=== PATIENT | female | born 1960 | race Hispanic/Latino ===

== ENCOUNTER 2016-12-02 19:51 | Inpatient (IN) | payer OTHER ==
[2016-12-02 20:02] VITALS: BMI 32.0
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
[2016-12-02 20:47] LABS: ADD MANUAL DIFF? NO
[2016-12-02 21:02] LABS: ALB/GLOB RATIO 1.2 (1.1-1.8); ALKALINE PHOSPHATASE 97 U/L (38-133); ALT/SGPT 34 U/L (7-56); AST/SGOT 40 U/L (15-39); BILIRUBIN,TOTAL 0.5 mg/dL (0.2-1.3); BLOOD UREA NITROGEN 13 mg/dL (7-21); CALCIUM 9.5 mg/dL (8.4-10.5); CARBON DIOXIDE 26 mmol/L (21-33); CHLORIDE 97 mmol/L (95-110); GFR AFRICAN-AMERICAN > 60; GLUCOSE,RANDOM 134 mg/dL (70-110); POTASSIUM 3.5 mmol/L (3.6-5.0); SODIUM 139 mmol/L (132-148); TOTAL PROTEIN 8.4 g/dL (5.8-8.3)
[2016-12-02 21:07] LABS: BASO # 0.04 K/mm3 (0.0-2.0); BASO % 0.5 % (0.0-3.0); EOS # 0.2 (0.0-0.7); EOS % 2.9 % (1.5-5.0); GRAN # 4.03 (1.4-6.5); HEMATOCRIT 43.7 % (36.0-48.0); LYMPH # 2.8 (1.2-3.4); LYMPH % 37.8 % (22.0-35.0); MEAN CELL VOLUME 88.8 fL (80.0-105.0); MEAN CORPUSCULAR HEMOGLOBIN 31.7 pg (25.0-35.0); MEAN CORPUSCULAR HGB CONC 35.7 g/dl (31.0-37.0); MEAN PLATELET VOLUME 9.8 fl (7.0-11.0); MONO # 0.4 (0.1-0.6); MONO % 4.8 % (1.0-6.0); PLATELET COUNT 289 10^3/uL (120.0-450.0); RED CELL DISTRIBUTION WIDTH 13.1 % (11.5-14.5); WHITE BLOOD COUNT 7.5 10^3/ul (4.5-11.0)
[2016-12-03 00:11] LABS: URINE BILIRUBIN NEGATIVE (NEGATIVE); URINE BLOOD NEGATIVE (NEGATIVE); URINE GLUCOSE (UA) NEGATIVE (NEGATIVE); URINE KETONE NEGATIVE (NEGATIVE); URINE LEUKOCYTE ESTERASE TRACE Leu/uL (NEGATIVE); URINE PROTEIN NEGATIVE mg/dL (<30 mg/dL); URINE UROBILINOGEN 0.2 E.U./dL (<1 E.U./dL)
[2016-12-03 00:13] LABS: URINE APPEARANCE SLIGHT-CLOUDY (CLEAR); URINE COLOR STRAW (YELLOW)
[2016-12-03 00:18] LABS: URINE EPITHELIAL CELLS 0 - 2 /hpf (0-5); URINE RBC 0 - 2 /hpf (0-2)
--- NOTE | 2016-12-03 07:18 | ED PDOC ---
Physical Exam Vital Signs Reviewed: Yes Vital Signs Temp Pulse Resp BP Pulse Ox 12/03/16 11:00 80 19 160/80 H 99 12/03/16 05:56 84 15 153/91 H 97 12/03/16 03:53 98 H 17 120/76 96 12/03/16 00:43 102 H 17 121/68 94 L 12/02/16 22:24 95 H 16 119/86 95 12/02/16 20:01 98.1 F 107 H 24 143/83 95 Temperature: Afebrile Blood Pressure: Normal Pulse: Regular Respiratory Rate: Normal Appearance: Positive for: Well-Appearing, Non-Toxic, Comfortable Pain Distress: None Mental Status: Positive for: Alert and Oriented X 3 Medical Decision Making ED Course and Treatment: 12/03/16 07:00 Patient signed out to me from overnight by Dr. Rivera, pending sobriety, reevaluation and disposition. 12/03/16 08:30 Patient medically clear for PES evaluation. 12/03/16 11:07 Case discussed with PES worker, who evaluated to the patient. She states she spoke with Dr. Swanson, who is aware and agrees with the plan to admit the patient to [facility] under her services for depression. PES work has discussed the plan with the patient, who expresses understanding. Patient given the opportunity to ask question, all questions were answered and there is agreement with the plan to be admitted to the hospital. - Lab Interpretations Lab Results: 12/02/16 20:40 12/02/16 20:40 Lab Results 12/02/16 23:30: Urine Color Straw, Urine Appearance Slight-cloudy, Urine pH 6.0 , Ur Specific [place] <= 1.005, Urine Protein Negative, Urine Glucose (UA) Negative, Urine Ketones Negative, Urine Blood Negative, Urine Nitrate Negative, Urine Bilirubin Negative, Urine Urobilinogen 0.2, Ur Leukocyte Esterase Trace H , Urine RBC 0 - 2, Urine WBC 2 - 5, Ur Epithelial Cells 0 - 2, Urine Opiates Screen Negative, Urine Methadone Screen Negative, Ur Barbiturates Screen Negative, Ur Phencyclidine Scrn Negative, Ur Amphetamines Screen Negative, U Benzodiazepines Scrn Positive H, U Oth Cocaine Metabols Negative, U Cannabinoids Screen Negative 12/02/16 20:40: WBC 7.5, RBC 4.92, Hgb 15.6, Hct 43.7, MCV 88.8, MCH 31.7, MCHC 35.7, RDW 13.1, Plt Count 289, MPV 9.8, Gran % 54.0, Lymph % (Auto) 37.8 H, [place] % (Auto) 4.8, Eos % (Auto) 2.9, Baso % (Auto) 0.5, Gran # 4.03, Lymph # 2.8 , [place] # 0.4, Eos # 0.2, Baso # 0.04, Sodium 139, Potassium 3.5 L, Chloride 97, Carbon Dioxide 26, Anion Gap 20, BUN 13, Creatinine 0.7, Est GFR ( Amer) > 60, Est GFR (Non-Af Amer) > 60, Random Glucose 134 H, Calcium 9.5, Total Bilirubin 0.5, AST 40 H, ALT 34, Alkaline Phosphatase 97, Total Protein 8.4 H, Albumin 4.6, Globulin 3.8, Albumin/Globulin Ratio 1.2, Salicylates < 1 L, Acetaminophen < 10.0 L, Alcohol, Quantitative 306 H* I have reviewed the lab results: Yes - RAD Interpretation Radiology Orders: 12/02/16 20:10 HEAD W/O CONTRAST [CT] Stat - Medication Orders Current Medication Orders: Acetaminophen (Tylenol 325mg Tab) 650 mg PO Q4 PRN PRN Reason: Pain Al Hydrox/Mg Hydrox/Simethicone (Maalox Plus 30 Ml) 30 ml PO DAILY PRN PRN Reason: Upset Stomach Folic Acid (Folic Acid) 1 mg PO DAILY [facility] Last Admin: 12/03/16 12:54 Dose: 1 MG Levothyroxine Sodium (Synthroid) 50 mcg PO ACB KAREN Lorazepam (Ativan) 2 mg PO QID KAREN PRN Reason: Protocol Last Admin: 12/03/16 12:54 Dose: 2 MG Behavioural Document 12/03/16 12:54 RGO (Rec: 12/03/16 12:54 RGO [id number]) Maintenance Maintenance Dose No Nonmedicinal Nonmedicinal Interventions Therapeutic Communication Behavior Behavior for Medication: Anxiety Lorazepam (Ativan) 2 mg PO TID PRN; Protocol PRN Reason: alcohol withdrawal Magnesium Hydroxide (Milk Of Magnesia) 30 ml PO DAILY PRN PRN Reason: Constipation Multivitamins (Thera Tab) 1 tab PO DAILY [facility] Last Admin: 12/03/16 12:54 Dose: 1 TAB Thiamine HCl (Vitamin B1 Tab) 100 mg PO DAILY KAREN Last Admin: 12/03/16 12:54 Dose: 100 MG Trazodone HCl (Desyrel) 50 mg PO HS PRN PRN Reason: Insomnia Discontinued Medications Acetaminophen (Tylenol 325mg Tab) 975 mg PO STAT STA Stop: 12/03/16 11:35 Last Admin: 12/03/16 11:48 Dose: 975 MG MAR Pain/Vitals Document 12/03/16 11:48 SE (Rec: 12/03/16 11:48 SE [id number]) Pain Reassessment Is This A Pain ReAssessment? No Sleep Is patient sleeping during reassessment? No Diphenhydramine HCl (Benadryl) 50 mg PO STAT STA Stop: 12/03/16 04:17 Last Admin: 12/03/16 04:35 Dose: 50 MG Levothyroxine Sodium (Synthroid) 50 mcg PO STAT STA Stop: 12/03/16 11:35 Last Admin: 12/03/16 11:48 Dose: 50 MCG - Scribe Statement The provider has reviewed the documentation as recorded by the Murphy Mendoza Provider Scribe Attestation: All medical record entries made by the Murphy were at my direction and personally dictated by me. I have reviewed the chart and agree that the record accurately reflects my personal performance of the history, physical exam, medical decision making, and the department course for this patient. I have also personally directed, reviewed, and agree with the discharge instructions and disposition. Disposition/Present on Arrival - Present on Arrival Any Indicators Present on Arrival: No History of DVT/PE: No History of Uncontrolled Diabetes: No Urinary Catheter: No History of Decub. Ulcer: No History Surgical Site Infection Following: None - Disposition Have Diagnosis and Disposition been Completed?: Yes Diagnosis: Depression Disposition: HOSPITALIZED Disposition Time: 11:07 Patient Plan: Admission Condition: STABLE
--- NOTE | 2016-12-03 07:26 | CT ---
PROCEDURE: CT HEAD WITHOUT CONTRAST. HISTORY: Fall COMPARISON: None available. TECHNIQUE: Technique: Axial computed tomography was performed through the head/brain without administration of intravenous contrast. This CT exam was performed using one or more of the following dose reduction techniques: Automated exposure control, adjustment of the MA and/or KV according to patient size, and/or use of iterative reconstruction technique. Radiation dose: Total exam DLP = 688.88 mGy-cm. FINDINGS: HEMORRHAGE: No intracranial hemorrhage. BRAIN: No mass effect or edema. No atrophy or chronic microvascular ischemic changes. VENTRICLES: Unremarkable. No hydrocephalus. CALVARIUM: There is no calvarial fracture. There is a small left parietal scalp hematoma. PARANASAL SINUSES: Unremarkable as visualized. No significant inflammatory changes. MASTOID AIR CELLS: Unremarkable as visualized. No inflammatory changes. OTHER FINDINGS: None. IMPRESSION: No acute intracranial abnormality. A preliminary report was provided by [employer] [facility].
[2016-12-03] MEDS ORDERED: Levothyroxine 50 MCG TAB PO STA (11:34)
[2016-12-03] MEDS ORDERED: Alum-Mag Hydrox-Simethicone Susp (30 mL) PO PRN (12:37)
[2016-12-03] MEDS ORDERED: Magnesium Hydroxide Susp 30 ml UD PO PRN (12:37)
[2016-12-03] MEDS: Multivitamin Therapeutic Tab PO SCH (12:54)
[2016-12-03] MEDS ORDERED: Pantoprazole 40 mg EC Tab PO STA (17:26)
[2016-12-04] MEDS: Pantoprazole 40 mg EC Tab PO SCH (08:21)
[2016-12-04] MEDS: Levothyroxine 50 MCG TAB PO SCH (08:22)
[2016-12-04] MEDS: Multivitamin Therapeutic Tab PO SCH (08:22)
[2016-12-04 08:24] LABS: CHOLESTEROL 300 mg/dL (130-200)
[2016-12-04 08:52] LABS: FREE T4 0.9 ng/dL (0.78-2.19)
[2016-12-04 09:06] LABS: THYROID STIMULATING HORMONE 6.53 mIU/mL (0.46-4.68)
--- NOTE | 2016-12-04 12:46 | CON ---
DATE: 12/04/2016 REFERRING PHYSICIAN: Dr. Roselia Swanson REASON FOR EVALUATION: Hypothyroidism and URI symptoms. CHIEF COMPLAINT AND HISTORY OF PRESENT ILLNESS: This is a 56-year-old female who is coming into the hospital with a past medical history of hypothyroidism after she had fallen. She was brought into [facility] ER for further evaluation. The patient states that she had gotten up from a chair and slipped and fell. She also says she has been drinking wine. She denies any chest pain. No shortness of breath. She also takes ____ that she does take Xanax as well and mixes with drinking. She has no complaint s of any chest pain. This morning, she says she has some congestion, but no cough. No fevers or chi lls. No weakness in the arms or the legs. REVIEW OF SYSTEMS: All other review of symptoms are within normal limits except as mentioned. ALLERGIES: FISH. HOME MEDICATIONS: None. FAMILY HISTORY: No family history. ALLERGIES: No known drug allergies. SOCIAL HISTORY: She does not smoke. She does drink beer daily. She does have a history of substanc e abuse. Her urine was positive for benzos. Alcohol was 306. PHYSICAL EXAMINATION: VITAL SIGNS: Temperature is 98.1, pulse of 79, blood pressure is 123/86, respirations 20. Height is 5 feet 2 inches. Weight is 175 pounds. BMI is 32. GENERAL: Patient lying in bed, flat, and in no apparent distress. HEAD AND NECK EXAM: Atraumatic, normocephalic. Conjunctivae are pink. Throat clear and mouth with moist mucosa. Oropharynx benign. EYES: Extraocular movements are intact. PERRLA. NECK: Supple. No JVD, thyromegaly, or adenopathy. No bruits. HEART: S1 and S2 regular rate and rhythm. No murmurs, rubs, or gallops. LUNGS: Clear to auscultation bilaterally. No wheezing rales or rhonchi appreciated. No retraction s on exam. ABDOMEN: Soft, nontender, nondistended. Bowel sounds are positive in all quadrants. No rebound. No hepatosplenomegaly. EXTREMITIES: No cyanosis, clubbing, or edema. NEURO: No facial asymmetry, tongue is midline, no uvula deviation. Power is 5/5 in upper extremity and 5/5 in lower extremity. Sensation is normal in upper extremity and lower extremity. PSYCH: Awake, alert, oriented x3. No anxiety or depression symptoms. Good insight. Normal affec t. : No CVA tenderness VASCULAR: 2+ pulses in carotid and pedal pulses. SKIN: No erythema or abnormal nodules noted. SPINE: Normal curvature. LYMPHADENOPATHY: No anterior cervical or posterior cervical adenopathy. No inguinal adenopathy. LABORATORY DATA: Reviewed. White count of 7.5, hemoglobin 15.6. Chemistry shows a sodium of 139, p otassium 3.9. LDL is 173, cholesterol is 300, TSH is 6.5. Urine shows that blood is negative, nitri pao are negative. Head CT done shows no acute intracranial findings. ASSESSMENT: 1. Alcoholism. 2. Fall. 3. Hypothyroidism. PLAN: The patient is going to be admitted to the hospital. She is currently on the psychiatric floo r. The patient is on folic acid, is going to continue with Protonix. The patient is on Synthroid fo r hypothyroidism. Thiamine has been started as well. She is on a regular diet. Currently, the cynthia ent does not require any antibiotics. I will place her on ____ for her congestion. The patient has no other active medical issues. We will sign off for now. Reconsult if needed. Jason Alcocer MD cc: [id number] TT: 12/04/2016 12:46:15 Confirmation # [id number] Dictation # [id number]
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
[2016-12-04] MEDS: Amoxicillin-Clav 875-125 mg Tab PO SCH (17:27)
[2016-12-05] MEDS: Levothyroxine 50 MCG TAB PO SCH (08:07)
[2016-12-05] MEDS: Amoxicillin-Clav 875-125 mg Tab PO SCH ×2 (08:27→16:18)
[2016-12-05] MEDS: Pantoprazole 40 mg EC Tab PO SCH (08:27)
[2016-12-05] MEDS: Multivitamin Therapeutic Tab PO SCH (08:28)
--- NOTE | 2016-12-05 12:50 | PCM.PYCHPN ---
Psychiatric Progress Note - Psychiatric Progress Note Patient seen today, length of contact: 30min Patient Chief Complaint: "I was very depressed and embarrassed, I had bad thoughts in my mind" Problems Identified/Issues Discussed: Suicide/ homicide prevention, past psychiatric h/o, current psychiatric symptoms , medical problems, risk/benefits and alternatives of medications, medications compliance, coping strategies, substance abuse h/o, relapse prevention, importance of follow up with psychiatrist and therapist, discharge plan. Medical Problems: UTI currently, hypothyroidism. Diagnostic Results: 12/02/16 20:40 12/02/16 20:40 Lab Results 12/04/16 07:45: Triglycerides 274 H, Cholesterol 300 H, LDL Cholesterol Direct 173 H, HDL Cholesterol 72 H, Free T4 0.90, TSH 3rd Generation 6.53 H, RPR Nonreactive 12/02/16 23:30: Urine Color Straw, Urine Appearance Slight-cloudy, Urine pH 6.0 , Ur Specific [place] <= 1.005, Urine Protein Negative, Urine Glucose (UA) Negative, Urine Ketones Negative, Urine Blood Negative, Urine Nitrate Negative, Urine Bilirubin Negative, Urine Urobilinogen 0.2, Ur Leukocyte Esterase Trace H , Urine RBC 0 - 2, Urine WBC 2 - 5, Ur Epithelial Cells 0 - 2, Urine Opiates Screen Negative, Urine Methadone Screen Negative, Ur Barbiturates Screen Negative, Ur Phencyclidine Scrn Negative, Ur Amphetamines Screen Negative, U Benzodiazepines Scrn Positive H, U Oth Cocaine Metabols Negative, U Cannabinoids Screen Negative 12/02/16 20:40: WBC 7.5, RBC 4.92, Hgb 15.6, Hct 43.7, MCV 88.8, MCH 31.7, MCHC 35.7, RDW 13.1, Plt Count 289, MPV 9.8, Gran % 54.0, Lymph % (Auto) 37.8 H, [place] % (Auto) 4.8, Eos % (Auto) 2.9, Baso % (Auto) 0.5, Gran # 4.03, Lymph # 2.8 , [place] # 0.4, Eos # 0.2, Baso # 0.04, Sodium 139, Potassium 3.5 L, Chloride 97, Carbon Dioxide 26, Anion Gap 20, BUN 13, Creatinine 0.7, Est GFR ( Amer) > 60, Est GFR (Non-Af Amer) > 60, Random Glucose 134 H, Calcium 9.5, Total Bilirubin 0.5, AST 40 H, ALT 34, Alkaline Phosphatase 97, Total Protein 8.4 H, Albumin 4.6, Globulin 3.8, Albumin/Globulin Ratio 1.2, Salicylates < 1 L, Acetaminophen < 10.0 L, Alcohol, Quantitative 306 H* Vital Signs Temp Pulse Resp BP Pulse Ox 12/05/16 07:22 98.1 F 79 20 130/99 H 12/04/16 16:32 84 151/94 H 12/04/16 09:50 98.1 F 79 20 123/86 12/03/16 11:00 80 19 160/80 H 99 12/03/16 05:56 84 15 153/91 H 97 12/03/16 03:53 98 H 17 120/76 96 12/03/16 00:43 102 H 17 121/68 94 L 12/02/16 22:24 95 H 16 119/86 95 12/02/16 20:01 98.1 F 107 H 24 143/83 95 DSM 5 Symptoms Update: shortly pt is 56yo dictation female, self reported history of major depressive disorder, history of one hospitalization in to the psychiatric inpatient unit here in [place], was under care of off Dr. 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 patient was seen today at the treatment team meeting, acceptable personal hygiene, seems to be careless about her appearance, fair ADLs. pt has mild tremor in her UE, vitals are stable. pt reported to feel nauseated, pt said she did not sleep last night, willing to increase dose of sonata. pt said that she feels depressed and "embarrased", pt said prior to come to the hospital she was feeling hopeless and she "needed to have help". pt c/o headache s/p fall, ibuprofen was started. pt still has difficulties to stay focused and concentrate. SIM symptoms, h/o panic attacks. as per staff pt started to go to groups, no behavioral issues. pt tolerated meds well, no side effects observed or reported, AIMS 0, no EPS. Impression: DSM 5 Diagnosis: major depressive disorder, recurrent, severe, with no psychotic symptoms Alcohol use disorder Alcohol withdrawal symptoms Rule out generalized anxiety disorder Rule out panic disorder Medication Change: Yes (sonata increased) Medical Record Reviewed: Yes Consults ordered or reviewed: medical consult appreciated. Mental Status Examination - Cognitive Function Orientation: Person, Place Memory: Intact Attention: Poor Concentration: Poor Association: WNL Fund of Knowledge: WNL - Mood Mood: Depressed, Anxious - Affect Affect: Flat - Speech Speech: Appropriate - Formal Thought Process Formal Thought Process: No Impairment - Suicidal Ideation Suicidal Ideation: No - Homicidal Ideation Homicidal Ideation: No Goal/Treatment Plan - Goal/Treatment Plan Need for Continued Stay: Remain at risks for inpatient hospitalization, Severe depression anxiety, Discharge may exacerbated symptoms, Severe functional impairment Progress Toward Problem(s) and Goals/Treatment Plan: milieu, structure, supportive therapy Effexor will be started 37.5 mg daily for depression and anxiety sonata will be increased to 10mg po daily Ativan 2 mg 4 times a day scheduled for alcohol withdrawal symptoms, will keep for now, pt has elevated BP Multivitamins thiamine and folic acid was started Naltrexone was discussed with the patient patient is willing to try that medication 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 pt wants to go to rehab Estimated Date of D/C: 12/08/16 (will monitor closely)
[2016-12-06] MEDS: Levothyroxine 50 MCG TAB PO SCH (06:42)
[2016-12-06] MEDS: Pantoprazole 40 mg EC Tab PO SCH (07:54)
[2016-12-06] MEDS: Multivitamin Therapeutic Tab PO SCH (07:54)
[2016-12-06] MEDS: Amoxicillin-Clav 875-125 mg Tab PO SCH ×2 (07:54→16:17)
--- NOTE | 2016-12-06 08:47 | PCM.PYCHPN ---
Psychiatric Progress Note - Psychiatric Progress Note Patient seen today, length of contact: 30min Patient Chief Complaint: "I feel nauseated" Problems Identified/Issues Discussed: Suicide/ homicide prevention, past psychiatric h/o, current psychiatric symptoms , medical problems, risk/benefits and alternatives of medications, medications compliance, coping strategies, substance abuse h/o, relapse prevention, importance of follow up with psychiatrist and therapist, discharge plan. Medical Problems: UTI currently, hypothyroidism. Diagnostic Results: 12/02/16 20:40 12/02/16 20:40 Lab Results 12/04/16 07:45: Triglycerides 274 H, Cholesterol 300 H, LDL Cholesterol Direct 173 H, HDL Cholesterol 72 H, Free T4 0.90, TSH 3rd Generation 6.53 H, RPR Nonreactive 12/02/16 23:30: Urine Color Straw, Urine Appearance Slight-cloudy, Urine pH 6.0 , Ur Specific [place] <= 1.005, Urine Protein Negative, Urine Glucose (UA) Negative, Urine Ketones Negative, Urine Blood Negative, Urine Nitrate Negative, Urine Bilirubin Negative, Urine Urobilinogen 0.2, Ur Leukocyte Esterase Trace H , Urine RBC 0 - 2, Urine WBC 2 - 5, Ur Epithelial Cells 0 - 2, Urine Opiates Screen Negative, Urine Methadone Screen Negative, Ur Barbiturates Screen Negative, Ur Phencyclidine Scrn Negative, Ur Amphetamines Screen Negative, U Benzodiazepines Scrn Positive H, U Oth Cocaine Metabols Negative, U Cannabinoids Screen Negative 12/02/16 20:40: WBC 7.5, RBC 4.92, Hgb 15.6, Hct 43.7, MCV 88.8, MCH 31.7, MCHC 35.7, RDW 13.1, Plt Count 289, MPV 9.8, Gran % 54.0, Lymph % (Auto) 37.8 H, [place] % (Auto) 4.8, Eos % (Auto) 2.9, Baso % (Auto) 0.5, Gran # 4.03, Lymph # 2.8 , [place] # 0.4, Eos # 0.2, Baso # 0.04, Sodium 139, Potassium 3.5 L, Chloride 97, Carbon Dioxide 26, Anion Gap 20, BUN 13, Creatinine 0.7, Est GFR ( Amer) > 60, Est GFR (Non-Af Amer) > 60, Random Glucose 134 H, Calcium 9.5, Total Bilirubin 0.5, AST 40 H, ALT 34, Alkaline Phosphatase 97, Total Protein 8.4 H, Albumin 4.6, Globulin 3.8, Albumin/Globulin Ratio 1.2, Salicylates < 1 L, Acetaminophen < 10.0 L, Alcohol, Quantitative 306 H* Vital Signs Temp Pulse Resp BP Pulse Ox 12/05/16 07:22 98.1 F 79 20 130/99 H 12/04/16 16:32 84 151/94 H 12/04/16 09:50 98.1 F 79 20 123/86 12/03/16 11:00 80 19 160/80 H 99 12/03/16 05:56 84 15 153/91 H 97 12/03/16 03:53 98 H 17 120/76 96 12/03/16 00:43 102 H 17 121/68 94 L 12/02/16 22:24 95 H 16 119/86 95 12/02/16 20:01 98.1 F 107 H 24 143/83 95 Temp Pulse Resp BP Pulse Ox 97.1 F L 89 20 147/101 H 99 12/06/16 07:38 12/06/16 07:38 12/06/16 07:38 12/06/16 07:38 12/03/16 11:00 DSM 5 Symptoms Update: shortly pt is 56yo dictation female, self reported history of major depressive disorder, history of one hospitalization in to the psychiatric inpatient unit here in [place], was under care of off Dr. 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 patient was seen today next to the nursing station, acceptable personal hygiene , affect was more bright. pt said that she still has nausea and she is not sure what it is related to. BP is elevated, will call for medical follow up. pt reported to feel nauseated, pt said she did not sleep last night, willing to increase dose of sonata. pt said that she feels depressed "I have some thoughts over night", when was asked for clarification "I have some good thoughts which could lead me to do well in the future", pt reported that she feels anxious, but overall little better. pt still has difficulties to stay focused and concentrate. SIM symptoms, h/o panic attacks. as per staff pt started to go to groups, no behavioral issues. pt tolerated meds well, no side effects observed or reported, AIMS 0, no EPS. Impression: DSM 5 Diagnosis: major depressive disorder, recurrent, severe, with no psychotic symptoms Alcohol use disorder Alcohol withdrawal symptoms Rule out generalized anxiety disorder Rule out panic disorder Medication Change: Yes (sonata d/c, ambien started, effexor increased) Medical Record Reviewed: Yes Consults ordered or reviewed: medical consult appreciated. medical follow up called Mental Status Examination - Cognitive Function Orientation: Person, Place Memory: Intact Attention: Poor (some improvement) Concentration: Poor (some improvement) Association: WNL Fund of Knowledge: WNL - Mood Mood: Depressed ("little better"), Anxious - Affect Affect: Flat - Speech Speech: Appropriate - Formal Thought Process Formal Thought Process: No Impairment - Suicidal Ideation Suicidal Ideation: No - Homicidal Ideation Homicidal Ideation: No Goal/Treatment Plan - Goal/Treatment Plan Need for Continued Stay: Remain at risks for inpatient hospitalization, Severe depression anxiety, Discharge may exacerbated symptoms, Severe functional impairment Progress Toward Problem(s) and Goals/Treatment Plan: milieu, structure, supportive therapy Effexor will be increased to 75 mg daily for depression and anxiety sonata d/c ambien 5mg hs started for insomnia Ativan 2 mg 4 times a day scheduled for alcohol withdrawal symptoms, will keep for now, pt has elevated BP Multivitamins thiamine and folic acid was started Naltrexone was discussed with the patient patient is willing to try that medication 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 pt wants to go to rehab Estimated Date of D/C: 12/08/16 (will monitor closely)
[2016-12-07] MEDS: Pantoprazole 40 mg EC Tab PO SCH (08:16)
[2016-12-07] MEDS: Levothyroxine 50 MCG TAB PO SCH (08:16)
[2016-12-07] MEDS: Amoxicillin-Clav 875-125 mg Tab PO SCH ×2 (08:17→17:06)
[2016-12-07] MEDS: Multivitamin Therapeutic Tab PO SCH (08:17)
--- NOTE | 2016-12-07 18:15 | PCM.PYCHPN ---
Psychiatric Progress Note - Psychiatric Progress Note Patient seen today, length of contact: 30min Patient Chief Complaint: "I am more hopeful" Problems Identified/Issues Discussed: Suicide/ homicide prevention, past psychiatric h/o, current psychiatric symptoms , medical problems, risk/benefits and alternatives of medications, medications compliance, coping strategies, substance abuse h/o, relapse prevention, importance of follow up with psychiatrist and therapist, discharge plan. Medical Problems: UTI currently, hypothyroidism. Diagnostic Results: 12/02/16 20:40 12/02/16 20:40 Lab Results 12/04/16 07:45: Triglycerides 274 H, Cholesterol 300 H, LDL Cholesterol Direct 173 H, HDL Cholesterol 72 H, Free T4 0.90, TSH 3rd Generation 6.53 H, RPR Nonreactive 12/02/16 23:30: Urine Color Straw, Urine Appearance Slight-cloudy, Urine pH 6.0 , Ur Specific [place] <= 1.005, Urine Protein Negative, Urine Glucose (UA) Negative, Urine Ketones Negative, Urine Blood Negative, Urine Nitrate Negative, Urine Bilirubin Negative, Urine Urobilinogen 0.2, Ur Leukocyte Esterase Trace H , Urine RBC 0 - 2, Urine WBC 2 - 5, Ur Epithelial Cells 0 - 2, Urine Opiates Screen Negative, Urine Methadone Screen Negative, Ur Barbiturates Screen Negative, Ur Phencyclidine Scrn Negative, Ur Amphetamines Screen Negative, U Benzodiazepines Scrn Positive H, U Oth Cocaine Metabols Negative, U Cannabinoids Screen Negative 12/02/16 20:40: WBC 7.5, RBC 4.92, Hgb 15.6, Hct 43.7, MCV 88.8, MCH 31.7, MCHC 35.7, RDW 13.1, Plt Count 289, MPV 9.8, Gran % 54.0, Lymph % (Auto) 37.8 H, [place] % (Auto) 4.8, Eos % (Auto) 2.9, Baso % (Auto) 0.5, Gran # 4.03, Lymph # 2.8 , [place] # 0.4, Eos # 0.2, Baso # 0.04, Sodium 139, Potassium 3.5 L, Chloride 97, Carbon Dioxide 26, Anion Gap 20, BUN 13, Creatinine 0.7, Est GFR ( Amer) > 60, Est GFR (Non-Af Amer) > 60, Random Glucose 134 H, Calcium 9.5, Total Bilirubin 0.5, AST 40 H, ALT 34, Alkaline Phosphatase 97, Total Protein 8.4 H, Albumin 4.6, Globulin 3.8, Albumin/Globulin Ratio 1.2, Salicylates < 1 L, Acetaminophen < 10.0 L, Alcohol, Quantitative 306 H* Vital Signs Temp Pulse Resp BP Pulse Ox 12/05/16 07:22 98.1 F 79 20 130/99 H 12/04/16 16:32 84 151/94 H 12/04/16 09:50 98.1 F 79 20 123/86 12/03/16 11:00 80 19 160/80 H 99 12/03/16 05:56 84 15 153/91 H 97 12/03/16 03:53 98 H 17 120/76 96 12/03/16 00:43 102 H 17 121/68 94 L 12/02/16 22:24 95 H 16 119/86 95 12/02/16 20:01 98.1 F 107 H 24 143/83 95 Temp Pulse Resp BP Pulse Ox 97.1 F L 89 20 147/101 H 99 12/06/16 07:38 12/06/16 07:38 12/06/16 07:38 12/06/16 07:38 12/03/16 11:00 Temp Pulse Resp BP Pulse Ox 98.3 F 80 20 139/79 99 12/07/16 07:06 12/07/16 16:24 12/07/16 07:06 12/07/16 16:24 12/03/16 11:00 DSM 5 Symptoms Update: shortly pt is 56yo dictation female, self reported history of major depressive disorder, history of one hospitalization in to the psychiatric inpatient unit here in [place], was under care of off Dr. 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 patient was seen today at the treatment team meeting, acceptable personal hygiene, affect was more bright. no nausea, vitals are stable. pt has no episodes of confusion, pt slept better. Pt wants to go to rehab facility on Saturday. pt said that she feels depressed but "I have a hope that I will be better, I can stay sober". pt still has difficulties to stay focused and concentrate. SIM symptoms, h/o panic attacks. as per staff pt started to go to groups, no behavioral issues. pt tolerated meds well, no side effects observed or reported, AIMS 0, no EPS. Impression: DSM 5 Diagnosis: major depressive disorder, recurrent, severe, with no psychotic symptoms Alcohol use disorder Alcohol withdrawal symptoms Rule out generalized anxiety disorder Rule out panic disorder Medication Change: Yes (seroquel started, ativan tapering down) Medical Record Reviewed: Yes Consults ordered or reviewed: medical consult appreciated. medical follow up called, meds adjustment appreciated Mental Status Examination - Cognitive Function Orientation: Person, Place Memory: Intact Attention: Poor (some improvement) Concentration: Poor (some improvement) Association: WNL Fund of Knowledge: WNL - Mood Mood: Depressed ("little better"), Anxious - Affect Affect: Flat - Speech Speech: Appropriate - Formal Thought Process Formal Thought Process: No Impairment - Suicidal Ideation Suicidal Ideation: No - Homicidal Ideation Homicidal Ideation: No Goal/Treatment Plan - Goal/Treatment Plan Need for Continued Stay: Remain at risks for inpatient hospitalization, Severe depression anxiety, Discharge may exacerbated symptoms, Severe functional impairment Progress Toward Problem(s) and Goals/Treatment Plan: milieu, structure, supportive therapy Effexor XR 75 mg daily for depression and anxiety sonata d/c seroquel 50mg hs ambien 5mg hs started for insomnia Ativan 2 mg 3 times a day scheduled for alcohol withdrawal symptoms OVER THE WEEKEND PLEASE TAPER ATIVAN OFF Multivitamins thiamine and folic acid Naltrexone was discussed does not want to be on it Flavia garcia workers compensation administrator evaluation Medical consult appreciated, patient was started on antibiotics for urinary tract infection We'll monitor closely. pt wants to go to rehab, possible transfer on Saturday Estimated Date of D/C: 12/10/16 (will monitor closely)
[2016-12-08 07:12] VITALS: O2SAT 96
[2016-12-08] MEDS: Levothyroxine 50 MCG TAB PO SCH (08:20)
[2016-12-08] MEDS: Pantoprazole 40 mg EC Tab PO SCH (08:20)
[2016-12-08] MEDS: Amoxicillin-Clav 875-125 mg Tab PO SCH ×2 (08:51→17:27)
[2016-12-08] MEDS: Multivitamin Therapeutic Tab PO SCH (08:51)
--- NOTE | 2016-12-08 09:06 | PCM.PYCHPN ---
Psychiatric Progress Note - Psychiatric Progress Note Patient seen today, length of contact: 25 min Patient Chief Complaint: "improving" Problems Identified/Issues Discussed: I reviewed assessment and recent notes. Patient was interviewed at bedside.Patient is calm and well oriented. Reports continued depression however indicates that she is improving. Feels neither hopeful or hopeless and denies suicidal thoughts. Affect is constricted. Thought process is coherent and delusions were not elicited. Patient denies any perceptual disturbance on the unit. She has been tolerating medications and denies any new discomfort or pain. Indicate that withdrawal symptoms are improving. Sleep is "on and off". Nursing notes indicate the patient is looking brighter and has been cooperative on the unit. There were no behavioral issues overnight. Diagnostic Results: major depressive disorder, recurrent, severe, with no psychotic symptoms Alcohol use disorder Alcohol withdrawal symptoms Rule out generalized anxiety disorder Rule out panic disorder Medication Change: Yes ( ativan tapering down) Medical Record Reviewed: Yes Mental Status Examination - Cognitive Function Orientation: Person, Place Memory: Intact Attention: Poor (some improvement) Concentration: Poor (some improvement) Association: WNL Fund of Knowledge: WNL - Mood Mood: Depressed ("little better"), Anxious - Affect Affect: Flat - Speech Speech: Appropriate - Formal Thought Process Formal Thought Process: No Impairment - Suicidal Ideation Suicidal Ideation: No - Homicidal Ideation Homicidal Ideation: No Goal/Treatment Plan - Goal/Treatment Plan Need for Continued Stay: Remain at risks for inpatient hospitalization, Severe depression anxiety, Discharge may exacerbated symptoms, Severe functional impairment Progress Toward Problem(s) and Goals/Treatment Plan: * c/w current tx and plan * c/w Ativan taper 2mg TID to 2 mg q12 today * No new weekend labs * Vitals reviewed and noted below: Selected Entries 12/07/16 12/07/16 07:06 16:24 Temperature 98.3 F Pulse Rate 76 80 Respiratory 20 Rate Blood Pressure 116/74 139/79 Estimated Date of D/C: 12/10/16 (will monitor closely)
[2016-12-09] MEDS: Pantoprazole 40 mg EC Tab PO SCH (07:52)
[2016-12-09] MEDS: Levothyroxine 50 MCG TAB PO SCH (07:52)
[2016-12-09] MEDS: Amoxicillin-Clav 875-125 mg Tab PO SCH ×2 (08:50→16:55)
[2016-12-09] MEDS: Multivitamin Therapeutic Tab PO SCH (08:50)
--- NOTE | 2016-12-09 09:23 | PCM.PYCHPN ---
Psychiatric Progress Note - Psychiatric Progress Note Patient seen today, length of contact: 25 min Patient Chief Complaint: "improving" Problems Identified/Issues Discussed: I reviewed recent notes and met with patient at bedside. Patient remains calm and well oriented. Reports continued depression however indicates that she is improving. Feels neither hopeful or hopeless and denies suicidal thoughts. Affect is constricted. Thought process is coherent and delusions were not elicited. Patient denies any perceptual disturbance on the unit. She has been tolerating medications and denies any new discomfort or pain. Indicate that withdrawal symptoms are improving. She still has some anxiety but generally handling taper of Ativan. Sleep is usually "on and off" however she slept fairly well last night. Nursing notes indicate that patient is controlled and looking brighter on unit. There were no behavioral issues over the weekend. Diagnostic Results: major depressive disorder, recurrent, severe, with no psychotic symptoms Alcohol use disorder Alcohol withdrawal symptoms Rule out generalized anxiety disorder Rule out panic disorder Medication Change: Yes ( ativan tapering down) Medical Record Reviewed: Yes (notes, reports, labs, vitals) Mental Status Examination - Cognitive Function Orientation: Person, Place Memory: Intact Attention: Poor (some improvement) Concentration: Poor (some improvement) Association: WNL Fund of Knowledge: WNL - Mood Mood: Depressed ("little better"), Anxious - Affect Affect: Flat - Speech Speech: Appropriate - Formal Thought Process Formal Thought Process: No Impairment - Suicidal Ideation Suicidal Ideation: No - Homicidal Ideation Homicidal Ideation: No Goal/Treatment Plan - Goal/Treatment Plan Need for Continued Stay: Remain at risks for inpatient hospitalization, Severe depression anxiety, Discharge may exacerbated symptoms, Severe functional impairment Progress Toward Problem(s) and Goals/Treatment Plan: * c/w current tx and plan * c/w Ativan taper from 2 mg q12 to 2 mg HS today and then discontinue * No new weekend labs * Vitals reviewed and noted below: Selected Entries 12/09/16 12/09/16 07:47 08:55 Temperature 98.2 F Pulse Rate 70 70 Respiratory 20 Rate Blood Pressure 110/74 110/74 Estimated Date of D/C: 12/10/16 (will monitor closely)
[2016-12-10] MEDS: Levothyroxine 50 MCG TAB PO SCH (06:57)
[2016-12-10] MEDS: Pantoprazole 40 mg EC Tab PO SCH (08:05)
[2016-12-10] MEDS: Multivitamin Therapeutic Tab PO SCH (08:45)
[2016-12-10] MEDS: Amoxicillin-Clav 875-125 mg Tab PO SCH ×2 (08:45→17:37)
--- NOTE | 2016-12-10 18:34 | PCM.PYCHPN ---
Psychiatric Progress Note - Psychiatric Progress Note Patient seen today, length of contact: 30min Patient Chief Complaint: "I am not ready, I am very anxious, I am not sure if I want to go to rehab, I had bad thoughts last night..." Problems Identified/Issues Discussed: Suicide/ homicide prevention, past psychiatric h/o, current psychiatric symptoms , medical problems, risk/benefits and alternatives of medications, medications compliance, coping strategies, substance abuse h/o, relapse prevention, importance of follow up with psychiatrist and therapist, discharge plan. Medical Problems: UTI currently, hypothyroidism. Diagnostic Results: 12/02/16 20:40 12/02/16 20:40 Lab Results 12/04/16 07:45: Triglycerides 274 H, Cholesterol 300 H, LDL Cholesterol Direct 173 H, HDL Cholesterol 72 H, Free T4 0.90, TSH 3rd Generation 6.53 H, RPR Nonreactive 12/02/16 23:30: Urine Color Straw, Urine Appearance Slight-cloudy, Urine pH 6.0 , Ur Specific [place] <= 1.005, Urine Protein Negative, Urine Glucose (UA) Negative, Urine Ketones Negative, Urine Blood Negative, Urine Nitrate Negative, Urine Bilirubin Negative, Urine Urobilinogen 0.2, Ur Leukocyte Esterase Trace H , Urine RBC 0 - 2, Urine WBC 2 - 5, Ur Epithelial Cells 0 - 2, Urine Opiates Screen Negative, Urine Methadone Screen Negative, Ur Barbiturates Screen Negative, Ur Phencyclidine Scrn Negative, Ur Amphetamines Screen Negative, U Benzodiazepines Scrn Positive H, U Oth Cocaine Metabols Negative, U Cannabinoids Screen Negative 12/02/16 20:40: WBC 7.5, RBC 4.92, Hgb 15.6, Hct 43.7, MCV 88.8, MCH 31.7, MCHC 35.7, RDW 13.1, Plt Count 289, MPV 9.8, Gran % 54.0, Lymph % (Auto) 37.8 H, [place] % (Auto) 4.8, Eos % (Auto) 2.9, Baso % (Auto) 0.5, Gran # 4.03, Lymph # 2.8 , [place] # 0.4, Eos # 0.2, Baso # 0.04, Sodium 139, Potassium 3.5 L, Chloride 97, Carbon Dioxide 26, Anion Gap 20, BUN 13, Creatinine 0.7, Est GFR ( Amer) > 60, Est GFR (Non-Af Amer) > 60, Random Glucose 134 H, Calcium 9.5, Total Bilirubin 0.5, AST 40 H, ALT 34, Alkaline Phosphatase 97, Total Protein 8.4 H, Albumin 4.6, Globulin 3.8, Albumin/Globulin Ratio 1.2, Salicylates < 1 L, Acetaminophen < 10.0 L, Alcohol, Quantitative 306 H* Vital Signs Temp Pulse Resp BP Pulse Ox 12/05/16 07:22 98.1 F 79 20 130/99 H 12/04/16 16:32 84 151/94 H 12/04/16 09:50 98.1 F 79 20 123/86 12/03/16 11:00 80 19 160/80 H 99 12/03/16 05:56 84 15 153/91 H 97 12/03/16 03:53 98 H 17 120/76 96 12/03/16 00:43 102 H 17 121/68 94 L 12/02/16 22:24 95 H 16 119/86 95 12/02/16 20:01 98.1 F 107 H 24 143/83 95 Temp Pulse Resp BP Pulse Ox 97.1 F L 89 20 147/101 H 99 12/06/16 07:38 12/06/16 07:38 12/06/16 07:38 12/06/16 07:38 12/03/16 11:00 Temp Pulse Resp BP Pulse Ox 98.3 F 80 20 139/79 99 12/07/16 07:06 12/07/16 16:24 12/07/16 07:06 12/07/16 16:24 12/03/16 11:00 Temp Pulse Resp BP Pulse Ox 97.8 F 67 20 152/98 H 96 12/10/16 17:41 12/10/16 17:50 12/10/16 07:00 12/10/16 17:50 12/08/16 06:00 DSM 5 Symptoms Update: shortly pt is 56yo dictation female, self reported history of major depressive disorder, history of one hospitalization in to the psychiatric inpatient unit here in [place], was under care of off Dr. 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 patient was seen today at the treatment team meeting, acceptable personal hygiene, pt said that she is not ready for discharge, pt said that she does not want to go to rehab, she feels anxious about it, pt said that she has suicidal thoughts, last night "it was strong". pt still has difficulties to stay focused and concentrate, insomnia. SIM symptoms, h/o panic attacks. as per staff pt started to go to groups, no behavioral issues. pt tolerated meds well, no side effects observed or reported, AIMS 0, no EPS. Impression: DSM 5 Diagnosis: major depressive disorder, recurrent, severe, with no psychotic symptoms Alcohol use disorder Alcohol withdrawal symptoms Rule out generalized anxiety disorder Rule out panic disorder Medication Change: Yes (effexor increased, vistaril started) Medical Record Reviewed: Yes (notes, reports, labs, vitals) Consults ordered or reviewed: medical consult appreciated. medical follow up called, meds adjustment appreciated Mental Status Examination - Cognitive Function Orientation: Person, Place Memory: Intact Attention: Poor (some improvement) Concentration: Poor (some improvement) Association: WNL Fund of Knowledge: WNL - Mood Mood: Depressed ("little better"), Anxious - Affect Affect: Flat - Speech Speech: Appropriate - Formal Thought Process Formal Thought Process: No Impairment - Suicidal Ideation Suicidal Ideation: No - Homicidal Ideation Homicidal Ideation: No Goal/Treatment Plan - Goal/Treatment Plan Need for Continued Stay: Remain at risks for inpatient hospitalization, Severe depression anxiety, Discharge may exacerbated symptoms, Severe functional impairment Progress Toward Problem(s) and Goals/Treatment Plan: milieu, structure, supportive therapy Effexor XR 150 mg daily for depression and anxiety sonata d/c seroquel 50mg hs vistaril started ambien 5mg hs started for insomnia Ativan was weaned off Multivitamins thiamine and folic acid Naltrexone was discussed does not want to be on it Xanax dc mental health social worker evaluation Medical consult appreciated, patient was started on antibiotics for urinary tract infection We'll monitor closely. pt changed her mind and she does not want to go to rehab Estimated Date of D/C: 12/13/16 (will monitor closely)
[2016-12-11] MEDS: Pantoprazole 40 mg EC Tab PO SCH (07:08)
[2016-12-11] MEDS: Levothyroxine 50 MCG TAB PO SCH (07:09)
[2016-12-11 08:26] VITALS: RESP 18
[2016-12-11] MEDS: Venlafaxine 75 mg ER Cap PO SCH (09:28)
[2016-12-11] MEDS: Multivitamin Therapeutic Tab PO SCH (09:30)
--- NOTE | 2016-12-11 11:56 | PCM.PYCHPN ---
Psychiatric Progress Note - Psychiatric Progress Note Patient seen today, length of contact: 30min Patient Chief Complaint: "I am anxious" Problems Identified/Issues Discussed: Suicide/ homicide prevention, past psychiatric h/o, current psychiatric symptoms , medical problems, risk/benefits and alternatives of medications, medications compliance, coping strategies, substance abuse h/o, relapse prevention, importance of follow up with psychiatrist and therapist, discharge plan. Medical Problems: UTI currently, hypothyroidism. Diagnostic Results: 12/02/16 20:40 12/02/16 20:40 Lab Results 12/04/16 07:45: Triglycerides 274 H, Cholesterol 300 H, LDL Cholesterol Direct 173 H, HDL Cholesterol 72 H, Free T4 0.90, TSH 3rd Generation 6.53 H, RPR Nonreactive 12/02/16 23:30: Urine Color Straw, Urine Appearance Slight-cloudy, Urine pH 6.0 , Ur Specific [place] <= 1.005, Urine Protein Negative, Urine Glucose (UA) Negative, Urine Ketones Negative, Urine Blood Negative, Urine Nitrate Negative, Urine Bilirubin Negative, Urine Urobilinogen 0.2, Ur Leukocyte Esterase Trace H , Urine RBC 0 - 2, Urine WBC 2 - 5, Ur Epithelial Cells 0 - 2, Urine Opiates Screen Negative, Urine Methadone Screen Negative, Ur Barbiturates Screen Negative, Ur Phencyclidine Scrn Negative, Ur Amphetamines Screen Negative, U Benzodiazepines Scrn Positive H, U Oth Cocaine Metabols Negative, U Cannabinoids Screen Negative 12/02/16 20:40: WBC 7.5, RBC 4.92, Hgb 15.6, Hct 43.7, MCV 88.8, MCH 31.7, MCHC 35.7, RDW 13.1, Plt Count 289, MPV 9.8, Gran % 54.0, Lymph % (Auto) 37.8 H, [place] % (Auto) 4.8, Eos % (Auto) 2.9, Baso % (Auto) 0.5, Gran # 4.03, Lymph # 2.8 , [place] # 0.4, Eos # 0.2, Baso # 0.04, Sodium 139, Potassium 3.5 L, Chloride 97, Carbon Dioxide 26, Anion Gap 20, BUN 13, Creatinine 0.7, Est GFR ( Amer) > 60, Est GFR (Non-Af Amer) > 60, Random Glucose 134 H, Calcium 9.5, Total Bilirubin 0.5, AST 40 H, ALT 34, Alkaline Phosphatase 97, Total Protein 8.4 H, Albumin 4.6, Globulin 3.8, Albumin/Globulin Ratio 1.2, Salicylates < 1 L, Acetaminophen < 10.0 L, Alcohol, Quantitative 306 H* Vital Signs Temp Pulse Resp BP Pulse Ox 12/05/16 07:22 98.1 F 79 20 130/99 H 12/04/16 16:32 84 151/94 H 12/04/16 09:50 98.1 F 79 20 123/86 12/03/16 11:00 80 19 160/80 H 99 12/03/16 05:56 84 15 153/91 H 97 12/03/16 03:53 98 H 17 120/76 96 12/03/16 00:43 102 H 17 121/68 94 L 12/02/16 22:24 95 H 16 119/86 95 12/02/16 20:01 98.1 F 107 H 24 143/83 95 Temp Pulse Resp BP Pulse Ox 97.1 F L 89 20 147/101 H 99 12/06/16 07:38 12/06/16 07:38 12/06/16 07:38 12/06/16 07:38 12/03/16 11:00 Temp Pulse Resp BP Pulse Ox 98.3 F 80 20 139/79 99 12/07/16 07:06 12/07/16 16:24 12/07/16 07:06 12/07/16 16:24 12/03/16 11:00 Temp Pulse Resp BP Pulse Ox 97.8 F 67 20 152/98 H 96 12/10/16 17:41 12/10/16 17:50 12/10/16 07:00 12/10/16 17:50 12/08/16 06:00 Temp Pulse Resp BP Pulse Ox 97.5 F L 71 18 126/84 96 12/11/16 08:25 12/11/16 09:29 12/11/16 08:25 12/11/16 09:29 12/08/16 06:00 DSM 5 Symptoms Update: shortly pt is 56yo dictation female, self reported history of major depressive disorder, history of one hospitalization in to the psychiatric inpatient unit here in [place], was under care of off Dr. 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 patient was seen today at the treatment team meeting, acceptable personal hygiene, pt said she had a rough night, pt reported still feeling hopeless and asking herself "why i am here on this planet of [place]?", pt denied active thoughts of harming self or others, pt said that vistaril and benadryl giving her dry mouth and she cannot tolerate it. Considering the fact pt does not want to go to the rehab, pt will benefit from small dose of xanax, pt did not tolerate ativan or klonopin, pt was taking xanax "for years. pt still has difficulties to stay focused and concentrate, insomnia. SIM symptoms, h/o panic attacks. as per staff pt started to go to groups, no behavioral issues. pt tolerated meds well, no side effects observed or reported, AIMS 0, no EPS. Impression: DSM 5 Diagnosis: major depressive disorder, recurrent, severe, with no psychotic symptoms Alcohol use disorder Alcohol withdrawal symptoms Rule out generalized anxiety disorder Rule out panic disorder Medication Change: Yes (effexor increased, vistaril started) Medical Record Reviewed: Yes (notes, reports, labs, vitals) Consults ordered or reviewed: medical consult appreciated. medical follow up called, meds adjustment appreciated Mental Status Examination - Cognitive Function Orientation: Person, Place Memory: Intact Attention: Poor (some improvement) Concentration: Poor (some improvement) Association: WNL Fund of Knowledge: WNL - Mood Mood: Depressed ("little better"), Anxious - Affect Affect: Flat - Speech Speech: Appropriate - Formal Thought Process Formal Thought Process: No Impairment - Suicidal Ideation Suicidal Ideation: No - Homicidal Ideation Homicidal Ideation: No Goal/Treatment Plan - Goal/Treatment Plan Need for Continued Stay: Remain at risks for inpatient hospitalization, Severe depression anxiety, Discharge may exacerbated symptoms, Severe functional impairment Progress Toward Problem(s) and Goals/Treatment Plan: milieu, structure, supportive therapy Effexor XR 150 mg daily for depression and anxiety sonata d/c seroquel 50mg hs vistaril started ambien 5mg hs started for insomnia Multivitamins thiamine and folic acid Naltrexone was discussed does not want to be on it Xanax will be resumed 0.5mg po bid and 1mg hs structural worker evaluation Medical consult appreciated, patient was started on antibiotics for urinary tract infection We'll monitor closely. pt is scheduled for d/c tomorrow, will call in for prescriptions. Estimated Date of D/C: 12/12/16 (will monitor closely)
[2016-12-12 06:25] VITALS: BP 102/65; PULSE 60; TEMP 97.9
[2016-12-12] MEDS: Levothyroxine 50 MCG TAB PO SCH (06:53)
[2016-12-12] MEDS: Pantoprazole 40 mg EC Tab PO SCH (07:46)
[2016-12-12] MEDS: Venlafaxine 75 mg ER Cap PO SCH (08:11)
[2016-12-12] MEDS: Multivitamin Therapeutic Tab PO SCH (08:12)
--- NOTE | 2016-12-12 14:41 | PCM.PYCHDC ---
Mental Status Examination - Mental Status Examination Orientation: Person, Place, Situation Memory: Intact Mood: Neutral Affect: Broad Speech: Appropriate Attention: WNL Concentration: WNL Association: WNL Fund of Knowledge: WNL Formal Thought Process: No Impairment Description of patient's judgement and insight: Fair insight and judgment Psychotic Thoughts and Behaviors: Denied AVH, paranoia. No delusions elicited Suicidal Ideation: No Current Homicidal Ideation?: No Discharge Summary - Discharge Note Reason for Hospitalization: Pt is 56yo female, self reported history of major depressive disorder, history of one hospitalization in to the psychiatric inpatient unit here in [place], was under care of off Dr. Newell, patient has history of opioid/pain medication addiction (in long and sustained remission), patient has chronic alcohol dependence, lives alone, brought herself to the hospital looking for help for her depressive symptoms, possible suicidal ideation with the plan to overdose on meds, pt is currently does not have psychiatrist, was drinking excessively, needs further evaluation and stabilization, medication initiation and titration. Psychiatric History (includes Medical, Family, Personal Hx): see HPI Laboratory Data: Laboratory Tests 12/02/16 12/02/16 12/04/16 20:40 23:30 07:45 WBC 7.5 RBC 4.92 Hgb 15.6 Hct 43.7 MCV 88.8 MCH 31.7 MCHC 35.7 RDW 13.1 Plt Count 289 MPV 9.8 Gran % 54.0 Lymph % (Auto) 37.8 H [place] % (Auto) 4.8 Eos % (Auto) 2.9 Baso % (Auto) 0.5 Gran # 4.03 Lymph # 2.8 [place] # 0.4 Eos # 0.2 Baso # 0.04 Sodium 139 Potassium 3.5 L Chloride 97 Carbon Dioxide 26 Anion Gap 20 BUN 13 Creatinine 0.7 Est GFR ( Amer) > 60 Est GFR (Non-Af Amer) > 60 Random Glucose 134 H Calcium 9.5 Total Bilirubin 0.5 AST 40 H ALT 34 Alkaline Phosphatase 97 Total Protein 8.4 H Albumin 4.6 Globulin 3.8 Albumin/Globulin Ratio 1.2 Triglycerides 274 H Cholesterol 300 H LDL Cholesterol Direct 173 H HDL Cholesterol 72 H Free T4 0.90 TSH 3rd Generation 6.53 H Urine Color Straw Urine Appearance Slight-cloudy Urine pH 6.0 Ur Specific [place] <= 1.005 Urine Protein Negative Urine Glucose (UA) Negative Urine Ketones Negative Urine Blood Negative Urine Nitrate Negative Urine Bilirubin Negative Urine Urobilinogen 0.2 Ur Leukocyte Esterase Trace H Urine RBC 0 - 2 Urine WBC 2 - 5 Ur Epithelial Cells 0 - 2 Salicylates < 1 L Urine Opiates Screen Negative Urine Methadone Screen Negative Acetaminophen < 10.0 L Ur Barbiturates Screen Negative Ur Phencyclidine Scrn Negative Ur Amphetamines Screen Negative U Benzodiazepines Scrn Positive H U Oth Cocaine Metabols Negative U Cannabinoids Screen Negative Alcohol, Quantitative 306 H* RPR Nonreactive Consultations:: List each consultation separately and include: 1. Reason for request. 2. Findings. 3. Follow-up Consultations: Seen by Dr. Alcocer on 12/04/[address] Alcocer signed off at the time as there were no active medical issues. Summary of Hospital Course include:: 1. Description of specific treatment plan utilized for patients during their course of treatmen. 2. Summarize the time- course for resolution of acute symptoms and/or regressed behaviors. 3. Describe issues identified and worked on during hospitalization. 4. Describe medication utilized. 5. Describe medical problems identified and treated. 6. Reassessment of suicide risk Summary of Hospital Course: Patient is scheduled for discharge today and this provider meets with her to ensure stability for discharge. Patient reports improvement since her admission and denies having any new concerns. Indicates mood is improved and that she is more hopeful. Denies having any wishes, suicidal thoughts or thoughts to harm others. Patient also denies having any perceptual disturbance and she is not responding internal stimuli. Delusions were not elicited during today's interview. Focus and eye contact are good. Patient is related and affect demonstrates moderate range with appropriate reactivity. Overall she feels very comfortable with today's discharge date and after care plans. - Final Diagnosis (DSM 5) Condition upon Discharge: STABLE DSM 5: Major depressive disorder, recurrent, severe, with no psychotic symptoms Alcohol use disorder Alcohol withdrawal symptoms Rule out generalized anxiety disorder Rule out panic disorder Disposition: HOME/ ROUTINE Follow-up Treatment Plan: * Patient referred to [facility] where she will be following up with Dr. Hall Prescriptions/Medication Reconciliation: Zolpidem [Ambien] 5 mg PO HS #7 tab Loratadine [Claritin] 10 mg PO DAILY #7 tab Venlafaxine [Effexor-XR] 75 mg PO DAILY #7 cer Folic Acid 1 mg PO DAILY #7 tab Ibuprofen [Motrin Tab] 600 mg PO Q8 #20 tab amLODIPine [Norvasc] 5 mg PO DAILY #7 tab Pantoprazole [Protonix EC Tab] 40 mg PO 0630 #7 ect QUEtiapine [SEROquel] 1 tab PO DAILY #30 tab Quetiapine Fumarate [Seroquel] 50 mg PO HS #7 tablet Levothyroxine [Synthroid] 50 mcg PO ACB #7 tab Multivitamin Therapeutic Tab [Thera Tab] 1 tab PO DAILY #7 tab Thiamine [Vitamin B1 Tab] 100 mg PO DAILY #7 tab - Smoking Cessation Smoking Cessation Medication prescribed: No - Antipsychotic Medications Pt discharged on 2 or more routine antipsychotic medications: No
== END 2016-12-12 10:35 | disposition home or self-care (01) | DRG 885 ==
LOC: ED 19:51 → ERH 12-03 11:10 → PSYC 12-03 11:58
PROVIDERS: ADMIT Psychiatry & Neurology Psychiatry; ATTEND Psychiatry & Neurology Psychiatry
PROC: GZ3ZZZZ Medication Management (ICD-10-PCS; principal; 2016-12-03)
DX: F33.2 Major depressive disorder, recurrent severe without psychotic features (principal); N39.0 Urinary tract infection, site not specified; F10.239 Alcohol dependence with withdrawal, unspecified; Y90.8 Blood alcohol level of 240 mg/100 ml or more; I10 Essential (primary) hypertension; E03.9 Hypothyroidism, unspecified; F41.0 Panic disorder [episodic paroxysmal anxiety]; G47.00 Insomnia, unspecified; K21.9 Gastro-esophageal reflux disease without esophagitis; R51 Headache; Z91.5 Personal history of self-harm; Z91.81 History of falling

== ENCOUNTER 2018-07-21 16:42 | Inpatient (IN) | payer OTHER ==
[2018-07-21] MEDS ORDERED: Morphine 4 mg/ml ISec IVP STA (17:38)
--- NOTE | 2018-07-21 17:42 | ED PDOC ---
Arrival/HPI - General Chief Complaint: Abdominal Pain Time Seen by Provider: 07/21/18 16:46 Historian: Patient - History of Present Illness Narrative History of Present Illness (Text): 07/21/18 17:38 58 year old female, with past medical history of hypothyroidism, presents to the Emergency department complaining of right sided abdominal pain since 3 weeks. Patient states she was started on two unknown antibiotics by an outside PMD for diverticulitis 3 weeks ago and informs finishing the course a week ago. Patient informs persistent pain even after completion of antibiotics, prompting her to present to her PMD Dr. Alcocer, who subsequently referred patient to the ED for evaluation. Patient informs associated fever and nausea but denies any vomiting. Complaining of dysuria. Denies shortness of breath, chest pain, neck pain, back pain or any other complaints. PMD: Dr. Alcocer 07/21/18 20:54 Time/Duration: > week Symptom Onset: Gradual Symptom Course: Unchanged Quality: Aching Activities at Onset: Light Context: Home Past Medical History - Provider Review Nursing Documentation Reviewed: Yes - Infectious Disease Hx of Infectious Diseases: None - Reproductive Menopause: Yes - Cardiac Hx Cardiac Disorders: Yes - Pulmonary Hx Asthma: Yes Hx Bronchitis: Yes Hx Sleep Apnea: Yes - Neurological Hx Dizziness: Yes - HEENT Hx HEENT Disorder: No - Renal Hx Renal Disorder: No - Endocrine/Metabolic Hx Hypothyroidism: Yes - Hematological/Oncological Hx Blood Disorders: No Other/Comment: elevated LFT's - Integumentary Hx Dermatological Disorder: No - Musculoskeletal/Rheumatological Hx Arthritis: Yes Hx Back Pain: Yes Hx Falls: No - Gastrointestinal Hx Gastrointestinal Disorders: No Hx Gastroesophageal Reflux: Yes - Genitourinary/Gynecological Hx Genitourinary Disorders: No Hx Reproductive Disorders: No - Psychiatric Hx Anxiety: Yes Hx Depression: Yes Hx Substance Use: Yes Other/Comment: Past suicide attempt 3 years ago by attempt to overdose - Past Surgical History Past Surgical History: No Previous - Anesthesia Hx Anesthesia: No - Suicidal Assessment Feels Threatened In Home Enviroment: No Family/Social History - Physician Review Nursing Documentation Reviewed: Yes Family/Social History: Unknown Family HX Smoking Status: Never Smoked Hx Alcohol Use: Yes (beer daily) Frequency of alcohol use: Socially Hx Substance Use: Yes Hx Substance Use Treatment: No Allergies/Home Meds Allergies/Adverse Reactions: Allergies FISH Allergy (Verified 12/03/16 15:57) ANAPHYLAXIS Home Medications: Home Meds Medication Instructions Recorded Confirmed RX: Levothyroxine [Synthroid] 75 mcg PO ACB 07/21/18 07/21/18 Vyvance 70 mg PO DAILY 07/21/18 07/21/18 Review of Systems - Review of Systems Constitutional: Fevers Eyes: absent: Vision Changes Respiratory: absent: SOB, Cough Cardiovascular: absent: Chest Pain, ELIZONDO Gastrointestinal: Abdominal Pain (right sided abdominal pain), Nausea. absent: Constipation, Diarrhea, Vomiting Genitourinary Female: absent: Dysuria, Urine Output Changes Musculoskeletal: absent: Back Pain, Neck Pain Skin: absent: Rash Neurological: absent: Headache, Dizziness Endocrine: absent: Diaphoresis Physical Exam Vital Signs Reviewed: Yes Vital Signs Temp Pulse Resp BP Pulse Ox 07/21/18 16:43 100 F H 100 H 18 127/84 95 Temperature: Afebrile Blood Pressure: Normal Pulse: Tachycardic Respiratory Rate: Normal Appearance: Positive for: Well-Appearing, Non-Toxic, Comfortable Pain Distress: None Mental Status: Positive for: Alert and Oriented X 3 - Systems Exam Head: Present: Atraumatic, Normocephalic Pupils: Present: PERRL Extroacular Muscles: Present: EOMI Conjunctiva: Present: Normal Mouth: Present: Moist Mucous Membranes Respiratory/Chest: Present: Clear to Auscultation, Good Air Exchange. No: Respiratory Distress, Accessory Muscle Use Cardiovascular: Present: Regular Rate and Rhythm, Normal S1, S2. No: Murmurs Abdomen: Present: Tenderness (left lower quadrant abdominal tenderness). No: Distention, Peritoneal Signs Upper Extremity: Present: Normal Inspection. No: Cyanosis, Edema Lower Extremity: Present: Normal Inspection. No: Edema Neurological: Present: GCS=15, CN II-XII Intact, Speech Normal Skin: Present: Warm, Dry, Normal Color. No: Rashes Psychiatric: Present: Alert, Oriented x 3, Normal Insight, Normal Concentration Medical Decision Making ED Course and Treatment: 07/21/18 17:38 Impression: 58 year old female presents to the Emergency department complaining of right sided abdominal pain. Previously treated for diverticulitis Plan: -- EKG -- VBG -- CT of Abdomen/Pelvis -- Labs -- Morphine -- Reassess and disposition Prior Visits: Notes and results from previous visits were reviewed. Progress Notes: 07/21/18 20:[address] Cortez as pending urinalysis and CT results. - Scribe Statement The provider has reviewed the documentation as recorded by the Scribe David Hauser. All medical record entries made by the Scribe were at my direction and personally dictated by me. I have reviewed the chart and agree that the record accurately reflects my personal performance of the history, physical exam, medical decision making, and the department course for this patient. I have also personally directed, reviewed, and agree with the discharge instructions and disposition. Disposition/Present on Arrival - Present on Arrival Any Indicators Present on Arrival: No History of DVT/PE: No History of Uncontrolled Diabetes: No Urinary Catheter: No History of Decub. Ulcer: No History Surgical Site Infection Following: None - Disposition Have Diagnosis and Disposition been Completed?: Yes Diagnosis: Abdominal pain Disposition Time: 20:56 Condition: UNKNOWN Forms: [employer] ([place])
[2018-07-21 18:25] LABS: VENOUS BLOOD GAS BASE EXCESS 4.2 mmol/L (0.0-2.0); VENOUS BLOOD GAS PO2 52 mm/Hg (30-55); VENOUS BLOOD PH 7.39 (7.32-7.43)
[2018-07-21 18:26] LABS: BASO # 0.02 K/mm3 (0.0-2.0); BASO % 0.2 % (0.0-3.0); EOS # 0.1 (0.0-0.7); EOS % 0.7 % (1.5-5.0); GRAN # 9.24 (1.4-6.5); HEMOGLOBIN 14.1 g/dL (12.0-16.0); LYMPH # 1.5 (1.2-3.4); LYMPH % 12.6 % (22.0-35.0); MEAN CELL VOLUME 86.7 fl (80.0-105.0); MEAN CORPUSCULAR HEMOGLOBIN 29.7 pg (25.0-35.0); MEAN CORPUSCULAR HGB CONC 34.2 g/dl (31.0-37.0); MEAN PLATELET VOLUME 9.3 fl (7.0-11.0); MONO # 0.9 (0.1-0.6); MONO % 7.5 % (1.0-6.0); RBC 4.75 10^6/uL (3.5-6.1); RED CELL DISTRIBUTION WIDTH 13.6 % (11.5-14.5); WHITE BLOOD COUNT 11.7 10^3/uL (4.5-11.0)
[2018-07-21 18:35] LABS: ALB/GLOB RATIO 1.2 (1.1-1.8); ALBUMIN 4.1 g/dL (3.0-4.8); ALT/SGPT 21 U/L (7-56); AST/SGOT 27 U/L (14-36); BLOOD UREA NITROGEN 6 mg/dL (7-21); CALCIUM 9.4 mg/dL (8.4-10.5); GFR NON-AFRICAN AMERICAN > 60; LIPASE 51 U/L (23-300)
[2018-07-21] MEDS ORDERED: Iohexol 350 MG/100 ML VIAL ONE (19:31)
[2018-07-21] MEDS ORDERED: Sodium Chloride 0.9% 500 ML IV STA (20:54)
--- NOTE | 2018-07-21 21:13 | ED PDOC ---
Physical Exam Vital Signs Temp Pulse Resp BP Pulse Ox 07/21/18 16:43 100 F H 100 H 18 127/84 95 Medical Decision Making ED Course and Treatment: 07/21/18 21:00 Case endorsed to me by Dr. Eisenberg, pending urinalysis, CT Abdomen and Pelvis, reevaluation, and disposition. 07/21/18 21:11 CT Abdomen and Pelvis shows: The liver is of uniform attenuation without mass or defect. There is no intra or extrahepatic biliary ductal dilatation. The spleen is normal. The gallbladder is within normal limits. The pancreas is of normal contour and attenuation characteristics. There is no evidence of adrenal mass. Both kidneys demonstrate prompt and equal nephrograms. The kidneys are normal in size, shape and configuration. There is no evidence of renal or ureteral mass. No renal or ureteral calculi are identified. There is no hydroureter or hydronephrosis. There is a 5 mm cortical cyst present in the left kidney. No evidence for appendicitis. There is no bowel wall thickening. No evidence for small or large bowel obstruction. There are scattered diverticula present in the descending and sigmoid colon. There is marked inflammatory stranding adjacent to the distal descending colon consistent with acute diverticulitis. There is probable phlegmon formation but no evidence of abscess or free air. Very small fat containing umbilical hernia is present. There is no evidence of abdominal ascites or lymphadenopathy. The uterus although overall atrophic contains several small masses consistent with fibroids. The ovaries appear atrophic. There is no evidence of intrinsic or extrinsic bladder mass. There is no pelvic ascites or lymphadenopathy. Images of the lung bases show no evidence of pleural or parenchymal mass. There are no pleural effusions. Small hiatal hernia is seen. Scarring is seen in the right middle lobe and lingula. The bony structures are free of lytic or blastic lesions. IMPRESSION: 1. Evidence of acute diverticulitis involving the distal descending colon. 2. Very small fat containing umbilical hernia. 3. The uterus although overall atrophic contains several small masses consistent with fibroids. 4. Small hiatal hernia. Electronically signed on Jul 21, 2018 9:09:54 PM EST by: Jerome Coelho M.D., CORNEL Certified By [facility] [employer] [facility] Fellowship Trained MRI and CT Specialist 07/21/18 21:[address] Alcocer, who is aware and agrees with plan. Accepts pt in to his service. Pt will be admitted to [facility] for diverticulitis. Requests Dr. Jeffries on consult. - Lab Interpretations Lab Results: 07/21/18 18:12 07/21/18 18:12 Lab Results 07/21/18 18:12: Sodium 141, Chloride 106, Potassium 3.9, Carbon Dioxide 27, Anion Gap 12, BUN 6 L, Creatinine 0.6 L, Est GFR ( Amer) > 60, Est GFR (Non-Af Amer) > 60, Random Glucose 105, Calcium 9.4, Phosphorus 4.0, Magnesium 1.9, Total Bilirubin 0.7, AST 27, ALT 21, Alkaline Phosphatase 111, Total Protein 7.6, Albumin 4.1, Globulin 3.5, Albumin/Globulin Ratio 1.2, Lipase 51 07/21/18 18:12: pO2 52, VBG pH 7.39, VBG pCO2 50.0, VBG HCO3 30.3 H, VBG Total CO2 31.8 H, VBG O2 Sat (Calc) 90.4 H, VBG Base Excess 4.2 H, VBG Potassium 3.8, Sodium 140.0, Chloride 105.0, Glucose 105, Lactate 1.2, FiO2 21.0, Venous Blood Potassium 3.8 07/21/18 18:12: WBC 11.7 H, RBC 4.75, Hgb 14.1, Hct 41.2, MCV 86.7, MCH 29.7, MCHC 34.2, RDW 13.6, Plt Count 282, MPV 9.3, Gran % 79.0 H, Lymph % (Auto) 12.6 L, [place] % (Auto) 7.5 H, Eos % (Auto) 0.7 L, Baso % (Auto) 0.2, Gran # 9.24 H, Lymph # (Auto) 1.5, [place] # (Auto) 0.9 H, Eos # (Auto) 0.1, Baso # (Auto) 0.02 - RAD Interpretation Radiology Orders: 07/21/18 17:37 ABD & PELVIS IV CONTRAST ONLY [CT] Stat - Medication Orders Current Medication Orders: Sodium Chloride (Sodium Chloride 0.9%) 500 mls @ 999 mls/hr IV .Q31M STA Stop: 07/21/18 21:24 Ketorolac Tromethamine (Toradol) 30 mg IVP STAT STA Stop: 07/21/18 20:55 Discontinued Medications Morphine Sulfate (Morphine) 4 mg IVP STAT STA Stop: 07/21/18 17:39 Last Admin: 07/21/18 18:16 Dose: 4 mg MAR Pain Assessment Document 07/21/18 18:16 OCS (Rec: 07/21/18 18:17 OCS [id number]) Pain Reassessment Is this a pain reassessment? No Sleep Is patient sleeping during reassessment? No Presence of Pain Presence of Pain Yes Pain Scale Used Protocol: PSCALES Pain Scale Used Numeric Location Left, Right or Bilateral Bilateral Pain Location Body Site Abdomen Description Description Constant Aggravating Factors ADL's IVP Administration Document 07/21/18 18:16 OCS (Rec: 07/21/18 18:17 [id number] Charges for Administration # of IVP Administrations 1 Disposition/Present on Arrival - Present on Arrival Any Indicators Present on Arrival: No History of DVT/PE: No History of Uncontrolled Diabetes: No Urinary Catheter: No History of Decub. Ulcer: No History Surgical Site Infection Following: None - Disposition Have Diagnosis and Disposition been Completed?: Yes Diagnosis: Diverticulitis Disposition: HOSPITALIZED Disposition Time: 21:33 Patient Plan: Admission Patient Problems: Current Active Problems Problem Status Onset Diverticulitis Acute Condition: STABLE Forms: [employer] ([place])
[2018-07-21 21:22] LABS: URINE BILIRUBIN NEGATIVE (NEGATIVE); URINE BLOOD TRACE-INTACT (NEGATIVE); URINE GLUCOSE (UA) NEGATIVE (NEGATIVE); URINE LEUKOCYTE ESTERASE NEGATIVE Leu/uL (NEGATIVE); URINE PROTEIN NEGATIVE mg/dL (<30 mg/dL); URINE UROBILINOGEN 0.2 E.U./dL (<1 E.U./dL)
[2018-07-21 21:32] LABS: URINE APPEARANCE CLEAR (CLEAR); URINE COLOR YELLOW (YELLOW)
[2018-07-21] MEDS ORDERED: cefTRIAXone 1 gm 1 GM/100 ML BAG IV STA (21:34)
[2018-07-21] MEDS ORDERED: metroNIDAZOLE IV 500 mg/100 ml 500 MG/100 ML BAG IVPB STA (21:35)
[2018-07-21 21:42] LABS: URINE WBC 0 - 2 /hpf (0-6)
[2018-07-21 21:43] LABS: URINE BACTERIA FEW (NEG)
[2018-07-21] MEDS ORDERED: Sodium Chloride 0.9% 1,000 ML IV STA (21:50)
[2018-07-22 00:49] VITALS: BMI 31.1
[2018-07-22] MEDS: Levothyroxine 75 MCG TAB PO SCH (05:03)
[2018-07-22 07:01] LABS: HEMOGLOBIN 12.9 g/dL (12.0-16.0); MEAN CELL VOLUME 87.5 fl (80.0-105.0); MEAN CORPUSCULAR HEMOGLOBIN 29.4 pg (25.0-35.0); MEAN CORPUSCULAR HGB CONC 33.6 g/dl (31.0-37.0); MEAN PLATELET VOLUME 9.5 fl (7.0-11.0); RBC 4.39 10^6/uL (3.5-6.1); RED CELL DISTRIBUTION WIDTH 13.7 % (11.5-14.5); WHITE BLOOD COUNT 9.1 10^3/uL (4.5-11.0)
[2018-07-22 07:16] LABS: ALB/GLOB RATIO 1.1 (1.1-1.8); ALBUMIN 3.4 g/dL (3.0-4.8); ALT/SGPT 23 U/L (7-56); AST/SGOT 25 U/L (14-36); BLOOD UREA NITROGEN 6 mg/dL (7-21); CALCIUM 8.8 mg/dL (8.4-10.5); GFR NON-AFRICAN AMERICAN > 60
[2018-07-22] MEDS ORDERED: Morphine 5 MG/ML SYRINGE IVP PRN (08:18)
[2018-07-22] MEDS ORDERED: Sodium Chloride 0.9% 1,000 ML IV SCH (08:30)
[2018-07-22] MEDS: Morphine 2 mg/ml ISec IVP PRN ×2 (08:36→22:07)
--- NOTE | 2018-07-22 09:11 | CP.PCM.CON ---
<Clementine Hewitt - Last Filed: 07/22/18 10:10> History of Present Illness - History of Present Illness History of Present Illness: Gastroenterology Fellow/PGY6 Consult Note 58 year old female with PMH of Hypothyroidism, MDD, and Anxiety presenting with abdominal pain and diarrhea. Patient notes onset of right sided sharp, constant abdominal pain three weeks ago. Associated three watery stools daily. She states she completed Cipro/Flagyl for two weeks from outside provider with unchanged sy mptoms and development of left lower abdominal pain with associated fever. Denies nausea, vomiting, hematemesis, constipation, melena, hematochezia, sick contacts, or recent travel/ prior antibiotics before recent antibiotic course. Endorses prior EGD and colonoscopy at least five years ago showing PUD and normal colon without polyps. 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, 6- pack beer weeklyx 20 years Surgical History- none Review of Systems - Review of Systems Review of Systems: 12-point review of systems negative except for as above Past Patient History - Infectious Disease Hx of Infectious Diseases: None - Past Social History Smoking Status: Never Smoked - CARDIAC Hx Cardiac Disorders: Yes - PULMONARY Hx Asthma: Yes Hx Bronchitis: Yes Hx Sleep Apnea: Yes - NEUROLOGICAL Hx Dizziness: Yes - HEENT Hx HEENT Problems: No - RENAL Hx Chronic Kidney Disease: No - ENDOCRINE/METABOLIC Hx Hypothyroidism: Yes - HEMATOLOGICAL/ONCOLOGICAL Hx Blood Disorders: No Other/Comment: elevated LFT's - INTEGUMENTARY Hx Dermatological Problems: No - MUSCULOSKELETAL/RHEUMATOLOGICAL Hx Arthritis: Yes Hx Back Pain: Yes Hx Falls: No - GASTROINTESTINAL Hx Gastrointestinal Disorders: No Hx Gastroesophageal Reflux: Yes - GENITOURINARY/GYNECOLOGICAL Hx Genitourinary Disorders: No - PSYCHIATRIC Hx Anxiety: Yes Hx Depression: Yes Other/Comment: Past suicide attempt 3 years ago by attempt to overdose - SURGICAL HISTORY Hx Surgeries: No - ANESTHESIA Hx Anesthesia: No Meds Allergies/Adverse Reactions: Allergies Allergy/AdvReac Type Severity Reaction Status Date / Time FISH Allergy ANAPHYLAXIS Verified 12/03/16 15:57 - Medications Medications: Current Medications Sodium Chloride (Sodium Chloride 0.9%) 1,000 mls @ 50 mls/hr IV .Q20H [facility] Stop: 07/24/18 00:29 Levothyroxine Sodium (Synthroid) 75 mcg PO 0600 [facility] Last Admin: 07/22/18 05:03 Dose: 75 mcg Morphine Sulfate (Morphine) 2 mg IVP Q6H PRN PRN Reason: Pain, moderate (4-7) Last Admin: 07/22/18 08:36 Dose: 2 mg Venlafaxine HCl (Effexor Xr) 75 mg PO DAILY [facility] Physical Exam - Constitutional Appears: Non-toxic, No Acute Distress - Head Exam Head Exam: ATRAUMATIC, NORMOCEPHALIC - Eye Exam Eye Exam: EOMI, PERRL. absent: Scleral icterus Pupil Exam: PERRL. absent: Miosis, Mydriatic - ENT Exam ENT Exam: Mucous Membranes Moist, Normal Oropharynx - Neck Exam Neck exam: Positive for: Normal Inspection - Respiratory Exam Respiratory Exam: Clear to Auscultation Bilateral. absent: Rales, Rhonchi, Wheezes - Cardiovascular Exam Cardiovascular Exam: RRR, +S1, +S2. absent: Gallop, Rubs - GI/Abdominal Exam GI & Abdominal Exam: Distended, Guarding, Rebound, Rigid, Soft, Tenderness. absent: Firm, Organomegaly Additional comments: hypertympanic, rebound tenderness, severe pain to minimal palpation - Extremities Exam Extremities exam: Positive for: normal inspection. Negative for: pedal edema - Neurological Exam Neurological exam: Alert - Psychiatric Exam Psychiatric exam: Anxious - Skin Skin Exam: Dry, Intact, Normal Color, Warm Results - Vital Signs Recent Vital Signs: Last Vital Signs Temp 98 F 07/22/18 06:00 Pulse 78 07/22/18 06:00 Resp 18 07/22/18 06:00 BP 130/83 07/22/18 06:00 Pulse Ox 96 07/22/18 06:00 - Labs Result Diagrams: 07/22/18 06:30 07/22/18 06:30 Labs: Laboratory Results - last 24 hr 07/21/18 07/21/18 07/21/18 18:12 18:12 18:12 WBC 11.7 H RBC 4.75 Hgb 14.1 Hct 41.2 MCV 86.7 MCH 29.7 MCHC 34.2 RDW 13.6 Plt Count 282 MPV 9.3 Gran % 79.0 H Lymph % (Auto) 12.6 L [place] % (Auto) 7.5 H Eos % (Auto) 0.7 L Baso % (Auto) 0.2 Gran # 9.24 H Lymph # (Auto) 1.5 [place] # (Auto) 0.9 H Eos # (Auto) 0.1 Baso # (Auto) 0.02 pO2 52 VBG pH 7.39 VBG pCO2 50.0 VBG HCO3 30.3 H VBG Total CO2 31.8 H VBG O2 Sat (Calc) 90.4 H VBG Base Excess 4.2 H VBG Potassium 3.8 Sodium 140.0 141 Chloride 105.0 106 Glucose 105 Lactate 1.2 FiO2 21.0 Potassium 3.9 Carbon Dioxide 27 Anion Gap 12 BUN 6 L Creatinine 0.6 L Est GFR ( Amer) > 60 Est GFR (Non-Af Amer) > 60 Random Glucose 105 Calcium 9.4 Phosphorus 4.0 Magnesium 1.9 Total Bilirubin 0.7 AST 27 ALT 21 Alkaline Phosphatase 111 Total Protein 7.6 Albumin 4.1 Globulin 3.5 Albumin/Globulin Ratio 1.2 Lipase 51 Venous Blood Potassium 3.8 Urine Color Urine Appearance Urine pH Ur Specific [place] Urine Protein Urine Glucose (UA) Urine Ketones Urine Blood Urine Nitrate Urine Bilirubin Urine Urobilinogen Ur Leukocyte Esterase Urine RBC Urine WBC Ur Epithelial Cells Urine Bacteria 07/21/18 07/22/18 07/22/18 21:10 06:30 06:30 WBC 9.1 D RBC 4.39 Hgb 12.9 Hct 38.4 MCV 87.5 MCH 29.4 MCHC 33.6 RDW 13.7 Plt Count 246 MPV 9.5 Gran % Lymph % (Auto) [place] % (Auto) Eos % (Auto) Baso % (Auto) Gran # Lymph # (Auto) [place] # (Auto) Eos # (Auto) Baso # (Auto) pO2 VBG pH VBG pCO2 VBG HCO3 VBG Total CO2 VBG O2 Sat (Calc) VBG Base Excess VBG Potassium Sodium 142 Chloride 109 H Glucose Lactate FiO2 Potassium 3.8 Carbon Dioxide 27 Anion Gap 10 BUN 6 L Creatinine 0.7 Est GFR ( Amer) > 60 Est GFR (Non-Af Amer) > 60 Random Glucose 106 Calcium 8.8 Phosphorus Magnesium Total Bilirubin 0.5 AST 25 ALT 23 Alkaline Phosphatase 96 Total Protein 6.6 Albumin 3.4 Globulin 3.2 Albumin/Globulin Ratio 1.1 Lipase Venous Blood Potassium Urine Color Yellow Urine Appearance Clear Urine pH 6.0 Ur Specific [place] <= 1.005 Urine Protein Negative Urine Glucose (UA) Negative Urine Ketones Negative Urine Blood Trace-intact H Urine Nitrate Negative Urine Bilirubin Negative Urine Urobilinogen 0.2 Ur Leukocyte Esterase Negative Urine RBC 2 - 5 Urine WBC 0 - 2 Ur Epithelial Cells 6 - 8 Urine Bacteria Few Assessment & Plan - Assessment and Plan (Free Text) Assessment: 58 year old female with PMH of Hypothyroidism, MDD, and Anxiety presenting with abdominal pain and diarrhea. Active treatment of intractable abdominal pain. Endorses prior EGD and colonoscopy at least five years ago showing PUD and normal colon without polyps. Plan: -07/21 CT A/P -descending diverticulitis -severe pain, rebound tenderness -stat CT A/P without contrast ordered to evaluate for perforation -NPO -Surgery consulted -received cefriaxone/flagyl yesterday -if perforation confirmed- change to broad-spectrum coverage -supportive care- pain control, anti-emetics -further recommendations after CT A/P -close monitoring of clinical status <Deo Jeffries V - Last Filed: 07/22/18 23:50> Meds - Medications Medications: Current Medications Lactated Ringer's (Lactated Ringer's) 1,000 mls @ 110 mls/hr IV .Q9H6M [facility] Last Admin: 07/22/18 13:17 Dose: 110 mls/hr Piperacillin Sod/Tazobactam Sod (Zosyn 3.375 In Ns 100ml) 100 mls @ 25 mls/hr IVPB Q8 [facility]; Protocol Stop: 07/31/18 11:27 Last Admin: 07/22/18 22:05 Dose: 25 mls/hr Levothyroxine Sodium (Synthroid) 75 mcg PO 0600 [facility] Last Admin: 07/22/18 05:03 Dose: 75 mcg Morphine Sulfate (Morphine) 2 mg IVP Q6H PRN PRN Reason: Pain, moderate (4-7) Last Admin: 07/22/18 22:07 Dose: 2 mg Morphine Sulfate (Morphine) 4 mg IVP Q4H PRN PRN Reason: Pain, severe (8-10) Pantoprazole Sodium (Protonix Inj) 40 mg IVP DAILY [facility] Venlafaxine HCl (Effexor Xr) 75 mg PO DAILY [facility] Last Admin: 07/22/18 15:43 Dose: Not Given Results - Vital Signs Recent Vital Signs: Last Vital Signs Temp 98.3 F 07/22/18 22:34 Pulse 83 07/22/18 22:34 Resp 20 07/22/18 22:34 BP 138/82 07/22/18 22:34 Pulse Ox 96 07/22/18 22:34 - Labs Result Diagrams: 07/22/18 06:30 07/22/18 06:30 Labs: Laboratory Results - last 24 hr 07/22/18 07/22/18 06:30 06:30 WBC 9.1 D RBC 4.39 Hgb 12.9 Hct 38.4 MCV 87.5 MCH 29.4 MCHC 33.6 RDW 13.7 Plt Count 246 MPV 9.5 Sodium 142 Potassium 3.8 Chloride 109 H Carbon Dioxide 27 Anion Gap 10 BUN 6 L Creatinine 0.7 Est GFR ( Amer) > 60 Est GFR (Non-Af Amer) > 60 Random Glucose 106 Calcium 8.8 Total Bilirubin 0.5 AST 25 ALT 23 Alkaline Phosphatase 96 Total Protein 6.6 Albumin 3.4 Globulin 3.2 Albumin/Globulin Ratio 1.1 Attending/Attestation - Attestation I have personally seen and examined this patient.: Yes I have fully participated in the care of the patient.: Yes I have reviewed all pertinent clinical information: Yes Notes (Text): This is an addendum to GI consult report dictated by the GI Fellow.The patient was seen and examined earlier. Medical records, lab studies, imagings were rev iewed. Last 24 hours events reviewed. Agreed with the above treatment plan as outlined in GI Fellow 's notes with the addition of the following 07/22/18 23:50
--- NOTE | 2018-07-22 09:38 | CARD ---
APPROVED REPORT Date of service: 07/21/2018 EKG Measurement Heart [id number] <Conclusion> Normal sinus rhythm Normal ECG No change except lower voltage lateral precordial leads
--- NOTE | 2018-07-22 09:45 | CT ---
Date of service: 07/21/2018 PROCEDURE: CT Abdomen and Pelvis with contrast HISTORY: LLQ abdominal pain COMPARISON: None. TECHNIQUE: Contrast dose: 100 cc of Omni 350 Radiation dose: Total exam DLP = 769.57 mGy-cm. This CT exam was performed using one or more of the following dose reduction techniques: Automated exposure control, adjustment of the mA and/or kV according to patient size, and/or use of iterative reconstruction technique. FINDINGS: LOWER THORAX: Unremarkable. LIVER: Unremarkable. No gross lesion or ductal dilatation. GALLBLADDER AND BILE DUCTS: Unremarkable. PANCREAS: Unremarkable. No gross lesion or ductal dilatation. SPLEEN: Unremarkable. ADRENALS: Unremarkable. No mass. KIDNEYS AND URETERS: Unremarkable. No hydronephrosis. No solid mass. VASCULATURE: Unremarkable. No aortic aneurysm. No aortic atherosclerotic calcification or mural plaque present. BOWEL: There is acute diverticulitis in the descending colon. There is mural thickening and mesenteric inflammation APPENDIX: Normal appendix. PERITONEUM: Unremarkable. No free fluid. No free air. LYMPH NODES: Unremarkable. No enlarged lymph nodes. BLADDER: Unremarkable. REPRODUCTIVE: Uterine fibroids BONES: No acute fracture. OTHER FINDINGS: The report concurs with the preliminary [facility] report IMPRESSION: Acute diverticulitis in the descending colon
[2018-07-22] MEDS ORDERED: Morphine 4 mg/ml ISec IVP STA (10:40)
[2018-07-22] MEDS ORDERED: Morphine 2 mg/ml ISec IVP STA (10:47)
--- NOTE | 2018-07-22 11:03 | CP.PCM.CON ---
History of Present Illness - History of Present Illness History of Present Illness: Surgery Consult for Dr. To CC: abdominal pain x 3 weeks HPI: 58 year old female with PMHx of hypothyroidism, major depressive disorder, and anxiety presented to the ED 07/21, yesterday, for 10/10 constant LLQ abdominal pain. Patient was previously diagnosed with diverticulitis and was on antibiotic treatment for two weeks starting three weeks ago. She states they were two different antibiotics given to her and she took them as instructed. However, pain from RUQ after a week also radiated to the LLQ and persisted. Her fever persisted too, though patient does not know her Tmax; she just states that the RN told her she has a fever yesterday (though no records show). Patient still feels subjective fever. Of note, she has been experiencing diarrhea for the past week a few times a day and watery. Denies hematochezia. Also endorses headache, dizziness, appetite loss, and pain with any slight movement of her abdomen or body. Patient has not eaten for 3 days and states despite that she is not hungry, just thirsty. Pain is not affected by food intake. ROS: as per HPI PMH: hypothyroidism, MDD, anxiety PSH: denies FH: mother and father both with diverticulitis but never had surgery for it. Denies any other known family history. Home meds: synthroid 75 mcg qAM, vyvanse 70 mg daily, effexor 75 mg daily, and ambien 5 mg qhs allergies: NKDA Review of Systems - Review of Systems Systems not reviewed;Unavailable: Acuity of Condition - Constitutional Constitutional: As Per HPI Past Patient History - Infectious Disease Hx of Infectious Diseases: None - Past Social History Smoking Status: Never Smoked - CARDIAC Hx Cardiac Disorders: Yes - PULMONARY Hx Asthma: Yes Hx Bronchitis: Yes Hx Sleep Apnea: Yes - NEUROLOGICAL Hx Dizziness: Yes - HEENT Hx HEENT Problems: No - RENAL Hx Chronic Kidney Disease: No - ENDOCRINE/METABOLIC Hx Hypothyroidism: Yes - HEMATOLOGICAL/ONCOLOGICAL Hx Blood Disorders: No Other/Comment: elevated LFT's - INTEGUMENTARY Hx Dermatological Problems: No - MUSCULOSKELETAL/RHEUMATOLOGICAL Hx Arthritis: Yes Hx Back Pain: Yes Hx Falls: No - GASTROINTESTINAL Hx Gastrointestinal Disorders: No Hx Gastroesophageal Reflux: Yes - GENITOURINARY/GYNECOLOGICAL Hx Genitourinary Disorders: No - PSYCHIATRIC Hx Anxiety: Yes Hx Depression: Yes Other/Comment: Past suicide attempt 3 years ago by attempt to overdose - SURGICAL HISTORY Hx Surgeries: No - ANESTHESIA Hx Anesthesia: No Meds Allergies/Adverse Reactions: Allergies Allergy/AdvReac Type Severity Reaction Status Date / Time FISH Allergy ANAPHYLAXIS Verified 12/03/16 15:57 - Medications Medications: Current Medications Sodium Chloride (Sodium Chloride 0.9%) 1,000 mls @ 50 mls/hr IV .Q20H [facility] Stop: 07/24/18 00:29 Levothyroxine Sodium (Synthroid) 75 mcg PO 06 [facility] Last Admin: 07/22/18 05:03 Dose: 75 mcg Morphine Sulfate (Morphine) 2 mg IVP Q6H PRN PRN Reason: Pain, moderate (4-7) Last Admin: 07/22/18 08:36 Dose: 2 mg Venlafaxine HCl (Effexor Xr) 75 mg PO DAILY [facility] Physical Exam - Constitutional Additional comments: Lying uncomfortably in bed - Head Exam Head Exam: ATRAUMATIC, NORMAL INSPECTION - Eye Exam Eye Exam: EOMI, Normal appearance. absent: Scleral icterus - ENT Exam ENT Exam: Mucous Membranes Moist, Normal Exam - Neck Exam Neck exam: Positive for: Normal Inspection. Negative for: Lymphadenopathy, Tenderness - Respiratory Exam Respiratory Exam: Clear to Auscultation Bilateral, NORMAL BREATHING PATTERN - Cardiovascular Exam Cardiovascular Exam: REGULAR RHYTHM - GI/Abdominal Exam GI & Abdominal Exam: Distended, Firm, Hyperactive Bowel Sounds, Tenderness (Tenderness to light palpation of RUQ and LLQ) Additional comments: +Rovsing's sign - Extremities Exam Extremities exam: Positive for: normal capillary refill, normal inspection Additional comments: strong peripheral pulses - Neurological Exam Neurological exam: Alert, Oriented x3 - Psychiatric Exam Psychiatric exam: Anxious - Skin Skin Exam: Dry, Intact, Normal Color, Warm Results - Vital Signs Recent Vital Signs: Last Vital Signs Temp 98 F 07/22/18 06:00 Pulse 78 07/22/18 06:00 Resp 18 07/22/18 06:00 BP 130/83 07/22/18 06:00 Pulse Ox 96 07/22/18 06:00 - Labs Result Diagrams: 07/22/18 06:30 07/22/18 06:30 Labs: Laboratory Results - last 24 hr 07/21/18 07/21/18 07/21/18 18:12 18:12 18:12 WBC 11.7 H RBC 4.75 Hgb 14.1 Hct 41.2 MCV 86.7 MCH 29.7 MCHC 34.2 RDW 13.6 Plt Count 282 MPV 9.3 Gran % 79.0 H Lymph % (Auto) 12.[address] [place] % (Auto) 7.5 H Eos % (Auto) 0.7 L Baso % (Auto) 0.2 Gran # 9.24 H Lymph # (Auto) 1.5 [place] # (Auto) 0.9 H Eos # (Auto) 0.1 Baso # (Auto) 0.02 pO2 52 VBG pH 7.39 VBG pCO2 50.0 VBG HCO3 30.3 H VBG Total CO2 31.8 H VBG O2 Sat (Calc) 90.4 H VBG Base Excess 4.2 H VBG Potassium 3.8 Sodium 140.0 141 Chloride 105.0 106 Glucose 105 Lactate 1.2 FiO2 21.0 Potassium 3.9 Carbon Dioxide 27 Anion Gap 12 BUN 6 L Creatinine 0.6 L Est GFR ( Amer) > 60 Est GFR (Non-Af Amer) > 60 Random Glucose 105 Calcium 9.4 Phosphorus 4.0 Magnesium 1.9 Total Bilirubin 0.7 AST 27 ALT 21 Alkaline Phosphatase 111 Total Protein 7.6 Albumin 4.1 Globulin 3.5 Albumin/Globulin Ratio 1.2 Lipase 51 Venous Blood Potassium 3.8 Urine Color Urine Appearance Urine pH Ur Specific [place] Urine Protein Urine Glucose (UA) Urine Ketones Urine Blood Urine Nitrate Urine Bilirubin Urine Urobilinogen Ur Leukocyte Esterase Urine RBC Urine WBC Ur Epithelial Cells Urine Bacteria 07/21/18 07/22/18 07/22/18 21:10 06:30 06:30 WBC 9.1 D RBC 4.39 Hgb 12.9 Hct 38.4 MCV 87.5 MCH 29.4 MCHC 33.6 RDW 13.7 Plt Count 246 MPV 9.5 Gran % Lymph % (Auto) [place] % (Auto) Eos % (Auto) Baso % (Auto) Gran # Lymph # (Auto) [place] # (Auto) Eos # (Auto) Baso # (Auto) pO2 VBG pH VBG pCO2 VBG HCO3 VBG Total CO2 VBG O2 Sat (Calc) VBG Base Excess VBG Potassium Sodium 142 Chloride 109 H Glucose Lactate FiO2 Potassium 3.8 Carbon Dioxide 27 Anion Gap 10 BUN 6 L Creatinine 0.7 Est GFR ( Amer) > 60 Est GFR (Non-Af Amer) > 60 Random Glucose 106 Calcium 8.8 Phosphorus Magnesium Total Bilirubin 0.5 AST 25 ALT 23 Alkaline Phosphatase 96 Total Protein 6.6 Albumin 3.4 Globulin 3.2 Albumin/Globulin Ratio 1.1 Lipase Venous Blood Potassium Urine Color Yellow Urine Appearance Clear Urine pH 6.0 Ur Specific [place] <= 1.005 Urine Protein Negative Urine Glucose (UA) Negative Urine Ketones Negative Urine Blood Trace-intact H Urine Nitrate Negative Urine Bilirubin Negative Urine Urobilinogen 0.2 Ur Leukocyte Esterase Negative Urine RBC 2 - 5 Urine WBC 0 - 2 Ur Epithelial Cells 6 - 8 Urine Bacteria Few Assessment & Plan - Assessment and Plan (Free Text) Assessment: 58 year old female with admitted with diverticulitis. Surgery consulted for failed outpatient treatment. -CT AP 07/21: distal descending colon diverticulitis. Official read of CT w/o contrast pending on 07/22, today. -continue with NPO, mIVF, IV abx, and pain management (increased pain meds ordered) -serial abdominal exams -encourage out of bed Case discussed with Dr. To and surgery team. Thank you for the consult. Lisa White DO PGY1
[2018-07-22] MEDS ORDERED: Morphine 4 mg/ml ISec IVP PRN (11:17)
--- NOTE | 2018-07-22 11:48 | CT ---
Date of service: 07/22/2018 PROCEDURE: CT Abdomen and Pelvis without intravenous contrast HISTORY: diffuse abdominal pain, evaluate for perforation COMPARISON: Abdomen pelvis CT with contrast 07/21/2018. TECHNIQUE: Helical CT of the abdomen and pelvis was performed without oral or intravenous contrast as per referring physician request. Coronal and sagittal reformats were generated. Contrast dose: None Radiation dose: Total exam DLP = 942.75 mGy-cm. This CT exam was performed using one or more of the following dose reduction techniques: Automated exposure control, adjustment of the mA and/or kV according to patient size, and/or use of iterative reconstruction technique. FINDINGS: LOWER THORAX: Unremarkable. LIVER: Unremarkable. No gross lesion or ductal dilatation. GALLBLADDER AND BILE DUCTS: Unremarkable. PANCREAS: Unremarkable. No gross lesion or ductal dilatation. SPLEEN: Unremarkable. ADRENALS: Unremarkable. No mass. KIDNEYS AND URETERS: Unremarkable. No hydronephrosis. No solid mass. VASCULATURE: Unremarkable. No aortic aneurysm. No aortic atherosclerotic calcification or mural plaque present. BOWEL: Stable diverticulosis pattern remains at the distal descending colon. No CT pattern of perforation appreciable at this time. APPENDIX: Unremarkable. Normal appendix. PERITONEUM: No definite free intraperitoneal gas, abscess or ascites appreciable at this time the suggest bowel perforation. LYMPH NODES: Unremarkable. No enlarged lymph nodes. BLADDER: Unremarkable. REPRODUCTIVE: Unremarkable. BONES: No acute fracture. OTHER FINDINGS: None. IMPRESSION: Stable distal descending colonic diverticulitis without overt CT pattern of perforation appreciable at this time. Diminished sensitivity overall due to lack of contrast agents in this unenhanced examination.
[2018-07-22] MEDS: Lactated Ringer's 1,000 ML IV SCH (13:17)
[2018-07-22] MEDS: Piperacillin/Tazobact 3.375 gm 100 ML IVPB SCH ×3 (13:28→22:05)
[2018-07-22] MEDS ORDERED: metroNIDAZOLE IV 500 mg/100 ml 500 MG/100 ML BAG IVPB SCH (14:00)
[2018-07-22] MEDS: Venlafaxine 75 mg ER Cap PO SCH (15:43)
--- NOTE | 2018-07-22 19:30 | CP.PCM.HP ---
History of Present Illness - History of Present Illness History of Present Illness: H&P for Dr. Alcocer service CC: Left lower abdominal pain x3 weeks This is a 58 yo F with PMH of Hypothyroidism, Asthma, MDD (with prior suicide attempt), and Anxiety who sent [place] [facility] [place]D for persisting left lower quadrant abdominal pain x3 weeks. As per patient, she went to another doctor when the pain started 3 weeks prior, and was started on a 3-week course of PO Cipro and Flagyl, which she only took for 2 weeks. Reports intermittent watery stools during these 3 weeks, but denies watery diarrhea >3 times per day, melena, or black stools. Denies any improvement in symptoms with the antibiotics. Yesterday, went to PMD's office (Dr. Alcocer) due to persistence of pain, and was instructed to present to the ED. CT imaging obtained in the ED concerning for distal descending colon diverticulitis. Patient started on IV antibiotics and fluids, GI consulted. On exam this AM, notable for diffuse but L>R abdominal tenderness. She admits to nausea but denies emesis. Not acutely distended, some guarding, no rebound t enderness. Borderline hyperactive bowel sounds appreciated. Pt requesting something to drink. 12 system ROS reviewed and negative except as above. 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 Alcocer Present on Admission - Present on Admission Any Indicators Present on Admission: No History of DVT/PE: No History of Uncontrolled Diabetes: No Review of Systems - Review of Systems All systems: reviewed and no additional remarkable complaints except (as per HPI) Past Patient History - Infectious Disease Hx of Infectious Diseases: None - Past Social History Smoking Status: Never Smoked - CARDIAC Hx Cardiac Disorders: Yes - PULMONARY Hx Asthma: Yes Hx Bronchitis: Yes Hx Sleep Apnea: Yes - NEUROLOGICAL Hx Dizziness: Yes - HEENT Hx HEENT Problems: No - RENAL Hx Chronic Kidney Disease: No - ENDOCRINE/METABOLIC Hx Hypothyroidism: Yes - HEMATOLOGICAL/ONCOLOGICAL Hx Blood Disorders: No Other/Comment: elevated LFT's - INTEGUMENTARY Hx Dermatological Problems: No - MUSCULOSKELETAL/RHEUMATOLOGICAL Hx Arthritis: Yes Hx Back Pain: Yes Hx Falls: No - GASTROINTESTINAL Hx Gastrointestinal Disorders: No Hx Gastroesophageal Reflux: Yes - GENITOURINARY/GYNECOLOGICAL Hx Genitourinary Disorders: No - PSYCHIATRIC Hx Anxiety: Yes Hx Depression: Yes Other/Comment: Past suicide attempt 3 years ago by attempt to overdose - SURGICAL HISTORY Hx Surgeries: No - ANESTHESIA Hx Anesthesia: No Meds Allergies/Adverse Reactions: Allergies Allergy/AdvReac Type Severity Reaction Status Date / Time FISH Allergy ANAPHYLAXIS Verified 12/03/16 15:57 Physical Exam - Constitutional Appears: Non-toxic, No Acute Distress - Head Exam Head Exam: ATRAUMATIC, NORMAL INSPECTION, NORMOCEPHALIC - Eye Exam Eye Exam: EOMI, Normal appearance. absent: Conjunctival injection, Scleral icterus Pupil Exam: absent: Irregular, Unequal - ENT Exam ENT Exam: Mucous Membranes Dry - Neck Exam Neck exam: Positive for: Full Rom. Negative for: Lymphadenopathy - Respiratory Exam Respiratory Exam: Clear to Auscultation Bilateral, NORMAL BREATHING PATTERN. absent: Accessory Muscle Use, Chest Wall Tenderness, Decreased Breath Sounds, Rales, Rhonchi, Wheezes - Cardiovascular Exam Cardiovascular Exam: REGULAR RHYTHM, RRR, +S1, +S2. absent: Bradycardia, Tachycardia, Irregular Rhythm, JVD, +S4 - GI/Abdominal Exam GI & Abdominal Exam: Guarding, Normal Bowel Sounds, Soft, Tenderness (diffuse abd tenderness, L>R). absent: Diminished Bowel Sounds, Distended, Firm, Hyperactive Bowel Sounds, Hypoactive Bowel Sounds, Rebound, Rigid - Extremities Exam Extremities exam: Positive for: normal capillary refill, normal inspection, pedal pulses present. Negative for: calf tenderness, pedal edema, tenderness - Back Exam Back exam: absent: CVA tenderness (L), CVA tenderness (R) - Neurological Exam Additional comments: awake and alert, following all commands, moving all extremities - Psychiatric Exam Psychiatric exam: Anxious, Normal Affect - Skin Skin Exam: Dry, Intact, Normal Color, Warm Results - Vital Signs Recent Vital Signs: Last Vital Signs Temp 98.3 F 07/22/18 14:00 Pulse 77 07/22/18 14:00 Resp 18 07/22/18 14:00 BP 110/80 07/22/18 14:00 Pulse Ox 98 07/22/18 14:00 - Labs Result Diagrams: 07/22/18 06:30 07/22/18 06:30 Labs: Laboratory Results - last 24 hr 07/21/18 07/22/18 07/22/18 21:10 06:30 06:30 WBC 9.1 D RBC 4.39 Hgb 12.9 Hct 38.4 MCV 87.5 MCH 29.4 MCHC 33.6 RDW 13.7 Plt Count 246 MPV 9.5 Sodium 142 Potassium 3.8 Chloride 109 H Carbon Dioxide 27 Anion Gap 10 BUN 6 L Creatinine 0.7 Est GFR ( Amer) > 60 Est GFR (Non-Af Amer) > 60 Random Glucose 106 Calcium 8.8 Total Bilirubin 0.5 AST 25 ALT 23 Alkaline Phosphatase 96 Total Protein 6.6 Albumin 3.4 Globulin 3.2 Albumin/Globulin Ratio 1.1 Urine Color Yellow Urine Appearance Clear Urine pH 6.0 Ur Specific [place] <= 1.005 Urine Protein Negative Urine Glucose (UA) Negative Urine Ketones Negative Urine Blood Trace-intact H Urine Nitrate Negative Urine Bilirubin Negative Urine Urobilinogen 0.2 Ur Leukocyte Esterase Negative Urine RBC 2 - 5 Urine WBC 0 - 2 Ur Epithelial Cells 6 - 8 Urine Bacteria Few Assessment & Plan - Assessment and Plan (Free Text) Assessment: This is a 58 yo F with PMH of Hypothyroidism, Asthma, MDD (with prior suicide attempt), and Anxiety who sent to [facility] [place] by PMD for persisting left lower quadrant abdominal pain x3 weeks. She was admitted for persisting diverticulitis, likely failed outpatient antibiotic treatment. Plan: 1) Diffuse abdominal pain L>R Ddx: diverticulitis vs collitis vs anxiety, r/o perforation/abscess -patient initially reporting moderate but stable pain, but as per GI later became worse, concern for possible Perforation -Repeat CT abd/pelvis ordered -GI and Surgery consulted, appreciate their recs -ID consulted for failed outpatient abx regimen, appreciate their recs -blood and urine cx pending, f/u -morphine 2q6 IV PRN for pain control 2) Hypothyroid -continue home synthroid Dispo: Pending GI and Surgery recs, pending possible OR for resection Ppx: SCDs for DVT, Protonix for GI Reviewed and discussed with attending, Dr. Alcocer
--- NOTE | 2018-07-22 22:11 | CON ---
DATE: 07/22/2018 CHIEF COMPLAINT: Left-sided flank pain on and off for several weeks, worse last two days. HISTORY OF PRESENT ILLNESS: This is a 58-year-old female with past medical history significant for diverticulitis, anxiety, depression, hypothyroid disease, and GERD. The patient was admitted to the emergency room and was seen by Dr. Sharmila Eisenberg yesterday. The patient admitted with abdominal pain for three weeks, she has gotten worse. She was given two antibiotics as outpatient, did not know what antibiotics. She denied any dysuria or frequency. No chest pain, shortness of breath, or cough. She does have low-grade fevers and occasional chills. REVIEW OF SYSTEMS: A 14-point review of systems performed. PAST MEDICAL HISTORY: Significant for diverticulitis, anxiety, depression, hypothyroidism, GERD. PAST SURGICAL HISTORY: Noncontributory. ALLERGIES: THE PATIENT IS ALLERGIC TO FISH. MEDICATIONS: Medications a at home are noted. She is on Effexor, Synthroid, Protonix, and Seroquel. SOCIAL HISTORY: She is not a smoker. PHYSICAL EXAMINATION: GENERAL: The patient is in bed with significant discomfort. VITAL SIGNS: Temperature of 100, respiratory rate of 18, heart rate of 100, blood pressure is 112/68. EXAMINATION OF HEENT: Unremarkable. NECK: Supple. LUNGS: Decreased breath sounds. HEART: Normal S1 and S2. ABDOMEN EXAMINATION: Tender but no rebound, no guarding, and no masses. There is no CVA tenderness. LABORATORY DATA: Laboratory examination reveals a white count of 11,700, hemoglobin is 14 with platelets of 282 and 79% granulocytosis. ABGs are reviewed, pO2 of 52 and pH of 7.39. Chemistries are also noted. Urinalysis is unremarkable. The patient had a CT scan of the abdomen pelvis, which shows diverticulitis. ASSESSMENT AND PLAN: This is a 58-year-old female with hypothyroidism, depression, anxiety, diverticulitis, presenting after being on two antibiotics as outpatient, now with acute diverticulitis and failure to respond to antibiotics as outpatient. We will treat the patient with Zosyn. Pending griffith culture. The patient is for repeat CT. We will follow closely with you. Recommend human immunodeficiency virus testing because of the patient's age and we will follow. Kosta Henriquez MD
[2018-07-23] MEDS: Lactated Ringer's 1,000 ML IV SCH ×3 (01:25→17:54)
[2018-07-23] MEDS: Piperacillin/Tazobact 3.375 gm 100 ML IVPB SCH ×3 (05:35→22:32)
[2018-07-23] MEDS: Levothyroxine 75 MCG TAB PO SCH (05:35)
[2018-07-23 06:53] LABS: HEMOGLOBIN 12.4 g/dL (12.0-16.0); MEAN CELL VOLUME 87.6 fl (80.0-105.0); MEAN CORPUSCULAR HEMOGLOBIN 29.5 pg (25.0-35.0); MEAN CORPUSCULAR HGB CONC 33.6 g/dl (31.0-37.0); MEAN PLATELET VOLUME 9.7 fl (7.0-11.0); RBC 4.21 10^6/uL (3.5-6.1); RED CELL DISTRIBUTION WIDTH 13.4 % (11.5-14.5); WHITE BLOOD COUNT 6.7 10^3/uL (4.5-11.0)
[2018-07-23 07:40] LABS: BLOOD UREA NITROGEN 5 mg/dL (7-21); CALCIUM 8.7 mg/dL (8.4-10.5); GFR NON-AFRICAN AMERICAN > 60
[2018-07-23] MEDS ORDERED: Oxycodone/Acetaminophen 5/325 mg Tab PO PRN (08:36)
[2018-07-23] MEDS: Venlafaxine 75 mg ER Cap PO SCH (10:13)
--- NOTE | 2018-07-23 10:14 | CP.PCM.PN ---
<Carlton Calles - Last Filed: 07/23/18 19:13> Subjective - Date & Time of Evaluation Date of Evaluation: 07/23/18 Time of Evaluation: 07:10 - Subjective Subjective: Progress Note for Dr. Alcocer service Patient seen and examined at bedside. No acute events reported overnight. This AM, reports improved abdominal pain. Reports was told by Surgery team that she would be trialled on clear liquid diet (Surgery confirms). Denies diarrhea, emesis, shortness of breath. Objective - Vital Signs/Intake and Output Vital Signs (last 24 hours): Temp Pulse Resp BP Pulse Ox 98.1 F 71 18 116/67 94 L 07/23/18 06:00 07/23/18 06:00 07/23/18 06:00 07/23/18 06:00 07/23/18 06:00 Intake and Output: 07/23/18 07/23/18 06:59 18:59 Intake Total 550 Balance 550 - Medications Medications: Current Medications Alprazolam (Xanax) 0.5 mg PO HS PRN; Protocol PRN Reason: Insomnia Last Admin: 07/23/18 03:41 Dose: 0.5 mg Lactated Ringer's (Lactated Ringer's) 1,000 mls @ 110 mls/hr IV .Q9H6M [facility] Last Admin: 07/23/18 05:34 Dose: 110 mls/hr Piperacillin Sod/Tazobactam Sod (Zosyn 3.375 In Ns 100ml) 100 mls @ 25 mls/hr IVPB Q8 [facility]; Protocol Stop: 07/31/18 11:27 Last Admin: 07/23/18 05:35 Dose: 25 mls/hr Levothyroxine Sodium (Synthroid) 75 mcg PO 0600 [facility] Last Admin: 07/23/18 05:35 Dose: 75 mcg Morphine Sulfate (Morphine) 5 mg IVP Q4H PRN PRN Reason: Pain, severe (8-10) Oxycodone/Acetaminophen (Percocet 5/325 Mg Tab) 1 tab PO Q4H PRN PRN Reason: Pain, moderate (4-7) Stop: 07/26/18 08:37 Pantoprazole Sodium (Protonix Inj) 40 mg IVP DAILY [facility] Last Admin: 07/23/18 10:13 Dose: 40 mg Venlafaxine HCl (Effexor Xr) 75 mg PO DAILY [facility] Last Admin: 07/23/18 10:13 Dose: 75 mg - Labs Labs: 07/23/18 06:30 07/23/18 06:30 - Additional Findings Additional findings: - Constitutional Appears: Non-toxic, No Acute Distress - Head Exam Head Exam: ATRAUMATIC, NORMAL INSPECTION, NORMOCEPHALIC - Eye Exam Eye Exam: EOMI, Normal appearance. absent: Conjunctival injection, Scleral icterus Pupil Exam: absent: Irregular, Unequal - ENT Exam ENT Exam: Mucous Membranes Dry - Neck Exam Neck exam: Positive for: Full Rom. Negative for: Lymphadenopathy - Respiratory Exam Respiratory Exam: Clear to Auscultation Bilateral, NORMAL BREATHING PATTERN. absent: Accessory Muscle Use, Chest Wall Tenderness, Decreased Breath Sounds, Rales, Rhonchi, Wheezes - Cardiovascular Exam Cardiovascular Exam: REGULAR RHYTHM, RRR, +S1, +S2. absent: Bradycardia, Tachycardia, Irregular Rhythm, JVD, +S4 - GI/Abdominal Exam GI & Abdominal Exam: Guarding, Normal Bowel Sounds, Soft, Tenderness (e pigastric, left upper/lower quadrant, and left flank tenderness to palpation). absent: Diminished Bowel Sounds, Distended, Firm, Hyperactive Bowel Sounds, Hypoactive Bowel Sounds, Rebound, Rigid - Extremities Exam Extremities exam: Positive for: normal capillary refill, normal inspection, pedal pulses present. Negative for: calf tenderness, pedal edema, tenderness - Back Exam Back exam: absent: CVA tenderness (L), CVA tenderness (R) - Neurological Exam awake and alert, following all commands, moving all extremities - Psychiatric Exam Psychiatric exam: Normal Affect and Mood - Skin Skin Exam: Dry, Intact, Normal Color, Warm Assessment and Plan - Assessment and Plan (Free Text) Assessment: This is a 58 yo F with PMH of Hypothyroidism, Asthma, MDD (with prior suicide attempt), and Anxiety who [place] [facility] [place] for persisting left lower quadrant abdominal pain x3 weeks. She was admitted for persisting diverticulitis, likely failed outpatient antibiotic treatment. Advancing to clear liquid diet as per Surgery, will continue to monitor. Plan: 1) Diffuse abdominal pain L>R Ddx: diverticulitis vs collitis vs anxiety, -patient initially reporting moderate but stable pain, but as per GI later became worse, concern for possible Perforation -Repeat CT abd/pelvis ordered, negative for perf or abscess -GI and Surgery consulted, appreciate their recs Surgery: advance to clear liquid diet, continue pain control, serial abd exams GI: clinical management, continue IV abx, follow up stool studies -ID consulted for failed outpatient abx regimen, appreciate their recs; Zosyn for abx coverage, HIV testing, griffith-culture -blood cx x2 negative at 24 hrs, urine cx negative -pain control as per surgery recs 2) Hypothyroid -continue home synthroid Dispo: Trial CLD, serial abd exams, pending culture and stool study results Ppx: SCDs for DVT, Protonix for GI Reviewed and discussed with attending, Dr. Alcocer <Jason Alcocer - Last Filed: 07/23/18 20:41> Objective - Vital Signs/Intake and Output Vital Signs (last 24 hours): Temp Pulse Resp BP Pulse Ox 98 F 70 18 118/71 100 07/23/18 14:00 07/23/18 14:00 07/23/18 14:00 07/23/18 14:00 07/23/18 14:00 - Medications Medications: Current Medications Alprazolam (Xanax) 0.5 mg PO HS PRN; Protocol PRN Reason: Insomnia Last Admin: 07/23/18 03:41 Dose: 0.5 mg Piperacillin Sod/Tazobactam Sod (Zosyn 3.375 In Ns 100ml) 100 mls @ 25 mls/hr IVPB Q8 [facility]; Protocol Stop: 07/31/18 11:27 Last Admin: 07/23/18 14:40 Dose: 25 mls/hr Lactated Ringer's (Lactated Ringer's) 1,000 mls @ 83 mls/hr IV .Q12H3M [facility] Last Admin: 07/23/18 17:54 Dose: 83 mls/hr Levothyroxine Sodium (Synthroid) 75 mcg PO 0600 [facility] Last Admin: 07/23/18 05:35 Dose: 75 mcg Morphine Sulfate (Morphine) 5 mg IVP Q4H PRN PRN Reason: Pain, severe (8-10) Last Admin: 07/23/18 14:38 Dose: 5 mg Oxycodone/Acetaminophen (Percocet 5/325 Mg Tab) 1 tab PO Q4H PRN PRN Reason: Pain, moderate (4-7) Stop: 07/26/18 08:37 Pantoprazole Sodium (Protonix Inj) 40 mg IVP DAILY [facility] Last Admin: 07/23/18 10:13 Dose: 40 mg Venlafaxine HCl (Effexor Xr) 75 mg PO DAILY [facility] Last Admin: 07/23/18 10:13 Dose: 75 mg - Labs Labs: 07/23/18 06:30 07/23/18 06:30 Assessment and Plan - Assessment and Plan (Free Text) Plan: Pt seen and examined. I have reviewed the note of the medical technologist prn and agree with it. I have discussed the assessment and plan with the resident. I have reviewed the patient's labs and medications. Pt with acute diverticulitis. She is feeling better. She is on IV Abx. I spoke to GI. Repeat CT of Abd was re viewed. On Synthroid for hypothyroidism.
--- NOTE | 2018-07-23 10:43 | CP.PCM.PN ---
<KashClementine - Last Filed: 07/23/18 10:38> Subjective - Date & Time of Evaluation Date of Evaluation: 07/23/18 Time of Evaluation: 10:39 - Subjective Subjective: Gastroenterology Fellow/PGY6 Progress Note Patient notes improving abdominal pain. Tolerated ice chips and sips of water. A 12-point review of systems negative except for as above. Objective - Vital Signs/Intake and Output Vital Signs (last 24 hours): Temp Pulse Resp BP Pulse Ox 98.1 F 71 18 116/67 94 L 07/23/18 06:00 07/23/18 06:00 07/23/18 06:00 07/23/18 06:00 07/23/18 06:00 Intake and Output: 07/23/18 07/23/18 06:59 18:59 Intake Total 550 Balance 550 - Medications Medications: Current Medications Alprazolam (Xanax) 0.5 mg PO HS PRN; Protocol PRN Reason: Insomnia Last Admin: 07/23/18 03:41 Dose: 0.5 mg Lactated Ringer's (Lactated Ringer's) 1,000 mls @ 110 mls/hr IV .Q9H6M [facility] Last Admin: 07/23/18 05:34 Dose: 110 mls/hr Piperacillin Sod/Tazobactam Sod (Zosyn 3.375 In Ns 100ml) 100 mls @ 25 mls/hr IVPB Q8 [facility]; Protocol Stop: 07/31/18 11:27 Last Admin: 07/23/18 05:35 Dose: 25 mls/hr Levothyroxine Sodium (Synthroid) 75 mcg PO 0600 [facility] Last Admin: 07/23/18 05:35 Dose: 75 mcg Morphine Sulfate (Morphine) 5 mg IVP Q4H PRN PRN Reason: Pain, severe (8-10) Oxycodone/Acetaminophen (Percocet 5/325 Mg Tab) 1 tab PO Q4H PRN PRN Reason: Pain, moderate (4-7) Stop: 07/26/18 08:37 Pantoprazole Sodium (Protonix Inj) 40 mg IVP DAILY [facility] Last Admin: 07/23/18 10:13 Dose: 40 mg Venlafaxine HCl (Effexor Xr) 75 mg PO DAILY [facility] Last Admin: 07/23/18 10:13 Dose: 75 mg - Labs Labs: 07/23/18 06:30 07/23/18 06:30 - Constitutional Appears: Non-toxic, No Acute Distress - Head Exam Head Exam: ATRAUMATIC, NORMOCEPHALIC - Eye Exam Eye Exam: EOMI, PERRL. absent: Scleral icterus Pupil Exam: PERRL. absent: Miosis, Mydriatic - ENT Exam ENT Exam: Mucous Membranes Moist, Normal Oropharynx - Neck Exam Neck Exam: Full ROM, Normal Inspection - Respiratory Exam Respiratory Exam: Clear to Ausculation Bilateral. absent: Rales, Rhonchi, Wheezes - Cardiovascular Exam Cardiovascular Exam: RRR, +S1, +S2. absent: Gallop, Rubs - GI/Abdominal Exam GI & Abdominal Exam: Distended, Soft, Tenderness, Normal Bowel Sounds. absent: Firm, Guarding, Rigid, Organomegaly, Rebound Additional comments: B/L LQ tenderness to palpation - Extremities Exam Extremities Exam: Normal Inspection. absent: Pedal Edema - Neurological Exam Neurological Exam: Alert, Awake - Psychiatric Exam Psychiatric exam: Normal Affect, Normal Mood - Skin Skin Exam: Dry, Intact, Normal Color, Warm Assessment and Plan - Assessment and Plan (Free Text) Assessment: 58 year old female with PMH of Hypothyroidism, MDD, and Anxiety presenting with abdominal pain and diarrhea. Active treatment of intractable abdominal pain 2/[address] A/P 07/21/18. Endorses prior EGD and colonoscopy at least five years ago showing PUD and normal colon without polyps. Plan: -CT A/P without contrast- no signs of perforation -on Zosyn day 2 -pending stool workup -supportive care- pain control, anti-emetics -will follow clinical course <Deo Jeffries V - Last Filed: 07/23/18 21:43> Objective - Vital Signs/Intake and Output Vital Signs (last 24 hours): Temp Pulse Resp BP Pulse Ox 98 F 70 18 118/71 100 07/23/18 14:00 07/23/18 14:00 07/23/18 14:00 07/23/18 14:00 07/23/18 14:00 - Medications Medications: Current Medications Alprazolam (Xanax) 0.5 mg PO HS PRN; Protocol PRN Reason: Insomnia Last Admin: 07/23/18 03:41 Dose: 0.5 mg Piperacillin Sod/Tazobactam Sod (Zosyn 3.375 In Ns 100ml) 100 mls @ 25 mls/hr IVPB Q8 [facility]; Protocol Stop: 07/31/18 11:27 Last Admin: 07/23/18 14:40 Dose: 25 mls/hr Lactated Ringer's (Lactated Ringer's) 1,000 mls @ 83 mls/hr IV .Q12H3M [facility] Last Admin: 07/23/18 17:54 Dose: 83 mls/hr Levothyroxine Sodium (Synthroid) 75 mcg PO 0600 [facility] Last Admin: 07/23/18 05:35 Dose: 75 mcg Morphine Sulfate (Morphine) 5 mg IVP Q4H PRN PRN Reason: Pain, severe (8-10) Last Admin: 07/23/18 20:52 Dose: 5 mg Oxycodone/Acetaminophen (Percocet 5/325 Mg Tab) 1 tab PO Q4H PRN PRN Reason: Pain, moderate (4-7) Stop: 07/26/18 08:37 Pantoprazole Sodium (Protonix Inj) 40 mg IVP DAILY [facility] Last Admin: 07/23/18 10:13 Dose: 40 mg Venlafaxine HCl (Effexor Xr) 75 mg PO DAILY [facility] Last Admin: 07/23/18 10:13 Dose: 75 mg - Labs Labs: 07/23/18 06:30 07/23/18 06:30 Attending/Attestation - Attestation I have personally seen and examined this patient.: Yes I have fully participated in the care of the patient.: Yes I have reviewed all pertinent clinical information, including history, physical exam and plan: Yes Notes (Text): This is an addendum to GI progress report dictated by the GI Fellow.The patient was seen and examined earlier. Medical records, lab studies, imagings were reviewed. Last 24 hours events reviewed. Agreed with the above treatment plan as outlined in GI Fellow 's notes with the addition of the following 07/23/18 21:43
--- NOTE | 2018-07-23 11:10 | CP.PCM.PN ---
Subjective - Date & Time of Evaluation Date of Evaluation: 07/23/18 Time of Evaluation: 11:22 - Subjective Subjective: PGY-[address] To Patient seen and examined at bedside. No acute events overnight. Patient reporting improving abdominal pain. Patient amenable to trying to advance diet at this time. Will continue to follow. Objective - Vital Signs/Intake and Output Vital Signs (last 24 hours): Temp Pulse Resp BP Pulse Ox 98.1 F 71 18 116/67 94 L 07/23/18 06:00 07/23/18 06:00 07/23/18 06:00 07/23/18 06:00 07/23/18 06:00 Intake and Output: 07/23/18 07/23/18 06:59 18:59 Intake Total 550 Balance 550 - Medications Medications: Current Medications Alprazolam (Xanax) 0.5 mg PO HS PRN; Protocol PRN Reason: Insomnia Last Admin: 07/23/18 03:41 Dose: 0.5 mg Lactated Ringer's (Lactated Ringer's) 1,000 mls @ 110 mls/hr IV .Q9H6M [facility] Last Admin: 07/23/18 05:34 Dose: 110 mls/hr Piperacillin Sod/Tazobactam Sod (Zosyn 3.375 In Ns 100ml) 100 mls @ 25 mls/hr IVPB Q8 [facility]; Protocol Stop: 07/31/18 11:27 Last Admin: 07/23/18 05:35 Dose: 25 mls/hr Levothyroxine Sodium (Synthroid) 75 mcg PO 0600 [facility] Last Admin: 07/23/18 05:35 Dose: 75 mcg Morphine Sulfate (Morphine) 5 mg IVP Q4H PRN PRN Reason: Pain, severe (8-10) Oxycodone/Acetaminophen (Percocet 5/325 Mg Tab) 1 tab PO Q4H PRN PRN Reason: Pain, moderate (4-7) Stop: 07/26/18 08:37 Pantoprazole Sodium (Protonix Inj) 40 mg IVP DAILY [facility] Last Admin: 07/23/18 10:13 Dose: 40 mg Venlafaxine HCl (Effexor Xr) 75 mg PO DAILY [facility] Last Admin: 07/23/18 10:13 Dose: 75 mg - Labs Labs: 07/23/18 06:30 07/23/18 06:30 - Constitutional Appears: Non-toxic, No Acute Distress - Head Exam Head Exam: ATRAUMATIC, NORMAL INSPECTION - Eye Exam Eye Exam: EOMI, Normal appearance - ENT Exam ENT Exam: Mucous Membranes Moist - Respiratory Exam Respiratory Exam: Clear to Ausculation Bilateral. absent: Rales, Rhonchi, Wheezes - GI/Abdominal Exam GI & Abdominal Exam: Soft, Tenderness (Improving abdominal tenderness), Normal Bowel Sounds - Extremities Exam Extremities Exam: absent: Pedal Edema, Tenderness - Neurological Exam Neurological Exam: Alert, Awake, Oriented x3 - Psychiatric Exam Psychiatric exam: Normal Affect, Normal Mood - Skin Skin Exam: Dry, Intact, Warm Assessment and Plan - Assessment and Plan (Free Text) Assessment: 58 year old female with admitted with diverticulitis. Surgery consulted for failed outpatient treatment. -CT AP 07/21: Stable distal descending colon diverticulitis without overt CT pattern of perforation appreciable at this time. -Abdominal pain much improved. Okay for diet to be advanced to clears per surgery. -Urine culture NG FINAL. Blood cultures neg x24 hours. -continue with NPO, LRs, IV abx, and pain management -Percocet 1 tab PO Q4 prn for moderate pain, morphine 5mg IV Q4 for severe pain -continue serial abdominal exams -encourage out of bed -Continue to follow daily labs
[2018-07-23] MEDS: Morphine 4 mg/ml ISec IVP PRN ×2 (14:38→20:52)
--- NOTE | 2018-07-23 22:33 | PN ---
DATE: 07/23/2018 SUBJECTIVE: The patient is seen in bed, in no acute distress, nontoxic. PHYSICAL EXAMINATION: VITAL SIGNS: Temperature is 98, blood pressure is 118/70, respiratory rate of 18. HEENT: Unremarkable. NECK: Supple. LUNGS: Decreased breath sounds. HEART: Normal S1, S2. ABDOMEN: Soft, nontender. LABORATORY EXAMINATION: Reveals a white count of 6.7, hemoglobin of 12, and platelets of 250. BUN of 5, creatinine of 0.6. Urinalysis is noted. Serology is negative. Microbiology reveals the blood cultures are negative. Urine cultures are negative. HIV is negative. ASSESSMENT/PLAN: This is a 58-year-old female with past medical history of diverticulitis, anxiety, hypothyroidism, depression, and presented with acute diverticulitis, failure to respond to antibiotics as outpatient. Currently on Zosyn with some improvement from yesterday. Kosta Henriquez MD
--- NOTE | 2018-07-24 03:13 | PN ---
DATE: 07/23/2018 Leti Bull is seen this morning. The pain in the left lower quadrant is markedly improved. She is passing gas, but not had a bowel movement today, although there was one yesterday. The abdomen is now soft, little bit tender in the left lower quadrant, but much improved. The note from the resident is reviewed and agreed. Danis To MD
--- NOTE | 2018-07-24 06:01 | CP.PCM.PN ---
Subjective - Date & Time of Evaluation Date of Evaluation: 07/24/18 Time of Evaluation: 05:58 - Subjective Subjective: General Surgery Dr. To Pt S&E @bedside. NAEO. pt has no complaints this AM. Pt denies F/C, N/V, D/C. pain well controlled w/ meds. Pt not taking Percocet due to Hx of nausea/vomiting. currently tolerating FLD. Objective - Vital Signs/Intake and Output Vital Signs (last 24 hours): Temp Pulse Resp BP Pulse Ox 98.3 F 70 18 134/83 96 07/23/18 20:00 07/23/18 20:00 07/23/18 20:00 07/23/18 20:00 07/23/18 20:00 Intake and Output: 07/23/18 07/24/18 18:59 06:59 Intake Total 120 Balance 120 - Medications Medications: Current Medications Alprazolam (Xanax) 0.5 mg PO HS PRN; Protocol PRN Reason: Insomnia Last Admin: 07/23/18 22:32 Dose: 0.5 mg Piperacillin Sod/Tazobactam Sod (Zosyn 3.375 In Ns 100ml) 100 mls @ 25 mls/hr IVPB Q8 [facility]; Protocol Stop: 07/31/18 11:27 Last Admin: 07/23/18 22:32 Dose: 25 mls/hr Lactated Ringer's (Lactated Ringer's) 1,000 mls @ 83 mls/hr IV .Q12H3M [facility] Last Admin: 07/23/18 17:54 Dose: 83 mls/hr Levothyroxine Sodium (Synthroid) 75 mcg PO 0600 [facility] Last Admin: 07/23/18 05:35 Dose: 75 mcg Morphine Sulfate (Morphine) 5 mg IVP Q4H PRN PRN Reason: Pain, severe (8-10) Last Admin: 07/23/18 20:52 Dose: 5 mg Oxycodone/Acetaminophen (Percocet 5/325 Mg Tab) 1 tab PO Q4H PRN PRN Reason: Pain, moderate (4-7) Stop: 07/26/18 08:37 Pantoprazole Sodium (Protonix Inj) 40 mg IVP DAILY [facility] Last Admin: 07/23/18 10:13 Dose: 40 mg Venlafaxine HCl (Effexor Xr) 75 mg PO DAILY [facility] Last Admin: 07/23/18 10:13 Dose: 75 mg - Labs Labs: 07/23/18 06:30 07/23/18 06:30 - Constitutional Appears: Non-toxic, No Acute Distress - Head Exam Head Exam: NORMAL INSPECTION - Eye Exam Eye Exam: Normal appearance - ENT Exam ENT Exam: Mucous Membranes Moist - Respiratory Exam Respiratory Exam: NORMAL BREATHING PATTERN. absent: Accessory Muscle Use, Respiratory Distress - Cardiovascular Exam Cardiovascular Exam: REGULAR RHYTHM. absent: Bradycardia, Tachycardia - GI/Abdominal Exam GI & Abdominal Exam: Guarding (voluntary), Soft, Tenderness (LLQ/LUQ TTP). absent: Distended, Firm, Rebound - Extremities Exam Extremities Exam: Normal Inspection - Neurological Exam Neurological Exam: Alert, Awake, Oriented x3 - Psychiatric Exam Psychiatric exam: Normal Affect, Normal Mood - Skin Skin Exam: Dry, Intact, Normal Color, Warm Assessment and Plan - Assessment and Plan (Free Text) Assessment: 58 y/o F w/ acute diverticulitis Plan: - cont FLD w/ possible advancement to soft, low residue diet later today - will change Percocet to Tramadol - consider adding Toradol - cont IV Abx - monitor bowel fxn - serial abd exams - cont medical management - encourage OOb to chair/Amb - DVT PPx Pt discussed w/ Dr. Yousuf Abrams DO PGY3
[2018-07-24] MEDS: Levothyroxine 75 MCG TAB PO SCH (06:36)
[2018-07-24] MEDS: Piperacillin/Tazobact 3.375 gm 100 ML IVPB SCH ×3 (06:36→21:25)
[2018-07-24 06:55] LABS: BASO # 0.03 K/mm3 (0.0-2.0); BASO % 0.5 % (0.0-3.0); EOS # 0.5 (0.0-0.7); EOS % 7.5 % (1.5-5.0); GRAN # 3.49 (1.4-6.5); GRAN % 55.3 % (50.0-68.0); LYMPH # 1.8 (1.2-3.4); LYMPH % 29.2 % (22.0-35.0); MEAN CELL VOLUME 87.3 fl (80.0-105.0); MEAN CORPUSCULAR HEMOGLOBIN 29.2 pg (25.0-35.0); MEAN CORPUSCULAR HGB CONC 33.4 g/dl (31.0-37.0); MEAN PLATELET VOLUME 9.6 fl (7.0-11.0); MONO # 0.5 (0.1-0.6); MONO % 7.5 % (1.0-6.0); RBC 4.11 10^6/uL (3.5-6.1); RED CELL DISTRIBUTION WIDTH 13.4 % (11.5-14.5); WHITE BLOOD COUNT 6.3 10^3/uL (4.5-11.0)
[2018-07-24 07:36] LABS: ALB/GLOB RATIO 1.1 (1.1-1.8); ALBUMIN 3.2 g/dL (3.0-4.8); ALT/SGPT 23 U/L (7-56); AST/SGOT 24 U/L (14-36); BLOOD UREA NITROGEN 2 mg/dL (7-21); CALCIUM 8.8 mg/dL (8.4-10.5); GFR NON-AFRICAN AMERICAN > 60
[2018-07-24] MEDS ORDERED: Potassium Chloride 20 mEq ER Tab PO ONE (07:57)
[2018-07-24] MEDS: Venlafaxine 75 mg ER Cap PO SCH (09:35)
[2018-07-24] MEDS: Morphine 4 mg/ml ISec IVP PRN ×2 (09:35→18:02)
--- NOTE | 2018-07-24 11:10 | CP.PCM.PN ---
<Carlos Alberto Acevedo - Last Filed: 07/24/18 12:20> Subjective - Date & Time of Evaluation Date of Evaluation: 07/24/18 Time of Evaluation: 11:07 - Subjective Subjective: Abdominal pain is improved but still present. She has a very specific diet she wants to follow. She is requesting jello and ice chips. Denies vomiting. She had BM yesterday. Objective - Vital Signs/Intake and Output Vital Signs (last 24 hours): Temp Pulse Resp BP Pulse Ox 97.8 F 61 20 124/79 95 07/24/18 06:00 07/24/18 06:00 07/24/18 06:00 07/24/18 06:00 07/24/18 06:00 Intake and Output: 07/24/18 07/24/18 06:59 18:59 Intake Total 120 Balance 120 - Medications Medications: Current Medications Alprazolam (Xanax) 0.5 mg PO HS PRN; Protocol PRN Reason: Insomnia Last Admin: 07/23/18 22:32 Dose: 0.5 mg Piperacillin Sod/Tazobactam Sod (Zosyn 3.375 In Ns 100ml) 100 mls @ 25 mls/hr IVPB Q8 [facility]; Protocol Stop: 07/31/18 11:27 Last Admin: 07/24/18 06:36 Dose: 25 mls/hr Lactated Ringer's (Lactated Ringer's) 1,000 mls @ 83 mls/hr IV .Q12H3M [facility] Last Admin: 07/23/18 17:54 Dose: 83 mls/hr Ketorolac Tromethamine (Toradol) 15 mg IVP Q6 [facility] Stop: 07/29/18 12:01 Levothyroxine Sodium (Synthroid) 75 mcg PO 0600 [facility] Last Admin: 07/24/18 06:36 Dose: 75 mcg Morphine Sulfate (Morphine) 5 mg IVP Q4H PRN PRN Reason: Pain, severe (8-10) Last Admin: 07/24/18 09:35 Dose: 5 mg Pantoprazole Sodium (Protonix Inj) 40 mg IVP DAILY [facility] Last Admin: 07/24/18 09:35 Dose: 40 mg Tramadol HCl (Ultram) 50 mg PO Q6 PRN PRN Reason: Pain, moderate (4-7) Venlafaxine HCl (Effexor Xr) 75 mg PO DAILY [facility] Last Admin: 07/24/18 09:35 Dose: 75 mg - Labs Labs: 07/24/18 05:30 07/24/18 05:30 - Constitutional Appears: Non-toxic, No Acute Distress - Head Exam Head Exam: ATRAUMATIC, NORMAL INSPECTION - Eye Exam Eye Exam: EOMI, Normal appearance - ENT Exam ENT Exam: Mucous Membranes Moist, Normal Exam - Respiratory Exam Respiratory Exam: Clear to Ausculation Bilateral, NORMAL BREATHING PATTERN - Cardiovascular Exam Cardiovascular Exam: REGULAR RHYTHM, +S1, +S2 - GI/Abdominal Exam GI & Abdominal Exam: Soft, Normal Bowel Sounds. absent: Tenderness - Neurological Exam Neurological Exam: Alert, Awake, Oriented x3 - Psychiatric Exam Psychiatric exam: Normal Affect, Normal Mood - Skin Skin Exam: Dry, Normal Color Assessment and Plan - Assessment and Plan (Free Text) Assessment: 58 year old female with PMH of Hypothyroidism, MDD, and Anxiety presenting with abdominal pain and diarrhea. Active treatment of intractable abdominal pain 2/[address] A/P 07/21/18. Endorses prior EGD and colonoscopy at least five years ago showing PUD and normal colon without polyps. Plan: -CT A/P without contrast- no signs of perforation -on Zosyn day 3 -pending stool workup -supportive care- pain control, anti-emetics -will follow clinical course -Advancing diet per surgical team <Deo Jeffries V - Last Filed: 07/24/18 23:56> Objective - Vital Signs/Intake and Output Vital Signs (last 24 hours): Temp Pulse Resp BP Pulse Ox 97.7 F 67 20 123/83 96 07/24/18 22:00 07/24/18 22:00 07/24/18 22:00 07/24/18 22:00 07/24/18 22:00 Intake and Output: 07/24/18 07/25/18 18:59 06:59 Intake Total 420 Balance 420 - Medications Medications: Current Medications Alprazolam (Xanax) 0.5 mg PO HS PRN; Protocol PRN Reason: Insomnia Last Admin: 07/24/18 21:36 Dose: 0.5 mg Heparin Sodium (Porcine) (Heparin) 5,000 units SC Q12 [facility]; Protocol Last Admin: 07/24/18 21:25 Dose: 5,000 units Piperacillin Sod/Tazobactam Sod (Zosyn 3.375 In Ns 100ml) 100 mls @ 25 mls/hr IVPB Q8 [facility]; Protocol Stop: 07/31/18 11:27 Last Admin: 07/24/18 21:25 Dose: 25 mls/hr Lactated Ringer's (Lactated Ringer's) 1,000 mls @ 83 mls/hr IV .Q12H3M [facility] Last Admin: 07/24/18 14:50 Dose: 83 mls/hr Ketorolac Tromethamine (Toradol) 15 mg IVP Q6 [facility] Stop: 07/29/18 12:01 Last Admin: 07/24/18 17:43 Dose: Not Given Levothyroxine Sodium (Synthroid) 75 mcg PO 0600 [facility] Last Admin: 07/24/18 06:36 Dose: 75 mcg Morphine Sulfate (Morphine) 5 mg IVP Q4H PRN PRN Reason: Pain, severe (8-10) Last Admin: 07/24/18 18:02 Dose: 5 mg Pantoprazole Sodium (Protonix Inj) 40 mg IVP DAILY [facility] Last Admin: 07/24/18 09:35 Dose: 40 mg Tramadol HCl (Ultram) 50 mg PO Q6 PRN PRN Reason: Pain, moderate (4-7) Venlafaxine HCl (Effexor Xr) 75 mg PO DAILY [facility] Last Admin: 07/24/18 09:35 Dose: 75 mg - Labs Labs: 07/24/18 05:30 07/24/18 05:30 Attending/Attestation - Attestation I have personally seen and examined this patient.: Yes I have fully participated in the care of the patient.: Yes I have reviewed all pertinent clinical information, including history, physical exam and plan: Yes Notes (Text): This is an addendum to GI progress report dictated by the GI Fellow.The patient was seen and examined earlier. Medical records, lab studies, imagings were reviewed. Last 24 hours events reviewed. Agreed with the above treatment plan as outlined in GI Fellow 's notes with the addition of the following 07/24/18 23:55
--- NOTE | 2018-07-24 11:16 | PN ---
DATE: 07/24/2018 SUBJECTIVE: The patient is in bed in no acute distress, nontoxic. PHYSICAL EXAMINATION: VITAL SIGNS: Temperature is 98, blood pressure is 120/70, respiratory rate of 18, heart rate of 70. HEENT: Unremarkable. NECK: Supple. LUNGS: Have decreased breath sounds. HEART: Normal S1, S2. ABDOMEN: Soft and nontender. LABORATORY EXAMINATION: Reveals a white count of 6.3, hemoglobin of 12. Chemistries reveals the BUN of 2, creatinine 0.7 and urinalysis is noted. HIV is negative. Microbiology reveals the blood cultures are negative and Dr. To's note from today is reviewed. ASSESSMENT AND PLAN: This is a 58-year-old female seen earlier today in 560, bed 2, with past medical history of diverticulitis, anxiety, hypothyroidism, depression, admitted with acute diverticulitis, failed as an outpatient antibiotic therapy, currently on Zosyn, improving slowly as per surgery and Gastroenterology. Review of orders reveals this Zosyn is active. The patient appears to be improving slowly. Kosta Henriquez MD
--- NOTE | 2018-07-24 13:40 | PN ---
DATE: 07/24/2018 HISTORY OF PRESENT ILLNESS: Ms. Bull is a 58-year-old female, admitted to the hospital with diverticulitis. She had elevated white count on admission. She also has history of anxiety, depression and hypothyroidism, history of GERD. She was started on liquid diet today. Tolerating it well. No fever. No chills. No rigors. Currently, on IV antibiotic as per ID. REVIEW OF SYSTEMS: As per HPI. Rest of 12-point review of systems reviewed negative. PAST MEDICAL HISTORY: Diverticulitis, anxiety, depression, hypothyroidism, GERD. PAST SURGICAL HISTORY: None. ALLERGIES: TO FISH. MEDICATIONS: Home medications, Effexor, Synthroid, Protonix, Seroquel. SOCIAL HISTORY: No history of alcohol abuse. No history of smoking. PHYSICAL EXAMINATION: GENERAL: Comfortable in bed, in no acute distress. VITAL SIGNS: Temperature 98.7, heart rate is 80 per minute, respiratory rate 12 per minute, blood pressure 112/70. HEENT: Pallor positive. NECK: No lymphadenopathy. CHEST: Air entry present and equal, bilateral. No added sound. CARDIOVASCULAR: S1, S2 normal. No murmur. No gallop. ABDOMEN: Soft, nontender. No rebound tenderness. No mass. No guarding. No rigidity. LABORATORY DATA: White count 11.7 on admission, declined to 6.3; hemoglobin 12.2; hematocrit 35.9; platelet 291. Sodium 141, potassium 4.3, creatinine 0.7. LFTs within normal limits. ASSESSMENT: 1. Acute diverticulitis. 2. History of depression. 3. Leukocytosis. 4. Hypothyroidism. PLAN: She is currently started on oral liquids. We will see how she tolerates the liquids. No pain issues. Dr. Henriquez following, note reviewed. She is currently on Zosyn. I advised her to ambulate. Doppler of lower extremity negative. Currently, on morphine p.r.n. for pain. We will add heparin 5000 units b.i.d. for DVT prophylaxis as she is not ambulating at all. Discussed with the staff nurse. Leila Andrews MD [facility] # [id number] MTDD
[2018-07-24] MEDS: Lactated Ringer's 1,000 ML IV SCH (14:50)
[2018-07-25] MEDS: Piperacillin/Tazobact 3.375 gm 100 ML IVPB SCH ×3 (05:01→21:30)
[2018-07-25] MEDS: Levothyroxine 75 MCG TAB PO SCH (05:02)
[2018-07-25] MEDS: Morphine 4 mg/ml ISec IVP PRN ×2 (05:33→13:08)
[2018-07-25 07:02] LABS: BASO # 0.03 K/mm3 (0.0-2.0); BASO % 0.5 % (0.0-3.0); EOS # 0.4 (0.0-0.7); EOS % 6.5 % (1.5-5.0); GRAN # 3.34 (1.4-6.5); GRAN % 50.3 % (50.0-68.0); LYMPH # 2.4 (1.2-3.4); LYMPH % 35.8 % (22.0-35.0); MEAN CELL VOLUME 86.9 fl (80.0-105.0); MEAN CORPUSCULAR HEMOGLOBIN 28.5 pg (25.0-35.0); MEAN CORPUSCULAR HGB CONC 32.8 g/dl (31.0-37.0); MEAN PLATELET VOLUME 9.4 fl (7.0-11.0); MONO # 0.5 (0.1-0.6); MONO % 6.9 % (1.0-6.0); RBC 4.21 10^6/uL (3.5-6.1); RED CELL DISTRIBUTION WIDTH 13.4 % (11.5-14.5); WHITE BLOOD COUNT 6.6 10^3/uL (4.5-11.0)
[2018-07-25 07:27] LABS: ALB/GLOB RATIO 1.1 (1.1-1.8); ALBUMIN 3.4 g/dL (3.0-4.8); ALT/SGPT 27 U/L (7-56); AST/SGOT 24 U/L (14-36); BLOOD UREA NITROGEN 2 mg/dL (7-21); CALCIUM 8.8 mg/dL (8.4-10.5); GFR NON-AFRICAN AMERICAN > 60
--- NOTE | 2018-07-25 08:15 | CP.PCM.PN ---
Subjective - Date & Time of Evaluation Date of Evaluation: 07/25/18 Time of Evaluation: 08:10 - Subjective Subjective: Surgery Progress Note Patient seen and examined at bedside this morning after breakfast. Patient states LLQ pain still present but significantly improved. Patient has been tolerating a soft diet; she had mashed potatoes last night and this morning had bagel, low fat milk, and banana. Denies nausea, vomiting, diarrhea, constipation. She had a soft BM this morning without complaints. Objective - Vital Signs/Intake and Output Vital Signs (last 24 hours): Temp Pulse Resp BP Pulse Ox 97.7 F 67 20 123/83 96 07/24/18 22:00 07/24/18 22:00 07/24/18 22:00 07/24/18 22:00 07/24/18 22:00 Intake and Output: 07/25/18 07/25/18 06:59 18:59 Intake Total 420 Balance 420 - Medications Medications: Current Medications Alprazolam (Xanax) 0.5 mg PO HS PRN; Protocol PRN Reason: Insomnia Last Admin: 07/24/18 21:36 Dose: 0.5 mg Heparin Sodium (Porcine) (Heparin) 5,000 units SC Q12 [facility]; Protocol Last Admin: 07/24/18 21:25 Dose: 5,000 units Piperacillin Sod/Tazobactam Sod (Zosyn 3.375 In Ns 100ml) 100 mls @ 25 mls/hr IVPB Q8 [facility]; Protocol Stop: 07/31/18 11:27 Last Admin: 07/25/18 05:01 Dose: 25 mls/hr Lactated Ringer's (Lactated Ringer's) 1,000 mls @ 83 mls/hr IV .Q12H3M [facility] Last Admin: 07/24/18 14:50 Dose: 83 mls/hr Ketorolac Tromethamine (Toradol) 15 mg IVP Q6 [facility] Stop: 07/29/18 12:01 Last Admin: 07/25/18 05:41 Dose: Not Given Levothyroxine Sodium (Synthroid) 75 mcg PO 0600 [facility] Last Admin: 07/25/18 05:02 Dose: 75 mcg Morphine Sulfate (Morphine) 5 mg IVP Q4H PRN PRN Reason: Pain, severe (8-10) Last Admin: 07/25/18 05:33 Dose: 5 mg Pantoprazole Sodium (Protonix Inj) 40 mg IVP DAILY [facility] Last Admin: 07/24/18 09:35 Dose: 40 mg Tramadol HCl (Ultram) 50 mg PO Q6 PRN PRN Reason: Pain, moderate (4-7) Venlafaxine HCl (Effexor Xr) 75 mg PO DAILY [facility] Last Admin: 07/24/18 09:35 Dose: 75 mg - Labs Labs: 07/25/18 06:20 07/25/18 06:20 - Constitutional Appears: Well (OOB in chair, just finished breakfast), No Acute Distress - Head Exam Head Exam: ATRAUMATIC, NORMAL INSPECTION, NORMOCEPHALIC - Eye Exam Eye Exam: EOMI, Normal appearance - Neck Exam Neck Exam: Normal Inspection - Respiratory Exam Respiratory Exam: Clear to Ausculation Bilateral, NORMAL BREATHING PATTERN - Cardiovascular Exam Cardiovascular Exam: REGULAR RHYTHM - GI/Abdominal Exam GI & Abdominal Exam: Soft, Tenderness (mild tenderness to palpation RUQ and LLQ), Normal Bowel Sounds. absent: Guarding, Rigid, Rebound - Extremities Exam Extremities Exam: Normal Capillary Refill. absent: Tenderness - Neurological Exam Neurological Exam: Alert, Awake, Normal Gait, Oriented x3 - Psychiatric Exam Psychiatric exam: Normal Affect, Normal Mood - Skin Skin Exam: Dry, Intact, Normal Color, Warm Assessment and Plan - Assessment and Plan (Free Text) Assessment: 58 y/o F w/ acute diverticulitis - ADAT - low fiber diet while on abx, then high fiber diet after abx course finished - cont abx regimen, recommend switch from IV to PO - cont medical management - encourage OOB to chair and ambulation - recommend colonoscopy 6 weeks after hospital discharge dispo: patient cleared to be discharged from surgical standpoint Lisa White DO PGY1
--- NOTE | 2018-07-25 10:13 | PN ---
DATE: 07/25/2018 SUBJECTIVE: The patient is in bed, in no acute distress, nontoxic. PHYSICAL EXAMINATION: VITAL SIGNS: On exam, temperature is 98, blood pressure is 120/70, respiratory rate 16. HEENT: Examination of HEENT is unremarkable. NECK: Supple. LUNGS: Have decreased breath sounds. HEART: Normal S1, S2. ABDOMEN: Soft. LABORATORY DATA: Laboratory examination reveals a white count of 6.6, hemoglobin of 12, platelets of 294. Chemistries, BUN of 2, creatinine 0.7. Urinalysis is noted. Serology is noted and microbiology reveals the blood cultures are negative, urine cultures are negative. ASSESSMENT AND PLAN: A 58-year-old female who was seen earlier today with past medical history of diverticulitis, anxiety, hypothyroidism, depression, admitted with acute diverticulitis, failed as outpatient antibiotic therapy, currently on Zosyn and continues to have pain, however, somewhat improved. We will repeat a CAT scan in a few days. Should have IV and p.o. contrast to rule out micro perforation and collection. We will follow with you. Kosta Henriquez MD
[2018-07-25] MEDS: Venlafaxine 75 mg ER Cap PO SCH (11:02)
[2018-07-25] MEDS: Lactated Ringer's 1,000 ML IV SCH (11:03)
--- NOTE | 2018-07-25 12:18 | CP.PCM.PN ---
<KristinaCarlos Alberto - Last Filed: 07/25/18 14:23> Subjective - Date & Time of Evaluation Date of Evaluation: 07/25/18 Time of Evaluation: 12:15 - Subjective Subjective: Patient tolerated bagel and banana this AM. Still with mild pain of the abdomen. She able to ambulate with ease. Objective - Vital Signs/Intake and Output Vital Signs (last 24 hours): Temp Pulse Resp BP Pulse Ox 98.4 F 68 20 129/77 97 07/25/18 06:00 07/25/18 06:00 07/25/18 06:00 07/25/18 06:00 07/25/18 06:00 Intake and Output: 07/25/18 07/25/18 06:59 18:59 Intake Total 420 Balance 420 - Medications Medications: Current Medications Alprazolam (Xanax) 0.5 mg PO HS PRN; Protocol PRN Reason: Insomnia Last Admin: 07/24/18 21:36 Dose: 0.5 mg Heparin Sodium (Porcine) (Heparin) 5,000 units SC Q12 [facility]; Protocol Last Admin: 07/25/18 11:02 Dose: 5,000 units Piperacillin Sod/Tazobactam Sod (Zosyn 3.375 In Ns 100ml) 100 mls @ 25 mls/hr IVPB Q8 [facility]; Protocol Stop: 07/31/18 11:27 Last Admin: 07/25/18 05:01 Dose: 25 mls/hr Lactated Ringer's (Lactated Ringer's) 1,000 mls @ 83 mls/hr IV .Q12H3M [facility] Last Admin: 07/25/18 11:03 Dose: 83 mls/hr Ketorolac Tromethamine (Toradol) 15 mg IVP Q6 [facility] Stop: 07/29/18 12:01 Last Admin: 07/25/18 05:41 Dose: Not Given Levothyroxine Sodium (Synthroid) 75 mcg PO 0600 [facility] Last Admin: 07/25/18 05:02 Dose: 75 mcg Morphine Sulfate (Morphine) 5 mg IVP Q4H PRN PRN Reason: Pain, severe (8-10) Last Admin: 07/25/18 05:33 Dose: 5 mg Pantoprazole Sodium (Protonix Ec Tab) 40 mg PO ACB [facility] Tramadol HCl (Ultram) 50 mg PO Q6 PRN PRN Reason: Pain, moderate (4-7) Venlafaxine HCl (Effexor Xr) 75 mg PO DAILY [facility] Last Admin: 07/25/18 11:02 Dose: 75 mg - Labs Labs: 07/25/18 06:20 07/25/18 06:20 - Constitutional Appears: Non-toxic, No Acute Distress - Head Exam Head Exam: NORMAL INSPECTION - Eye Exam Eye Exam: Normal appearance - ENT Exam ENT Exam: Mucous Membranes Moist - Respiratory Exam Respiratory Exam: Clear to Ausculation Bilateral, NORMAL BREATHING PATTERN - Cardiovascular Exam Cardiovascular Exam: REGULAR RHYTHM, +S1, +S2 - GI/Abdominal Exam GI & Abdominal Exam: Soft, Tenderness, Normal Bowel Sounds - Neurological Exam Neurological Exam: Alert, Awake, Oriented x3 - Psychiatric Exam Psychiatric exam: Normal Affect, Normal Mood - Skin Skin Exam: Dry, Normal Color Assessment and Plan - Assessment and Plan (Free Text) Assessment: 58 year old female with PMH of Hypothyroidism, MDD, and Anxiety presenting with abdominal pain and diarrhea. Active treatment of intractable abdominal pain 2/[address] A/P 07/21/18. Endorses prior EGD and colonoscopy at least five years ago showing PUD and normal colon without polyps. Plan: -CT A/P without contrast- no signs of perforation. - ID requesting to repeating CT scan with contrast, concern for microperforation/collections. -on Zosyn day 4 -pending stool workup -supportive care- pain control, anti-emetics -will follow clinical course -Advancing diet per surgical team <Deo Jeffries V - Last Filed: 07/25/18 19:48> Objective - Vital Signs/Intake and Output Vital Signs (last 24 hours): Temp Pulse Resp BP Pulse Ox 98.3 F 70 20 138/91 H 95 07/25/18 14:00 07/25/18 14:00 07/25/18 14:00 07/25/18 14:00 07/25/18 14:00 Intake and Output: 07/25/18 07/26/18 18:59 06:59 Intake Total 620 Balance 620 - Medications Medications: Current Medications Alprazolam (Xanax) 0.5 mg PO HS PRN; Protocol PRN Reason: Insomnia Last Admin: 07/24/18 21:36 Dose: 0.5 mg Heparin Sodium (Porcine) (Heparin) 5,000 units SC Q12 [facility]; Protocol Last Admin: 07/25/18 11:02 Dose: 5,000 units Piperacillin Sod/Tazobactam Sod (Zosyn 3.375 In Ns 100ml) 100 mls @ 25 mls/hr IVPB Q8 [facility]; Protocol Stop: 07/31/18 11:27 Last Admin: 07/25/18 13:09 Dose: 25 mls/hr Ketorolac Tromethamine (Toradol) 15 mg IVP Q6 [facility] Stop: 07/29/18 12:01 Last Admin: 07/25/18 18:06 Dose: 15 mg Levothyroxine Sodium (Synthroid) 75 mcg PO 0600 [facility] Last Admin: 07/25/18 05:02 Dose: 75 mcg Pantoprazole Sodium (Protonix Ec Tab) 40 mg PO ACB [facility] Tramadol HCl (Ultram) 50 mg PO Q6 PRN PRN Reason: Pain, moderate (4-7) Venlafaxine HCl (Effexor Xr) 75 mg PO DAILY [facility] Last Admin: 07/25/18 11:02 Dose: 75 mg - Labs Labs: 07/25/18 06:20 07/25/18 06:20 Attending/Attestation - Attestation I have personally seen and examined this patient.: Yes I have fully participated in the care of the patient.: Yes I have reviewed all pertinent clinical information, including history, physical exam and plan: Yes Notes (Text): This is an addendum to GI progress report dictated by the GI Fellow.The patient was seen and examined earlier. Medical records, lab studies, imagings were reviewed. Last 24 hours events reviewed. Agreed with the above treatment plan as outlined in GI Fellow 's notes with the addition of the following Patient is a complaint of pain left side of abdomen, but feels much better than before Continue IV antibiotics Patient did have two prevous CTs this admission and they were reviewed Continue close monitoring if the patient develops any acute worsening of the symptoms or tenderness we will consider repeat ct Advance diet to full lquids 07/25/18 19:46
[2018-07-26] MEDS: Piperacillin/Tazobact 3.375 gm 100 ML IVPB SCH ×3 (05:25→21:35)
[2018-07-26] MEDS: Levothyroxine 75 MCG TAB PO SCH (05:27)
[2018-07-26 07:01] LABS: BASO # 0.03 K/mm3 (0.0-2.0); BASO % 0.5 % (0.0-3.0); EOS # 0.4 (0.0-0.7); EOS % 5.6 % (1.5-5.0); GRAN # 3.98 (1.4-6.5); GRAN % 62.3 % (50.0-68.0); HEMOGLOBIN 12.9 g/dL (12.0-16.0); LYMPH # 1.5 (1.2-3.4); LYMPH % 23.4 % (22.0-35.0); MEAN CELL VOLUME 86.2 fl (80.0-105.0); MEAN CORPUSCULAR HEMOGLOBIN 29.3 pg (25.0-35.0); MEAN CORPUSCULAR HGB CONC 33.9 g/dl (31.0-37.0); MEAN PLATELET VOLUME 9.4 fl (7.0-11.0); MONO # 0.5 (0.1-0.6); MONO % 8.2 % (1.0-6.0); RBC 4.41 10^6/uL (3.5-6.1); WHITE BLOOD COUNT 6.4 10^3/uL (4.5-11.0)
[2018-07-26 07:39] LABS: ALB/GLOB RATIO 1.3 (1.1-1.8); ALBUMIN 3.4 g/dL (3.0-4.8); ALT/SGPT 24 U/L (7-56); AST/SGOT 18 U/L (14-36); BLOOD UREA NITROGEN 2 mg/dL (7-21); CALCIUM 9.3 mg/dL (8.4-10.5); GFR NON-AFRICAN AMERICAN > 60
--- NOTE | 2018-07-26 07:54 | CP.PCM.PN ---
Subjective - Date & Time of Evaluation Date of Evaluation: 07/26/18 Time of Evaluation: 07:10 - Subjective Subjective: Surgery Progress note. Dr. To service Pt seen and examined at bedside. No acute events overnight. Still c/o some discomfort at the LLQ. Tolerating diet, no nausea, no vomiting. No fevers or chills. Also c/o left upper back pain. Has been ambulating only within her room. Denies any bloody BMs. No other complaints noted. Objective - Vital Signs/Intake and Output Vital Signs (last 24 hours): Temp Pulse Resp BP Pulse Ox 98.4 F 64 18 142/74 96 07/26/18 02:00 07/26/18 02:00 07/26/18 02:00 07/26/18 02:00 07/26/18 02:00 - Medications Medications: Current Medications Alprazolam (Xanax) 0.5 mg PO HS PRN; Protocol PRN Reason: Insomnia Last Admin: 07/25/18 21:31 Dose: 0.5 mg Heparin Sodium (Porcine) (Heparin) 5,000 units SC Q12 KAREN; Protocol Last Admin: 07/25/18 21:29 Dose: 5,000 units Piperacillin Sod/Tazobactam Sod (Zosyn 3.375 In Ns 100ml) 100 mls @ 25 mls/hr IVPB Q8 KAREN; Protocol Stop: 07/31/18 11:27 Last Admin: 07/26/18 05:25 Dose: 25 mls/hr Ketorolac Tromethamine (Toradol) 15 mg IVP Q6 KAREN Stop: 07/29/18 12:01 Last Admin: 07/26/18 05:23 Dose: 15 mg Levothyroxine Sodium (Synthroid) 75 mcg PO 0600 K[facility]EN Last Admin: 07/26/18 05:27 Dose: 75 mcg Pantoprazole Sodium (Protonix Ec Tab) 40 mg PO ACB KAREN Tramadol HCl (Ultram) 50 mg PO Q6 PRN PRN Reason: Pain, moderate (4-7) Venlafaxine HCl (Effexor Xr) 75 mg PO DAILY [facility] Last Admin: 07/25/18 11:02 Dose: 75 mg - Labs Labs: 07/26/18 06:00 07/26/18 06:00 - Constitutional Appears: Well, Non-toxic, No Acute Distress - Head Exam Head Exam: ATRAUMATIC, NORMAL INSPECTION, NORMOCEPHALIC - Eye Exam Eye Exam: EOMI, Normal appearance - ENT Exam ENT Exam: Mucous Membranes Moist - Respiratory Exam Respiratory Exam: NORMAL BREATHING PATTERN. absent: Accessory Muscle Use, Respiratory Distress - Cardiovascular Exam Cardiovascular Exam: absent: JVD - GI/Abdominal Exam GI & Abdominal Exam: Soft. absent: Distended, Firm, Guarding, Rebound Additional comments: mild tenderness to deep palpation LLQ. NO rebound, no guarding. Soft, non- distended - Extremities Exam Extremities Exam: Normal Inspection - Back Exam Back Exam: NORMAL INSPECTION - Neurological Exam Neurological Exam: Alert, Awake, Oriented x3 - Psychiatric Exam Psychiatric exam: Normal Affect, Normal Mood - Skin Skin Exam: Dry, Intact, Normal Color, Warm Assessment and Plan - Assessment and Plan (Free Text) Assessment: 58yo F w acute diverticulitis Plan: - Continue low fiber diet. May advance to high fiber diet once abx course completed and abd pain completely resolves - Abx as per ID recs - Encourage out of bed to chair. Encourage Ambulation - Will benefit from colonoscopy 6 weeks after discharge. f/u GI recs Further recs as per Dr. Yousuf Schwartz PGY2 Surgery
[2018-07-26] MEDS: Pantoprazole 40 mg EC Tab PO SCH (08:30)
--- NOTE | 2018-07-26 10:13 | CP.PCM.PN ---
<TitusnicolecarolCarlos Alberto - Last Filed: 07/26/18 10:57> Subjective - Date & Time of Evaluation Date of Evaluation: 07/26/18 Time of Evaluation: 10:11 - Subjective Subjective: Patient is resting comfortably in bed. No overnight events. She doesn't feel "right". Still complaining of LLQ sharp pain. ID requesting repeat CT scan. She is tolerating diet. Objective - Vital Signs/Intake and Output Vital Signs (last 24 hours): Temp Pulse Resp BP Pulse Ox 98.3 F 65 20 143/89 95 07/26/18 06:00 07/26/18 06:00 07/26/18 06:00 07/26/18 06:00 07/26/18 06:00 - Medications Medications: Current Medications Alprazolam (Xanax) 0.5 mg PO HS PRN; Protocol PRN Reason: Insomnia Last Admin: 07/25/18 21:31 Dose: 0.5 mg Heparin Sodium (Porcine) (Heparin) 5,000 units SC Q12 KAREN; Protocol Last Admin: 07/25/18 21:29 Dose: 5,000 units Piperacillin Sod/Tazobactam Sod (Zosyn 3.375 In Ns 100ml) 100 mls @ 25 mls/hr IVPB Q8 KAREN; Protocol Stop: 07/31/18 11:27 Last Admin: 07/26/18 05:25 Dose: 25 mls/hr Ketorolac Tromethamine (Toradol) 15 mg IVP Q6 KAREN Stop: 07/29/18 12:01 Last Admin: 07/26/18 05:23 Dose: 15 mg Levothyroxine Sodium (Synthroid) 75 mcg PO 0600 [facility] Last Admin: 07/26/18 05:27 Dose: 75 mcg Pantoprazole Sodium (Protonix Ec Tab) 40 mg PO ACB [facility] Last Admin: 07/26/18 08:30 Dose: 40 mg Tramadol HCl (Ultram) 50 mg PO Q6 PRN PRN Reason: Pain, moderate (4-7) Venlafaxine HCl (Effexor Xr) 75 mg PO DAILY [facility] Last Admin: 07/25/18 11:02 Dose: 75 mg - Labs Labs: 07/26/18 06:00 07/26/18 06:00 - Constitutional Appears: Non-toxic, No Acute Distress - Head Exam Head Exam: NORMAL INSPECTION, NORMOCEPHALIC - Eye Exam Eye Exam: EOMI, Normal appearance - ENT Exam ENT Exam: Mucous Membranes Moist - Respiratory Exam Respiratory Exam: Clear to Ausculation Bilateral, NORMAL BREATHING PATTERN - Cardiovascular Exam Cardiovascular Exam: REGULAR RHYTHM, +S1, +S2 - GI/Abdominal Exam GI & Abdominal Exam: Soft, Tenderness, Normal Bowel Sounds - Neurological Exam Neurological Exam: Alert, Awake, Oriented x3 - Psychiatric Exam Psychiatric exam: Normal Affect, Normal Mood - Skin Skin Exam: Dry, Normal Color Assessment and Plan - Assessment and Plan (Free Text) Assessment: 58 year old female with PMH of Hypothyroidism, MDD, and Anxiety presenting with abdominal pain and diarrhea. Active treatment of intractable abdominal pain 2/[address] A/P 07/21/18. Endorses prior EGD and colonoscopy at least five years ago showing PUD and normal colon without polyps. Plan: -CT A/P without contrast- no signs of perforation. - ID requesting to repeating CT scan with contrast, concern for microperforation/collections. -on Zosyn day 5 -C.Diff negative -supportive care- pain control, anti-emetics -will follow clinical course -Advancing diet per surgical team <Deo Jeffries V - Last Filed: 07/26/18 23:58> Objective - Vital Signs/Intake and Output Vital Signs (last 24 hours): Temp Pulse Resp BP Pulse Ox 98.5 F 76 20 150/96 H 97 07/26/18 22:43 07/26/18 22:43 07/26/18 22:43 07/26/18 22:43 07/26/18 22:43 Intake and Output: 07/26/18 07/27/18 18:59 06:59 Intake Total 460 240 Balance 460 240 - Medications Medications: Current Medications Alprazolam (Xanax) 0.5 mg PO HS PRN; Protocol PRN Reason: Insomnia Last Admin: 07/26/18 21:35 Dose: 0.5 mg Heparin Sodium (Porcine) (Heparin) 5,000 units SC Q12 KAREN; Protocol Last Admin: 07/26/18 21:34 Dose: 5,000 units Piperacillin Sod/Tazobactam Sod (Zosyn 3.375 In Ns 100ml) 100 mls @ 25 mls/hr IVPB Q8 KAREN; Protocol Stop: 07/31/18 11:27 Last Admin: 07/26/18 21:35 Dose: 25 mls/hr Sodium Chloride (Sodium Chloride 0.9%) 1,000 mls @ 80 mls/hr IV .[id number] [facility] Last Admin: 07/26/18 12:50 Dose: 80 mls/hr Levothyroxine Sodium (Synthroid) 75 mcg PO 0600 [facility] Last Admin: 07/26/18 05:27 Dose: 75 mcg Morphine Sulfate (Morphine) 2 mg IVP Q4H PRN PRN Reason: Pain, moderate (4-7) Last Admin: 07/26/18 22:57 Dose: 2 mg Pantoprazole Sodium (Protonix Ec Tab) 40 mg PO ACB [facility] Last Admin: 07/26/18 08:30 Dose: 40 mg Tramadol HCl (Ultram) 50 mg PO Q6 PRN PRN Reason: Pain, moderate (4-7) Venlafaxine HCl (Effexor Xr) 75 mg PO DAILY [facility] Last Admin: 07/26/18 10:33 Dose: Not Given - Labs Labs: 07/26/18 06:00 07/26/18 06:00 Attending/Attestation - Attestation I have personally seen and examined this patient.: Yes I have fully participated in the care of the patient.: Yes I have reviewed all pertinent clinical information, including history, physical exam and plan: Yes Notes (Text): This is an addendum to GI progress report dictated by the GI Fellow.The patient was seen and examined earlier. Medical records, lab studies, imagings were reviewed. Last 24 hours events reviewed. Agreed with the above treatment plan as outlined in GI Fellow 's notes with the addition of the following 07/26/18 23:58
[2018-07-26] MEDS: Venlafaxine 75 mg ER Cap PO SCH ×2 (10:30→10:33)
[2018-07-26] MEDS: Sodium Chloride 0.9% 1,000 ML IV SCH (12:50)
[2018-07-26] MEDS ORDERED: Iohexol 240 (50 ml) ONE (13:38)
[2018-07-26] MEDS ORDERED: Iohexol 350 MG/100 ML VIAL ONE (15:58)
--- NOTE | 2018-07-26 17:46 | CT ---
PROCEDURE: CT Abdomen and Pelvis with oral and IV contrast. HISTORY: diverticultitis COMPARISON: CT abdomen and pelvis without oral or IV contrast performed 07/22/18 TECHNIQUE: Contiguous axial images of the abdomen and pelvis. Oral and IV contrast was administered. Coronal and Sagittal reformats generated and reviewed. Contrast dose: 100 mL Omnipaque 350 Radiation dose: Total exam DLP = 811.72 mGy-cm. This CT exam was performed using one or more of the following dose reduction techniques: Automated exposure control, adjustment of the mA and/or kV according to patient size, and/or use of iterative reconstruction technique. FINDINGS: LOWER THORAX: No visible consolidation, pleural effusion, or pneumothorax. LIVER: Unremarkable. GALLBLADDER AND BILE DUCTS: Unremarkable. PANCREAS: Unremarkable. SPLEEN: Unremarkable. ADRENALS: Unremarkable. KIDNEYS AND URETERS: The kidneys enhance symmetrically. No hydronephrosis or obstructing renal calculus. BLADDER: The urinary bladder appears unremarkable. REPRODUCTIVE: The uterus is present and appears lobulated presumably due to fibroids. APPENDIX: The appendix appears within normal limits of caliber. No secondary signs of acute appendicitis. BOWEL: The stomach is nondistended. No evidence of bowel obstruction. Extensive diverticulitis involving the left colon. Marked wall thickening involving portions of the right colon/cecum, the transverse colon, and the rectosigmoid colon which appear consistent with colitis. PERITONEUM: No significant free fluid. No definite free air. LYMPH NODES: No bulky lymphadenopathy identified. VASCULATURE: No aortic aneurysm. No atherosclerotic calcification or mural plaque present. 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 Correlate clinically. BONES: Degenerative changes. OTHER FINDINGS: Small fat containing umbilical hernia. IMPRESSION: Acute diverticulitis persists involving the left colon. Marked wall thickening involving portions of the right colon/cecum, the transverse colon, and the rectosigmoid colon which appear consistent with colitis. Additional findings as above.
--- NOTE | 2018-07-26 21:06 | CP.PCM.PN ---
Subjective - Date & Time of Evaluation Date of Evaluation: 07/25/18 Time of Evaluation: 10:00 - Subjective Subjective: HISTORY OF PRESENT ILLNESS: Ms. Bull is a 58-year-old female, admitted to the hospital with diverticulitis. She had elevated white count on admission. She also has history of anxiety, depression and hypothyroidism, history of GERD. No fever. No chills. No rigors. Currently, on IV antibiotic as per ID. tolerating liquids. REVIEW OF SYSTEMS: As per HPI. Rest of 12-point review of systems reviewed negative. PAST MEDICAL HISTORY: Diverticulitis, anxiety, depression, hypothyroidism, GERD. PAST SURGICAL HISTORY: None. ALLERGIES: TO FISH. MEDICATIONS: Home medications, Effexor, Synthroid, Protonix, Seroquel. SOCIAL HISTORY: No history of alcohol abuse. No history of smoking. PHYSICAL EXAMINATION: GENERAL: Comfortable in bed, in no acute distress. VITAL SIGNS: reviewed. HEENT: Pallor positive. NECK: No lymphadenopathy. CHEST: Air entry present and equal, bilateral. No added sound. CARDIOVASCULAR: S1, S2 normal. No murmur. No gallop. ABDOMEN: Soft, nontender. No rebound tenderness. No mass. No guarding. No rigidity. LABORATORY DATA: White count 11.7 on admission, declined to 6.3; hemoglobin 12.2; hematocrit 35.9; platelet 291. Sodium 141, potassium 4.3, creatinine 0.7. LFTs within normal limits. ASSESSMENT: 1. Acute diverticulitis. 2. History of depression. 3. Leukocytosis. 4. Hypothyroidism. PLAN: She is tolerating liquids. has mild pain LLQ. Dr. Henriquez following, note reviewed. Followed by GI, surgery. She is currently on Zosyn. . Doppler of lower extremity negative. Currently, on morphine p.r.n. for pain. We will add heparin 5000 units b.i.d. for DVT prophylaxis. bedside PT. Discussed with the staff nurse. Leila Andrews MD Objective - Vital Signs/Intake and Output Vital Signs (last 24 hours): Temp Pulse Resp BP Pulse Ox 97.3 F L 80 20 158/103 H 99 07/26/18 14:00 07/26/18 14:00 07/26/18 14:00 07/26/18 14:00 07/26/18 14:00 Intake and Output: 07/26/18 07/27/18 18:59 06:59 Intake Total 460 Balance 460 - Medications Medications: Current Medications Alprazolam (Xanax) 0.5 mg PO HS PRN; Protocol PRN Reason: Insomnia Last Admin: 07/25/18 21:31 Dose: 0.5 mg Heparin Sodium (Porcine) (Heparin) 5,000 units SC Q12 KAREN; Protocol Last Admin: 07/26/18 10:32 Dose: Not Given Piperacillin Sod/Tazobactam Sod (Zosyn 3.375 In Ns 100ml) 100 mls @ 25 mls/hr IVPB Q8 KAREN; Protocol Stop: 07/31/18 11:27 Last Admin: 07/26/18 14:25 Dose: 25 mls/hr Sodium Chloride (Sodium Chloride 0.9%) 1,000 mls @ 80 mls/hr IV .[id number] [facility] Last Admin: 07/26/18 12:50 Dose: 80 mls/hr Ketorolac Tromethamine (Toradol) 15 mg IVP Q6 KAREN Stop: 07/29/18 12:01 Last Admin: 07/26/18 17:41 Dose: Not Given Levothyroxine Sodium (Synthroid) 75 mcg PO 0600 [facility] Last Admin: 07/26/18 05:27 Dose: 75 mcg Pantoprazole Sodium (Protonix Ec Tab) 40 mg PO ACB [facility] Last Admin: 07/26/18 08:30 Dose: 40 mg Tramadol HCl (Ultram) 50 mg PO Q6 PRN PRN Reason: Pain, moderate (4-7) Venlafaxine HCl (Effexor Xr) 75 mg PO DAILY [facility] Last Admin: 07/26/18 10:33 Dose: Not Given - Labs Labs: 07/26/18 06:00 07/26/18 06:00
--- NOTE | 2018-07-26 22:21 | CP.PCM.PN ---
Subjective - Date & Time of Evaluation Date of Evaluation: 07/26/18 Time of Evaluation: 10:00 - Subjective Subjective: HISTORY OF PRESENT ILLNESS: Ms. Bull is a 58-year-old female, admitted to the hospital with diverticulitis. She had elevated white count on admission. She also has history of anxiety, depression and hypothyroidism, history of GERD. No fever. No chills. No rigors. Currently, on IV antibiotic as per ID. tolerating liquids. Complaining of abdominal discomfort. No nausea/vomiting. Not able to ambulate due to pain. REVIEW OF SYSTEMS: As per HPI. Rest of 12-point review of systems reviewed negative. PAST MEDICAL HISTORY: Diverticulitis, anxiety, depression, hypothyroidism, GERD. PAST SURGICAL HISTORY: None. ALLERGIES: TO FISH. MEDICATIONS: Home medications, Effexor, Synthroid, Protonix, Seroquel. SOCIAL HISTORY: No history of alcohol abuse. No history of smoking. PHYSICAL EXAMINATION: GENERAL: Comfortable in bed, in no acute distress. VITAL SIGNS: reviewed. HEENT: Pallor positive. NECK: No lymphadenopathy. CHEST: Air entry present and equal, bilateral. No added sound. CARDIOVASCULAR: S1, S2 normal. No murmur. No gallop. ABDOMEN: Soft, nontender. No rebound tenderness. No mass. No guarding. No rigidity. LABORATORY DATA: reviewed. ASSESSMENT: 1. Acute diverticulitis. 2. History of depression. 3. Leukocytosis. 4. Hypothyroidism. PLAN: She is tolerating liquids. Diffuse abdominal pain. Morphine 2 mg IV Q 4hr prn. DC toradol. CT abdomen pelvis with Po, IV contrast ordered. Scan reviewed. left sided extensive diverticulitis. diffuse colonic thickening right side. On IV antibiotics Zosyn. ID following. Surgery, ID following. Notes reviewed. encouraged ambulation. heparin 5000 BID for DVT prophylaxis. Leila Andrews MD Objective - Vital Signs/Intake and Output Vital Signs (last 24 hours): Temp Pulse Resp BP Pulse Ox 97.3 F L 80 20 158/103 H 99 07/26/18 14:00 07/26/18 14:00 07/26/18 14:00 07/26/18 14:00 07/26/18 14:00 Intake and Output: 07/26/18 07/27/18 18:59 06:59 Intake Total 460 240 Balance 460 240 - Medications Medications: Current Medications Alprazolam (Xanax) 0.5 mg PO HS PRN; Protocol PRN Reason: Insomnia Last Admin: 07/26/18 21:35 Dose: 0.5 mg Heparin Sodium (Porcine) (Heparin) 5,000 units SC Q12 KAREN; Protocol Last Admin: 07/26/18 21:34 Dose: 5,000 units Piperacillin Sod/Tazobactam Sod (Zosyn 3.375 In Ns 100ml) 100 mls @ 25 mls/hr IVPB Q8 KAREN; Protocol Stop: 07/31/18 11:27 Last Admin: 07/26/18 21:35 Dose: 25 mls/hr Sodium Chloride (Sodium Chloride 0.9%) 1,000 mls @ 80 mls/hr IV .[id number] [facility] Last Admin: 07/26/18 12:50 Dose: 80 mls/hr Levothyroxine Sodium (Synthroid) 75 mcg PO 0600 [facility] Last Admin: 07/26/18 05:27 Dose: 75 mcg Morphine Sulfate (Morphine) 2 mg IVP Q4H PRN PRN Reason: Pain, moderate (4-7) Pantoprazole Sodium (Protonix Ec Tab) 40 mg PO ACB [facility] Last Admin: 07/26/18 08:30 Dose: 40 mg Tramadol HCl (Ultram) 50 mg PO Q6 PRN PRN Reason: Pain, moderate (4-7) Venlafaxine HCl (Effexor Xr) 75 mg PO DAILY [facility] Last Admin: 07/26/18 10:33 Dose: Not Given - Labs Labs: 07/26/18 06:00 07/26/18 06:00
[2018-07-26] MEDS: Morphine 2 mg/ml ISec IVP PRN (22:57)
[2018-07-27] MEDS: Sodium Chloride 0.9% 1,000 ML IV SCH ×2 (06:19→14:24)
[2018-07-27] MEDS: Levothyroxine 75 MCG TAB PO SCH (06:19)
[2018-07-27] MEDS: Piperacillin/Tazobact 3.375 gm 100 ML IVPB SCH (06:24)
[2018-07-27 06:50] LABS: BASO # 0.02 K/mm3 (0.0-2.0); BASO % 0.3 % (0.0-3.0); EOS # 0.2 (0.0-0.7); EOS % 3.3 % (1.5-5.0); GRAN # 3.55 (1.4-6.5); GRAN % 53.6 % (50.0-68.0); LYMPH # 2.3 (1.2-3.4); LYMPH % 35.1 % (22.0-35.0); MEAN CELL VOLUME 85.1 fl (80.0-105.0); MEAN CORPUSCULAR HEMOGLOBIN 28.9 pg (25.0-35.0); MEAN CORPUSCULAR HGB CONC 33.9 g/dl (31.0-37.0); MEAN PLATELET VOLUME 9.5 fl (7.0-11.0); MONO # 0.5 (0.1-0.6); MONO % 7.7 % (1.0-6.0); RBC 4.5 10^6/uL (3.5-6.1); RED CELL DISTRIBUTION WIDTH 13.1 % (11.5-14.5); WHITE BLOOD COUNT 6.6 10^3/uL (4.5-11.0)
[2018-07-27 07:26] LABS: ALB/GLOB RATIO 1.2 (1.1-1.8); ALBUMIN 3.5 g/dL (3.0-4.8); ALT/SGPT 24 U/L (7-56); AST/SGOT 28 U/L (14-36); BLOOD UREA NITROGEN 3 mg/dL (7-21); CALCIUM 8.8 mg/dL (8.4-10.5); GFR NON-AFRICAN AMERICAN > 60
--- NOTE | 2018-07-27 07:41 | CP.PCM.PN ---
Subjective - Date & Time of Evaluation Date of Evaluation: 07/27/18 Time of Evaluation: 07:37 - Subjective Subjective: Surgery: Dr. To Patient with persistent discomfort in the LLQ. Denies n/v. Reports worsening diarrhea and decrease appetite. Objective - Vital Signs/Intake and Output Vital Signs (last 24 hours): Temp Pulse Resp BP Pulse Ox 98.5 F 76 20 150/96 H 97 07/26/18 22:43 07/26/18 22:43 07/26/18 22:43 07/26/18 22:43 07/26/18 22:43 Intake and Output: 07/27/18 07/27/18 06:59 18:59 Intake Total 240 Output Total 0 Balance 240 - Medications Medications: Current Medications Alprazolam (Xanax) 0.5 mg PO HS PRN; Protocol PRN Reason: Insomnia Last Admin: 07/26/18 21:35 Dose: 0.5 mg Heparin Sodium (Porcine) (Heparin) 5,000 units SC Q12 KAREN; Protocol Last Admin: 07/26/18 21:34 Dose: 5,000 units Piperacillin Sod/Tazobactam Sod (Zosyn 3.375 In Ns 100ml) 100 mls @ 25 mls/hr IVPB Q8 [facility]; Protocol Stop: 07/31/18 11:27 Last Admin: 07/27/18 06:24 Dose: 25 mls/hr Sodium Chloride (Sodium Chloride 0.9%) 1,000 mls @ 80 mls/hr IV .[id number] [facility] Last Admin: 07/27/18 06:19 Dose: 80 mls/hr Levothyroxine Sodium (Synthroid) 75 mcg PO 0600 [facility] Last Admin: 07/27/18 06:19 Dose: 75 mcg Morphine Sulfate (Morphine) 2 mg IVP Q4H PRN PRN Reason: Pain, moderate (4-7) Last Admin: 07/26/18 22:57 Dose: 2 mg Pantoprazole Sodium (Protonix Ec Tab) 40 mg PO ACB [facility] Last Admin: 07/26/18 08:30 Dose: 40 mg Tramadol HCl (Ultram) 50 mg PO Q6 PRN PRN Reason: Pain, moderate (4-7) Venlafaxine HCl (Effexor Xr) 75 mg PO DAILY [facility] Last Admin: 07/26/18 10:33 Dose: Not Given - Labs Labs: 07/27/18 06:00 07/27/18 06:00 - Constitutional Appears: Non-toxic, No Acute Distress - Head Exam Head Exam: ATRAUMATIC, NORMOCEPHALIC - Eye Exam Eye Exam: EOMI, Normal appearance - ENT Exam ENT Exam: Mucous Membranes Moist - Respiratory Exam Respiratory Exam: NORMAL BREATHING PATTERN. absent: Respiratory Distress - Cardiovascular Exam Cardiovascular Exam: REGULAR RHYTHM. absent: Tachycardia - GI/Abdominal Exam GI & Abdominal Exam: Soft, Tenderness (minimal tenderness in the LLQ). absent: Distended, Guarding, Rigid, Rebound Assessment and Plan - Assessment and Plan (Free Text) Assessment: 58 y/o female w/ acute noncomplicated diverticulitis Plan: -cont diet -consider switching abx, patient with stable diverticulitis on CT but now with diffuse colitis -rec stool cultures and CDiff for colitis and worsening diarrhea -OOB -IS use -no surgical intervention at this time AKWhite PGY4
[2018-07-27] MEDS: Pantoprazole 40 mg EC Tab PO SCH (07:59)
[2018-07-27] MEDS: Venlafaxine 75 mg ER Cap PO SCH (09:35)
--- NOTE | 2018-07-27 09:38 | CP.PCM.PN ---
<MatildecarolCarlos Alberto - Last Filed: 07/27/18 09:34> Subjective - Date & Time of Evaluation Date of Evaluation: 07/27/18 Time of Evaluation: 09:34 - Subjective Subjective: Patient states she is felling better today. Tolerating diet. No complaints at this time. Objective - Vital Signs/Intake and Output Vital Signs (last 24 hours): Temp Pulse Resp BP Pulse Ox 98.3 F 69 18 158/102 H 95 07/27/18 06:00 07/27/18 06:00 07/27/18 06:00 07/27/18 06:00 07/27/18 06:00 Intake and Output: 07/27/18 07/27/18 06:59 18:59 Intake Total 240 Output Total 0 Balance 240 - Medications Medications: Current Medications Acetaminophen (Tylenol 325mg Tab) 650 mg PO Q6H PRN PRN Reason: Headache Last Admin: 07/27/18 08:39 Dose: 650 mg Alprazolam (Xanax) 0.5 mg PO HS PRN; Protocol PRN Reason: Insomnia Last Admin: 07/26/18 21:35 Dose: 0.5 mg Heparin Sodium (Porcine) (Heparin) 5,000 units SC Q12 KAREN; Protocol Last Admin: 07/26/18 21:34 Dose: 5,000 units Piperacillin Sod/Tazobactam Sod (Zosyn 3.375 In Ns 100ml) 100 mls @ 25 mls/hr IVPB Q8 KAREN; Protocol Stop: 07/31/18 11:27 Last Admin: 07/27/18 06:24 Dose: 25 mls/hr Sodium Chloride (Sodium Chloride 0.9%) 1,000 mls @ 80 mls/hr IV .[id number] [facility] Last Admin: 07/27/18 06:19 Dose: 80 mls/hr Potassium Chloride (Potassium Chloride 20 Meq/100 Ml) 20 meq in 100 mls @ 50 mls/hr IVPB Q2H [facility] Stop: 07/27/18 12:29 Last Admin: 07/27/18 08:39 Dose: 50 mls/hr Levothyroxine Sodium (Synthroid) 75 mcg PO 0600 [facility] Last Admin: 07/27/18 06:19 Dose: 75 mcg Morphine Sulfate (Morphine) 2 mg IVP Q4H PRN PRN Reason: Pain, moderate (4-7) Last Admin: 07/26/18 22:57 Dose: 2 mg Pantoprazole Sodium (Protonix Ec Tab) 40 mg PO ACB [facility] Last Admin: 07/27/18 07:59 Dose: 40 mg Tramadol HCl (Ultram) 50 mg PO Q6 PRN PRN Reason: Pain, moderate (4-7) Venlafaxine HCl (Effexor Xr) 75 mg PO DAILY [facility] Last Admin: 07/26/18 10:33 Dose: Not Given - Labs Labs: 07/27/18 06:00 07/27/18 06:00 - Constitutional Appears: Non-toxic, No Acute Distress - Head Exam Head Exam: NORMAL INSPECTION, NORMOCEPHALIC - Eye Exam Eye Exam: EOMI, Normal appearance - ENT Exam ENT Exam: Mucous Membranes Moist, Normal Exam - Respiratory Exam Respiratory Exam: Clear to Ausculation Bilateral, NORMAL BREATHING PATTERN - GI/Abdominal Exam GI & Abdominal Exam: Soft, Normal Bowel Sounds. absent: Tenderness - Psychiatric Exam Psychiatric exam: Normal Affect, Normal Mood - Skin Skin Exam: Dry, Normal Color Assessment and Plan - Assessment and Plan (Free Text) Assessment: 58 year old female with PMH of Hypothyroidism, MDD, and Anxiety presenting with abdominal pain and diarrhea. Active treatment of intractable abdominal pain 2/[address] A/P 07/21/18. Endorses prior EGD and colonoscopy at least five years ago showing PUD and normal colon without polyps. Plan: -CT A/P w/ PO contrast 07/26/18 - with acute diverticulitis of the sigmoid plus diffuse colitis of the right colon and rectum -on Zosyn day 6 -supportive care- pain control, anti-emetics -will follow clinical course -Advancing diet per surgical team -Patient has been advised to have colonoscopy in 4-6weeks. She would prefer to see Dr. Marie who she has seen in the past. <Deo Jeffries V - Last Filed: 07/27/18 23:28> Objective - Vital Signs/Intake and Output Vital Signs (last 24 hours): Temp Pulse Resp BP Pulse Ox 98.3 F 67 20 154/82 H 97 07/27/18 22:00 07/27/18 22:00 07/27/18 22:00 07/27/18 22:00 07/27/18 22:00 Intake and Output: 07/27/18 07/28/18 18:59 06:59 Intake Total 0 Balance 0 - Medications Medications: Current Medications Acetaminophen (Tylenol 325mg Tab) 650 mg PO Q6H PRN PRN Reason: Headache Last Admin: 07/27/18 08:39 Dose: 650 mg Alprazolam (Xanax) 0.5 mg PO HS PRN; Protocol PRN Reason: Insomnia Last Admin: 07/27/18 21:56 Dose: 0.5 mg Heparin Sodium (Porcine) (Heparin) 5,000 units SC Q12 KAREN; Protocol Last Admin: 07/27/18 21:43 Dose: 5,000 units Sodium Chloride (Sodium Chloride 0.9%) 1,000 mls @ 80 mls/hr IV .[id number] [facility] Last Admin: 07/27/18 14:24 Dose: 80 mls/hr Levothyroxine Sodium (Synthroid) 75 mcg PO 0600 [facility] Last Admin: 07/27/18 06:19 Dose: 75 mcg Magnesium Citrate (Citrate Of Mag) 300 ml PO ONCE ONE Stop: 07/28/18 06:01 Morphine Sulfate (Morphine) 2 mg IVP Q4H PRN PRN Reason: Pain, moderate (4-7) Last Admin: 07/27/18 21:55 Dose: 2 mg Pantoprazole Sodium (Protonix Ec Tab) 40 mg PO ACB [facility] Last Admin: 07/27/18 07:59 Dose: 40 mg Tramadol HCl (Ultram) 50 mg PO Q6 PRN PRN Reason: Pain, moderate (4-7) Venlafaxine HCl (Effexor Xr) 75 mg PO DAILY [facility] Last Admin: 07/27/18 09:35 Dose: 75 mg - Labs Labs: 07/27/18 06:00 07/27/18 06:00 Attending/Attestation - Attestation I have personally seen and examined this patient.: Yes I have fully participated in the care of the patient.: Yes I have reviewed all pertinent clinical information, including history, physical exam and plan: Yes Notes (Text): This is an addendum to GI progress report dictated by the GI Fellow.The patient was seen and examined earlier. Medical records, lab studies, imagings were reviewed. Last 24 hours events reviewed. Agreed with the above treatment plan as outlined in GI Fellow 's notes with the addition of the following 07/27/18 23:28
--- NOTE | 2018-07-27 10:31 | CP.PCM.PN ---
Subjective - Date & Time of Evaluation Date of Evaluation: 07/27/18 Time of Evaluation: 10:30 - Subjective Subjective: HISTORY OF PRESENT ILLNESS: Ms. Bull is a 58-year-old female, admitted to the hospital with diverticulitis. She had elevated white count on admission. She also has history of anxiety, depression and hypothyroidism, history of GERD. No fever. No chills. No rigors. Currently, on IV antibiotic as per ID. tolerating liquids. abdominal pain decreased. No N/V oral intake improved. REVIEW OF SYSTEMS: As per HPI. Rest of 12-point review of systems reviewed negative. PAST MEDICAL HISTORY: Diverticulitis, anxiety, depression, hypothyroidism, GERD. PAST SURGICAL HISTORY: None. ALLERGIES: TO FISH. MEDICATIONS: Home medications, Effexor, Synthroid, Protonix, Seroquel. SOCIAL HISTORY: No history of alcohol abuse. No history of smoking. PHYSICAL EXAMINATION: GENERAL: Comfortable in bed, in no acute distress. VITAL SIGNS: reviewed. HEENT: Pallor positive. NECK: No lymphadenopathy. CHEST: Air entry present and equal, bilateral. No added sound. CARDIOVASCULAR: S1, S2 normal. No murmur. No gallop. ABDOMEN: Soft, nontender. No rebound tenderness. No mass. No guarding. No rigidity. LABORATORY DATA: reviewed. ASSESSMENT: 1. Acute diverticulitis. 2. History of depression. 3. Leukocytosis. 4. Hypothyroidism. PLAN: She is tolerating liquids. Diffuse abdominal pain. Morphine 2 mg IV Q 4hr prn. DC toradol. CT abdomen pelvis with Po, IV contrast ordered. Scan reviewed. left sided extensive diverticulitis. diffuse colonic thickening right side. On IV antibiotics Zosyn. ID Dr. Macedo following. . Surgery, ID following. Notes reviewed. encouraged ambulation. heparin 5000 BID for DVT prophylaxis. K declined to 2.7, two 10 meq riders to be given today. labs ordered for am. Leila Andrews MD Objective - Vital Signs/Intake and Output Vital Signs (last 24 hours): Temp Pulse Resp BP Pulse Ox 98.3 F 69 18 158/102 H 95 07/27/18 06:00 07/27/18 06:00 07/27/18 06:00 07/27/18 06:00 07/27/18 06:00 Intake and Output: 07/27/18 07/27/18 06:59 18:59 Intake Total 240 Output Total 0 Balance 240 - Medications Medications: Current Medications Acetaminophen (Tylenol 325mg Tab) 650 mg PO Q6H PRN PRN Reason: Headache Last Admin: 07/27/18 08:39 Dose: 650 mg Alprazolam (Xanax) 0.5 mg PO HS PRN; Protocol PRN Reason: Insomnia Last Admin: 07/26/18 21:35 Dose: 0.5 mg Heparin Sodium (Porcine) (Heparin) 5,000 units SC Q12 [facility]AREN; Protocol Last Admin: 07/27/18 09:35 Dose: 5,000 units Piperacillin Sod/Tazobactam Sod (Zosyn 3.375 In Ns 100ml) 100 mls @ 25 mls/hr IVPB Q8 [facility]EN; Protocol Stop: 07/31/18 11:27 Last Admin: 07/27/18 06:24 Dose: 25 mls/hr Sodium Chloride (Sodium Chloride 0.9%) 1,000 mls @ 80 mls/hr IV .[id number] [facility] Last Admin: 07/27/18 06:19 Dose: 80 mls/hr Potassium Chloride (Potassium Chloride 20 Meq/100 Ml) 20 meq in 100 mls @ 50 mls/hr IVPB Q2H [facility] Stop: 07/27/18 12:29 Last Admin: 07/27/18 08:39 Dose: 50 mls/hr Levothyroxine Sodium (Synthroid) 75 mcg PO 0600 [facility] Last Admin: 07/27/18 06:19 Dose: 75 mcg Morphine Sulfate (Morphine) 2 mg IVP Q4H PRN PRN Reason: Pain, moderate (4-7) Last Admin: 07/26/18 22:57 Dose: 2 mg Pantoprazole Sodium (Protonix Ec Tab) 40 mg PO ACB [facility] Last Admin: 07/27/18 07:59 Dose: 40 mg Tramadol HCl (Ultram) 50 mg PO Q6 PRN PRN Reason: Pain, moderate (4-7) Venlafaxine HCl (Effexor Xr) 75 mg PO DAILY [facility] Last Admin: 07/27/18 09:35 Dose: 75 mg - Labs Labs: 07/27/18 06:00 07/27/18 06:00
[2018-07-27] MEDS: Potassium Chloride 20 mEq ER Tab PO SCH ×2 (14:23→17:37)
[2018-07-27] MEDS: Morphine 2 mg/ml ISec IVP PRN ×2 (14:45→21:55)
--- NOTE | 2018-07-27 17:10 | PN ---
DATE: 07/27/2018 SUBJECTIVE: The patient is in bed, in no acute distress, nontoxic. PHYSICAL EXAMINATION: VITAL SIGNS: Temperature is 98, blood pressure is 158/100, respiratory rate of 20. HEENT: Unremarkable. NECK: Supple. LUNGS: Have decreased breath sounds, HEART: Normal S1 and S2. LABORATORY DATA: Reveals a white count of 6.6, hemoglobin of 13, platelets of 306. Chemistries reveal a BUN of 3, creatinine of 0.8. Urinalysis is noted. HIV is negative. Microbiology reveals the blood cultures are negative. Stool salmonella is negative. The patient's C. diff is negative. Repeat CAT scan reveals that the patient has marked wall thickening involving the portion of the right colon and cecum and transverse colon and rectosigmoid colon appear consistent with colitis and extensive diverticulitis involving the left colon with marked swelling. ASSESSMENT AND PLAN: A 58-year-old with history of diverticulitis, anxiety, hypothyroidism, depression, admitted with acute extensive sigmoid colon diverticulitis, failed as outpatient. Currently on Zosyn, still with some pain. Continue with the antibiotics intravenously and we will follow the patient clinically. Dr. To's note is reviewed. We will follow closely. Kosta Henriquez MD
[2018-07-28] MEDS: Sodium Chloride 0.9% 1,000 ML IV SCH (05:27)
[2018-07-28] MEDS: Levothyroxine 75 MCG TAB PO SCH (05:31)
[2018-07-28] MEDS ORDERED: Magnesium Citrate Oral SOL (300 ml) PO ONE (06:00)
[2018-07-28 07:10] LABS: BASO # 0.02 K/mm3 (0.0-2.0); BASO % 0.3 % (0.0-3.0); EOS # 0.3 (0.0-0.7); EOS % 3.3 % (1.5-5.0); GRAN # 4.35 (1.4-6.5); GRAN % 57.9 % (50.0-68.0); HEMOGLOBIN 13.4 g/dL (12.0-16.0); LYMPH # 2.4 (1.2-3.4); LYMPH % 31.5 % (22.0-35.0); MEAN CELL VOLUME 86.5 fl (80.0-105.0); MEAN CORPUSCULAR HEMOGLOBIN 28.8 pg (25.0-35.0); MEAN CORPUSCULAR HGB CONC 33.3 g/dl (31.0-37.0); MEAN PLATELET VOLUME 9.7 fl (7.0-11.0); MONO # 0.5 (0.1-0.6); RBC 4.66 10^6/uL (3.5-6.1); RED CELL DISTRIBUTION WIDTH 13.2 % (11.5-14.5); WHITE BLOOD COUNT 7.5 10^3/uL (4.5-11.0)
[2018-07-28 07:28] LABS: ALB/GLOB RATIO 1.2 (1.1-1.8); ALBUMIN 3.8 g/dL (3.0-4.8); ALT/SGPT 28 U/L (7-56); AST/SGOT 47 U/L (14-36); BLOOD UREA NITROGEN 3 mg/dL (7-21); CALCIUM 9.4 mg/dL (8.4-10.5); GFR NON-AFRICAN AMERICAN > 60
--- NOTE | 2018-07-28 07:31 | PN ---
DATE: 07/26/2018 SUBJECTIVE: The patient is doing better. However, still having pain in the left lower quadrant. PHYSICAL EXAMINATION: VITAL SIGNS: Although last seen on exam; temperature is 98, blood pressure is 130/90, respiratory rate 20, heart rate of 64. HEENT: Unremarkable. NECK: Supple. LUNGS: Have decreased breath sounds. HEART: Normal S1, S2. ABDOMEN: Soft, nontender. LABORATORY EXAMINATION: Reveals the patient's white count of 6.4, hemoglobin of 12. Chemistries are noted and urinalysis is noted and serology is noted. HIV is negative. Microbiology reveals the blood cultures are no growth at 4 days and stool for ova and parasites negative and C. diff is negative. IMPRESSION AND PLAN: A 58-year-old female with diverticulitis, anxiety, hypothyroidism, depression, admitted with acute diverticulitis, failed as an outpatient antibiotic therapy, currently on Zosyn, improving slowly and Dr. Jeffries's progress note from yesterday is reviewed. The patient tolerated her diet well. Consider repeating CAT scan with IV and p.o. contrast. Concerned about micro perforations and of course a colonoscopy in approximately 6 weeks to 8 weeks. Kosta Henriquez MD
--- NOTE | 2018-07-28 07:38 | CP.PCM.PN ---
Subjective - Date & Time of Evaluation Date of Evaluation: 07/28/18 Time of Evaluation: 07:38 - Subjective Subjective: PGY-1 Surgery Progress Note for Dr. To Patient seen and examined at bedside. No acute events overnight per nursing. Patient kept NPO overnight for possible sigmoidoscopy today. Okay to advance diet a surgical perspective, pending GI procedure. Patient has no new complaints, states her abdominal pain is improving. Patient still having diarrhea. Patient denies nausea, vomiting, bloody stools, chest pain, shortness of breath, dizziness. Objective - Vital Signs/Intake and Output Vital Signs (last 24 hours): Temp Pulse Resp BP Pulse Ox 98.3 F 67 20 154/82 H 97 07/27/18 22:00 07/27/18 22:00 07/27/18 22:00 07/27/18 22:00 07/27/18 22:00 Intake and Output: 07/28/18 07/28/18 06:59 18:59 Intake Total 0 Balance 0 - Medications Medications: Current Medications Acetaminophen (Tylenol 325mg Tab) 650 mg PO Q6H PRN PRN Reason: Headache Last Admin: 07/27/18 08:39 Dose: 650 mg Alprazolam (Xanax) 0.5 mg PO HS PRN; Protocol PRN Reason: Insomnia Last Admin: 07/27/18 21:56 Dose: 0.5 mg Heparin Sodium (Porcine) (Heparin) 5,000 units SC Q12 KAREN; Protocol Last Admin: 07/27/18 21:43 Dose: 5,000 units Sodium Chloride (Sodium Chloride 0.9%) 1,000 mls @ 80 mls/hr IV .[id number] [facility] Last Admin: 07/28/18 05:27 Dose: 80 mls/hr Piperacillin Sod/Tazobactam Sod (Zosyn 3.375 In Ns 100ml) 100 mls @ 25 mls/hr IVPB Q8 [facility]EN; Protocol Stop: 07/28/18 17:59 Levothyroxine Sodium (Synthroid) 75 mcg PO 0600 [facility] Last Admin: 07/28/18 05:31 Dose: 75 mcg Morphine Sulfate (Morphine) 2 mg IVP Q4H PRN PRN Reason: Pain, moderate (4-7) Last Admin: 07/27/18 21:55 Dose: 2 mg Pantoprazole Sodium (Protonix Ec Tab) 40 mg PO ACB [facility] Last Admin: 07/27/18 07:59 Dose: 40 mg Tramadol HCl (Ultram) 50 mg PO Q6 PRN PRN Reason: Pain, moderate (4-7) Venlafaxine HCl (Effexor Xr) 75 mg PO DAILY [facility] Last Admin: 07/27/18 09:35 Dose: 75 mg - Labs Labs: 07/28/18 06:20 07/28/18 06:20 - Constitutional Appears: Non-toxic, No Acute Distress - Head Exam Head Exam: ATRAUMATIC, NORMOCEPHALIC - Eye Exam Eye Exam: EOMI, Normal appearance - Neck Exam Neck Exam: Full ROM - Respiratory Exam Respiratory Exam: Clear to Ausculation Bilateral. absent: Rhonchi, Wheezes - Cardiovascular Exam Cardiovascular Exam: REGULAR RHYTHM, +S1, +S2 - GI/Abdominal Exam GI & Abdominal Exam: Soft, Tenderness (Minimal LLQ tenderness to palpation). absent: Distended, Guarding, Rebound - Neurological Exam Neurological Exam: Alert, Awake, Oriented x3 - Psychiatric Exam Psychiatric exam: Normal Affect, Normal Mood Assessment and Plan - Assessment and Plan (Free Text) Assessment: 58 y/o female w/ acute noncomplicated diverticulitis Plan - LLQ pain improving - On Zosyn, 2 bags administered this morning. - Continue IV antibiotics per ID - Okay to advance diet from a surgical perspective. Advance as tolerated per GI. - Will follow up with GI concerning possible GI procedure - F/u repeat stool cultures, C Diff toxin Mike Gomez, PGY-1
[2018-07-28] MEDS ORDERED: Piperacillin/Tazobact 3.375 gm 100 ML IVPB SCH (07:45)
[2018-07-28 08:31] LABS: INR 1.12; PROTHROMBIN TIME 12.9 SECONDS (9.4-12.5)
[2018-07-28] MEDS: Pantoprazole 40 mg EC Tab PO SCH (09:34)
[2018-07-28] MEDS: Venlafaxine 75 mg ER Cap PO SCH (09:34)
[2018-07-28] MEDS: Morphine 2 mg/ml ISec IVP PRN ×2 (09:36→21:24)
--- NOTE | 2018-07-28 10:35 | CP.PCM.PN ---
<Carlton Calles - Last Filed: 07/28/18 18:50> Subjective - Date & Time of Evaluation Date of Evaluation: 07/28/18 Time of Evaluation: 08:00 - Subjective Subjective: Progress Note for Dr. Alcocer service Patient seen and examined at bedside. No acute events reported overnight. Over the weekend, continued to have persisting abdominal pain, CT abdomen/pelvis was notable for diverticulitis and now diffuse colitis. GI planning for possible sigmoidoscopy today. Objective - Vital Signs/Intake and Output Vital Signs (last 24 hours): Temp Pulse Resp BP Pulse Ox 97.9 F 67 18 149/79 94 L 07/28/18 06:00 07/28/18 06:00 07/28/18 06:00 07/28/18 06:00 07/28/18 06:00 Intake and Output: 07/28/18 07/28/18 06:59 18:59 Intake Total 0 Balance 0 - Medications Medications: Current Medications Acetaminophen (Tylenol 325mg Tab) 650 mg PO Q6H PRN PRN Reason: Headache Last Admin: 07/27/18 08:39 Dose: 650 mg Alprazolam (Xanax) 0.5 mg PO HS PRN; Protocol PRN Reason: Insomnia Last Admin: 07/27/18 21:56 Dose: 0.5 mg Heparin Sodium (Porcine) (Heparin) 5,000 units SC Q12 KAREN; Protocol Last Admin: 07/28/18 09:34 Dose: 5,000 units Sodium Chloride (Sodium Chloride 0.9%) 1,000 mls @ 80 mls/hr IV .[id number] [facility] Last Admin: 07/28/18 05:27 Dose: 80 mls/hr Piperacillin Sod/Tazobactam Sod (Zosyn 3.375 In Ns 100ml) 100 mls @ 25 mls/hr IVPB Q8 [facility]EN; Protocol Stop: 07/28/18 17:59 Levothyroxine Sodium (Synthroid) 75 mcg PO 0600 [facility] Last Admin: 07/28/18 05:31 Dose: 75 mcg Morphine Sulfate (Morphine) 2 mg IVP Q4H PRN PRN Reason: Pain, moderate (4-7) Last Admin: 07/28/18 09:36 Dose: 2 mg Pantoprazole Sodium (Protonix Ec Tab) 40 mg PO ACB [facility] Last Admin: 07/28/18 09:34 Dose: 40 mg Tramadol HCl (Ultram) 50 mg PO Q6 PRN PRN Reason: Pain, moderate (4-7) Venlafaxine HCl (Effexor Xr) 75 mg PO DAILY [facility] Last Admin: 07/28/18 09:34 Dose: 75 mg - Labs Labs: 07/28/18 06:20 07/28/18 06:20 PT 12.9 SECONDS (9.4-12.5) H 07/28/18 08:15 INR 1.12 07/28/18 08:15 - Additional Findings Additional findings: - Constitutional Appears: Non-toxic, No Acute Distress - Head Exam Head Exam: ATRAUMATIC, NORMAL INSPECTION, NORMOCEPHALIC - Eye Exam Eye Exam: EOMI, Normal appearance. absent: Conjunctival injection, Scleral icterus Pupil Exam: absent: Irregular, Unequal - ENT Exam ENT Exam: Mucous Membranes Moist - Neck Exam Neck exam: Positive for: Full Rom. Negative for: Lymphadenopathy - Respiratory Exam Respiratory Exam: Clear to Auscultation Bilateral, NORMAL BREATHING PATTERN. absent: Accessory Muscle Use, Chest Wall Tenderness, Decreased Breath Sounds, Rales, Rhonchi, Wheezes - Cardiovascular Exam Cardiovascular Exam: REGULAR RHYTHM, RRR, +S1, +S2. absent: Bradycardia, Tachy cardia, Irregular Rhythm, JVD, +S4 - GI/Abdominal Exam GI & Abdominal Exam: Guarding, Normal Bowel Sounds, Soft, Tenderness (mild epigastric tenderness, moderate left upper/lower quadrant tenderness). absent: Diminished Bowel Sounds, Distended, Firm, Hyperactive Bowel Sounds, Hypoactive Bowel Sounds, Rebound, Rigid - Extremities Exam Extremities exam: Positive for: normal capillary refill, normal inspection, pedal pulses present. Negative for: calf tenderness, pedal edema, tenderness - Back Exam Back exam: absent: CVA tenderness (L), CVA tenderness (R) - Neurological Exam awake and alert, following all commands, moving all extremities - Psychiatric Exam Psychiatric exam: Normal Affect and Mood - Skin Skin Exam: Dry, Intact, Normal Color, Warm Assessment and Plan - Assessment and Plan (Free Text) Assessment: This is a 58 yo F with PMH of Hypothyroidism, Asthma, MDD (with prior suicide attempt), and Anxiety who sent to [facility] by PMD for persisting left lower quadrant abdominal pain x3 weeks. She was admitted for persisting diverticulitis, likely failed outpatient antibiotic treatment. Now with diffuse colitis despite IV abx and liquid diet, pending possible sigmoidoscopy today by GI. Plan: 1) Acute diverticulitis + diffuse colitis -mild-moderate left sided pain persisting -Repeat CT abd/pelvis over the weekend concerning for diffuse colitis in addition to acute diverticulitis -GI and Surgery consulted, appreciate their recs Surgery: continue IV abx, advance diet as tolerated, f/u C diff test (was negative) GI: NPO overnight, pending possible sigmoidoscopy -ID consulted for failed outpatient abx regimen, appreciate their recs; continue Zosyn, stool cx negative, HIV testing negative -blood cx x2 negative at 5 days, urine cx negative, C diff negative, stool cx negative -pain control as per surgery/GI 2) Hypothyroid -continue home synthroid Dispo: Pending sigmodoscopy Ppx: SCDs for DVT, Protonix for GI Reviewed and discussed with attending, Dr. Alcocer <Jason Alcocer S - Last Filed: 07/28/18 21:19> Objective - Vital Signs/Intake and Output Vital Signs (last 24 hours): Temp Pulse Resp BP Pulse Ox 97.6 F 71 14 159/82 H 100 07/28/18 16:10 07/28/18 16:10 07/28/18 16:10 07/28/18 16:10 07/28/18 16:10 Intake and Output: 07/28/18 07/29/18 18:59 06:59 Intake Total 540 Balance 540 - Medications Medications: Current Medications Acetaminophen (Tylenol 325mg Tab) 650 mg PO Q6H PRN PRN Reason: Headache Last Admin: 07/28/18 20:13 Dose: 650 mg Alprazolam (Xanax) 0.5 mg PO HS PRN; Protocol PRN Reason: Insomnia Last Admin: 07/27/18 21:56 Dose: 0.5 mg Heparin Sodium (Porcine) (Heparin) 5,000 units SC Q12 KAREN; Protocol Last Admin: 07/28/18 10:00 Dose: Not Given Sodium Chloride (Sodium Chloride 0.9%) 1,000 mls @ 80 mls/hr IV .[id number] [facility] Last Admin: 07/28/18 05:27 Dose: 80 mls/hr Sodium Chloride (Sodium Chloride 0.9%) 1,000 mls @ 100 mls/hr IV .Q10H KAREN Levothyroxine Sodium (Synthroid) 75 mcg PO 0600 [facility] Last Admin: 07/28/18 05:31 Dose: 75 mcg Morphine Sulfate (Morphine) 2 mg IVP Q4H PRN PRN Reason: Pain, moderate (4-7) Last Admin: 07/28/18 09:36 Dose: 2 mg Pantoprazole Sodium (Protonix Ec Tab) 40 mg PO ACB [facility] Last Admin: 07/28/18 09:34 Dose: 40 mg Tramadol HCl (Ultram) 50 mg PO Q6 PRN PRN Reason: Pain, moderate (4-7) Venlafaxine HCl (Effexor Xr) 75 mg PO DAILY [facility] Last Admin: 07/28/18 09:34 Dose: 75 mg - Labs Labs: 07/28/18 06:20 07/28/18 06:20 PT 12.9 SECONDS (9.4-12.5) H 07/28/18 08:15 INR 1.12 07/28/18 08:15 Assessment and Plan - Assessment and Plan (Free Text) Plan: Pt seen and examined. I have reviewed the note of the nuclear medicine medical director and agree with it. I have discussed the assessment and plan with the resident. I have reviewed the patient's labs and medications. Pt with acute diverticulitis. She had repeat CT that I reviewed. I spoke to ID and no changes in Abx are needed. Zosyn should be broad enough coverage. Pt is on synthroid for Hypothyroidism. She is to have Sigmoidoscopy. GI is following
[2018-07-28] MEDS ORDERED: Propofol 10 mg/ml Inj (20 ML) ONE (15:20)
[2018-07-28] MEDS ORDERED: Lidocaine PF 2% (5 ml) Inj (For Cardiac Arrhy) ONE (15:20)
[2018-07-29] MEDS: Levothyroxine 75 MCG TAB PO SCH (05:36)
[2018-07-29] MEDS: Sodium Chloride 0.9% 1,000 ML IV SCH ×2 (06:25→14:50)
[2018-07-29] MEDS ORDERED: Piperacillin/Tazobact 3.375 gm 100 ML IVPB SCH (06:30)
--- NOTE | 2018-07-29 07:20 | CP.PCM.PN ---
<Carlton Calles - Last Filed: 07/29/18 20:28> Subjective - Date & Time of Evaluation Date of Evaluation: 07/29/18 Time of Evaluation: 07:30 - Subjective Subjective: Progress Note for Dr. Alcocer service Patient seen and examined at bedside. No acute events reported overnight. S/p sigmoidoscopy with biopsy as per GI; as per GI, normal appearing mucousa on scope. Objective - Vital Signs/Intake and Output Vital Signs (last 24 hours): Temp Pulse Resp BP Pulse Ox 98.4 F 72 18 146/91 H 94 L 07/28/18 23:07 07/28/18 23:07 07/28/18 23:07 07/28/18 23:07 07/28/18 23:07 Intake and Output: 07/29/18 07/29/18 06:59 18:59 Intake Total 1080 Balance 1080 - Medications Medications: Current Medications Acetaminophen (Tylenol 325mg Tab) 650 mg PO Q6H PRN PRN Reason: Headache Last Admin: 07/28/18 20:13 Dose: 650 mg Alprazolam (Xanax) 0.5 mg PO HS PRN; Protocol PRN Reason: Insomnia Last Admin: 07/29/18 01:23 Dose: 0.5 mg Heparin Sodium (Porcine) (Heparin) 5,000 units SC Q12 [facility]; Protocol Last Admin: 07/28/18 21:23 Dose: 5,000 units Sodium Chloride (Sodium Chloride 0.9%) 1,000 mls @ 100 mls/hr IV .Q10H [facility] Last Admin: 07/29/18 06:25 Dose: 100 mls/hr Piperacillin Sod/Tazobactam Sod (Zosyn 3.375 In Ns 100ml) 100 mls @ 25 mls/hr IVPB Q8 [facility]; Protocol Levothyroxine Sodium (Synthroid) 75 mcg PO 0600 [facility] Last Admin: 07/29/18 05:36 Dose: 75 mcg Morphine Sulfate (Morphine) 2 mg IVP Q4H PRN PRN Reason: Pain, moderate (4-7) Last Admin: 07/28/18 21:24 Dose: 2 mg Pantoprazole Sodium (Protonix Ec Tab) 40 mg PO ACB [facility] Last Admin: 07/28/18 09:34 Dose: 40 mg Tramadol HCl (Ultram) 50 mg PO Q6 PRN PRN Reason: Pain, moderate (4-7) Venlafaxine HCl (Effexor Xr) 75 mg PO DAILY [facility] Last Admin: 07/28/18 09:34 Dose: 75 mg - Labs Labs: 07/28/18 06:20 07/28/18 06:20 PT 12.9 SECONDS (9.4-12.5) H 07/28/18 08:15 INR 1.12 07/28/18 08:15 - Additional Findings Additional findings: - Constitutional Appears: Non-toxic, No Acute Distress - Head Exam Head Exam: ATRAUMATIC, NORMAL INSPECTION, NORMOCEPHALIC - Eye Exam Eye Exam: EOMI, Normal appearance. absent: Conjunctival injection, Scleral icterus Pupil Exam: absent: Irregular, Unequal - ENT Exam ENT Exam: Mucous Membranes Moist - Neck Exam Neck exam: Positive for: Full Rom. Negative for: Lymphadenopathy - Respiratory Exam Respiratory Exam: Clear to Auscultation Bilateral, NORMAL BREATHING PATTERN. absent: Accessory Muscle Use, Chest Wall Tenderness, Decreased Breath Sounds, Rales, Rhonchi, Wheezes - Cardiovascular Exam Cardiovascular Exam: REGULAR RHYTHM, RRR, +S1, +S2. absent: Bradycardia, Tachycardia, Irregular Rhythm, JVD, +S4 - GI/Abdominal Exam GI & Abdominal Exam: Guarding, Normal Bowel Sounds, Soft, Tenderness (mild epigastric tenderness, moderate left upper/lower quadrant tenderness). absent: Diminished Bowel Sounds, Distended, Firm, Hyperactive Bowel Sounds, Hypoactive Bowel Sounds, Rebound, Rigid - Extremities Exam Extremities exam: Positive for: normal capillary refill, normal inspection, pedal pulses present. Negative for: calf tenderness, pedal edema, tenderness - Back Exam Back exam: absent: CVA tenderness (L), CVA tenderness (R) - Neurological Exam awake and alert, following all commands, moving all extremities - Psychiatric Exam Psychiatric exam: Normal Affect and Mood - Skin Skin Exam: Dry, Intact, Normal Color, Warm Assessment and Plan - Assessment and Plan (Free Text) Assessment: This is a 58 yo F with PMH of Hypothyroidism, Asthma, MDD (with prior suicide attempt), and Anxiety who sent to [facility] by PMD for persisting left lower quadrant abdominal pain x3 weeks. She was admitted for persisting diverticulitis, likely failed outpatient antibiotic treatment. Now with diffuse colitis, s/p sigmoidoscopy with biopsy. Continuing IV antibiotics, advancing diet as tolerated. Plan: 1) Acute diverticulitis + diffuse colitis -mild-moderate left sided pain persisting -Repeat CT abd/pelvis over the weekend concerning for diffuse colitis in addition to acute diverticulitis -GI and Surgery consulted, appreciate their recs Surgery: continue IV abx, advance diet as tolerated, f/u C diff test (was negative) GI: s/p sigmoidoscopy, f/u path for biopsy results, advance diet as tolerated -ID consulted for failed outpatient abx regimen, appreciate their recs; continue Zosyn, stool cx negative, HIV testing negative -blood cx x2 negative at 5 days, urine cx negative, C diff negative, stool cx negative -pain control as per surgery/GI 2) Hypothyroid -continue home synthroid Dispo: Pending sigmodoscopy path, diet advancement as tolerated Ppx: SCDs for DVT, Protonix for GI Reviewed and discussed with attending, Dr. Alcocer <Jason Alcocer S - Last Filed: 07/29/18 20:44> Objective - Vital Signs/Intake and Output Vital Signs (last 24 hours): Temp Pulse Resp BP Pulse Ox 98.3 F 62 20 132/74 96 07/29/18 07:00 07/29/18 07:00 07/29/18 07:00 07/29/18 07:00 07/29/18 07:00 Intake and Output: 07/29/18 07/30/18 18:59 06:59 Intake Total 540 Balance 540 - Medications Medications: Current Medications Acetaminophen (Tylenol 325mg Tab) 650 mg PO Q6H PRN PRN Reason: Headache Last Admin: 07/28/18 20:13 Dose: 650 mg Alprazolam (Xanax) 0.5 mg PO HS PRN; Protocol PRN Reason: Insomnia Last Admin: 07/29/18 01:23 Dose: 0.5 mg Heparin Sodium (Porcine) (Heparin) 5,000 units SC Q12 [facility]; Protocol Last Admin: 07/29/18 09:37 Dose: Not Given Sodium Chloride (Sodium Chloride 0.9%) 1,000 mls @ 100 mls/hr IV .Q10H [facility] Last Admin: 07/29/18 14:50 Dose: 100 mls/hr Piperacillin Sod/Tazobactam Sod (Zosyn 3.375 In Ns 100ml) 100 mls @ 25 mls/hr IVPB Q8 [facility]; Protocol Last Admin: 07/29/18 14:54 Dose: 25 mls/hr Levothyroxine Sodium (Synthroid) 75 mcg PO 0600 [facility] Last Admin: 07/29/18 05:36 Dose: 75 mcg Morphine Sulfate (Morphine) 2 mg IVP Q4H PRN PRN Reason: Pain, moderate (4-7) Last Admin: 07/29/18 14:50 Dose: 2 mg Pantoprazole Sodium (Protonix Ec Tab) 40 mg PO ACB [facility] Last Admin: 07/29/18 09:36 Dose: 40 mg Tramadol HCl (Ultram) 50 mg PO Q6 PRN PRN Reason: Pain, moderate (4-7) Venlafaxine HCl (Effexor Xr) 75 mg PO DAILY [facility] Last Admin: 07/29/18 09:36 Dose: 75 mg - Labs Labs: 07/28/18 06:20 07/28/18 06:20 PT 12.9 SECONDS (9.4-12.5) H 07/28/18 08:15 INR 1.12 07/28/18 08:15 Assessment and Plan - Assessment and Plan (Free Text) Plan: Pt seen and examined. I have reviewed the note of the medical billing and coding specialist and agree with it. I have discussed the assessment and plan with the resident. I have reviewed the patient's labs and medications. Pt with acute diverticulitis. She had a sigmoidoscopy done yesterday. I did review the results. She will need her diet advanced. She is on Synthroid for her hypthroidism. No intervention by surgery is planned.
--- NOTE | 2018-07-29 07:43 | CP.PCM.PN ---
Subjective - Date & Time of Evaluation Date of Evaluation: 07/29/18 Time of Evaluation: 07:42 - Subjective Subjective: PGY-1 Surgery Progress Note for Dr. To Patient seen and examined at bedside. No acute events overnight per nursing. Abdominal pain continues to improve. Patient tolerating regular diet. Patient has no new complaints at this time. Objective - Vital Signs/Intake and Output Vital Signs (last 24 hours): Temp Pulse Resp BP Pulse Ox 98.4 F 72 18 146/91 H 94 L 07/28/18 23:07 07/28/18 23:07 07/28/18 23:07 07/28/18 23:07 07/28/18 23:07 Intake and Output: 07/29/18 07/29/18 06:59 18:59 Intake Total 1080 Balance 1080 - Medications Medications: Current Medications Acetaminophen (Tylenol 325mg Tab) 650 mg PO Q6H PRN PRN Reason: Headache Last Admin: 07/28/18 20:13 Dose: 650 mg Alprazolam (Xanax) 0.5 mg PO HS PRN; Protocol PRN Reason: Insomnia Last Admin: 07/29/18 01:23 Dose: 0.5 mg Heparin Sodium (Porcine) (Heparin) 5,000 units SC Q12 [facility]; Protocol Last Admin: 07/28/18 21:23 Dose: 5,000 units Sodium Chloride (Sodium Chloride 0.9%) 1,000 mls @ 100 mls/hr IV .Q10H [facility] Last Admin: 07/29/18 06:25 Dose: 100 mls/hr Piperacillin Sod/Tazobactam Sod (Zosyn 3.375 In Ns 100ml) 100 mls @ 25 mls/hr IVPB Q8 [facility]; Protocol Levothyroxine Sodium (Synthroid) 75 mcg PO 0600 [facility] Last Admin: 07/29/18 05:36 Dose: 75 mcg Morphine Sulfate (Morphine) 2 mg IVP Q4H PRN PRN Reason: Pain, moderate (4-7) Last Admin: 07/28/18 21:24 Dose: 2 mg Pantoprazole Sodium (Protonix Ec Tab) 40 mg PO ACB [facility] Last Admin: 07/28/18 09:34 Dose: 40 mg Tramadol HCl (Ultram) 50 mg PO Q6 PRN PRN Reason: Pain, moderate (4-7) Venlafaxine HCl (Effexor Xr) 75 mg PO DAILY [facility] Last Admin: 07/28/18 09:34 Dose: 75 mg - Labs Labs: 07/28/18 06:20 07/28/18 06:20 PT 12.9 SECONDS (9.4-12.5) H 07/28/18 08:15 INR 1.12 07/28/18 08:15 - Constitutional Appears: Non-toxic, No Acute Distress - Head Exam Head Exam: ATRAUMATIC, NORMOCEPHALIC - Eye Exam Eye Exam: EOMI, Normal appearance - Neck Exam Neck Exam: Full ROM - Respiratory Exam Respiratory Exam: Clear to Ausculation Bilateral. absent: Rhonchi, Wheezes - Cardiovascular Exam Cardiovascular Exam: REGULAR RHYTHM, +S1, +S2 - GI/Abdominal Exam GI & Abdominal Exam: Soft, Tenderness (Minimal LLQ tenderness to palpation). absent: Distended, Guarding, Rebound - Neurological Exam Neurological Exam: Alert, Awake, Oriented x3 - Psychiatric Exam Psychiatric exam: Normal Affect, Normal Mood Assessment and Plan - Assessment and Plan (Free Text) Assessment: 58 y/o female w/ acute noncomplicated diverticulitis Plan - LLQ pain improving - On Zosyn, continue IV antibiotics per ID - Diet advanced to regular diet per GI, patient tolerating - Follow up with GI results sigmoidoscopy w/ bx - C Diff negative, f/u repeat stool cultures Mike Gomez, PGY-1
[2018-07-29] MEDS: Pantoprazole 40 mg EC Tab PO SCH (09:36)
[2018-07-29] MEDS: Venlafaxine 75 mg ER Cap PO SCH (09:36)
--- NOTE | 2018-07-29 13:47 | US ---
PROCEDURE: Duplex ultrasound of the mesenteric arteries. HISTORY: Abdominal pain. Evaluate for mesenteric ischemia. PHYSICIAN(S): Lorne Saldivar MD. TECHNIQUE: Duplex sonography with color-flow Doppler was used to evaluate limited segments of the abdominal aorta and proximal segments of the mesenteric arteries. FINDINGS: Visualization of the origin of the celiac axis and SMA is adequate. The peak systolic velocity in the proximal celiac axis is 138cm/sec. This is consistent with a 0-49 percentstenosis of the proximal celiac axis. The peak systolic velocity in the proximal SMA is 125cm/sec. This is consistent with a 0 to 49% proximal SMA stenosis. The FAMILIA was not visualized and evaluated. IMPRESSION: 1. 0-49 percent proximal celiac axis stenosis. 2. 0 to 49% proximal SMA stenosis. 3. The FAMILIA was not visualized.
--- NOTE | 2018-07-29 13:53 | CP.PCM.PN ---
<KashClementine - Last Filed: 07/29/18 13:50> Subjective - Date & Time of Evaluation Date of Evaluation: 07/29/18 Time of Evaluation: 13:50 - Subjective Subjective: Gastroenterology Fellow/PGY6 Progress Note Patient tolerating regular diet. Notes abdominal pain is resolving. A 12-point review of systems negative except for as above. Objective - Vital Signs/Intake and Output Vital Signs (last 24 hours): Temp Pulse Resp BP Pulse Ox 98.3 F 62 20 132/74 96 07/29/18 07:00 07/29/18 07:00 07/29/18 07:00 07/29/18 07:00 07/29/18 07:00 Intake and Output: 07/29/18 07/29/18 06:59 18:59 Intake Total 1080 Balance 1080 - Medications Medications: Current Medications Acetaminophen (Tylenol 325mg Tab) 650 mg PO Q6H PRN PRN Reason: Headache Last Admin: 07/28/18 20:13 Dose: 650 mg Alprazolam (Xanax) 0.5 mg PO HS PRN; Protocol PRN Reason: Insomnia Last Admin: 07/29/18 01:23 Dose: 0.5 mg Heparin Sodium (Porcine) (Heparin) 5,000 units SC Q12 [facility]; Protocol Last Admin: 07/29/18 09:37 Dose: Not Given Sodium Chloride (Sodium Chloride 0.9%) 1,000 mls @ 100 mls/hr IV .Q10H [facility] Last Admin: 07/29/18 06:25 Dose: 100 mls/hr Piperacillin Sod/Tazobactam Sod (Zosyn 3.375 In Ns 100ml) 100 mls @ 25 mls/hr IVPB Q8 [facility]; Protocol Levothyroxine Sodium (Synthroid) 75 mcg PO 0600 [facility] Last Admin: 07/29/18 05:36 Dose: 75 mcg Morphine Sulfate (Morphine) 2 mg IVP Q4H PRN PRN Reason: Pain, moderate (4-7) Last Admin: 07/28/18 21:24 Dose: 2 mg Pantoprazole Sodium (Protonix Ec Tab) 40 mg PO ACB [facility] Last Admin: 07/29/18 09:36 Dose: 40 mg Tramadol HCl (Ultram) 50 mg PO Q6 PRN PRN Reason: Pain, moderate (4-7) Venlafaxine HCl (Effexor Xr) 75 mg PO DAILY [facility] Last Admin: 07/29/18 09:36 Dose: 75 mg - Labs Labs: 07/28/18 06:20 07/28/18 06:20 PT 12.9 SECONDS (9.4-12.5) H 07/28/18 08:15 INR 1.12 07/28/18 08:15 - Constitutional Appears: Non-toxic, No Acute Distress - Head Exam Head Exam: ATRAUMATIC, NORMOCEPHALIC - Eye Exam Eye Exam: EOMI, PERRL. absent: Scleral icterus Pupil Exam: PERRL. absent: Miosis, Mydriatic - ENT Exam ENT Exam: Mucous Membranes Moist, Normal Oropharynx - Neck Exam Neck Exam: Full ROM, Normal Inspection - Respiratory Exam Respiratory Exam: Clear to Ausculation Bilateral. absent: Rales, Rhonchi, Wheezes - Cardiovascular Exam Cardiovascular Exam: RRR, +S1, +S2. absent: Gallop, Rubs - GI/Abdominal Exam GI & Abdominal Exam: Soft, Tenderness, Normal Bowel Sounds. absent: Distended, Firm, Guarding, Rigid, Organomegaly, Rebound Additional comments: left federico-abdomen and RUQ discomfort - Extremities Exam Extremities Exam: Normal Inspection, Pedal Edema - Neurological Exam Neurological Exam: Alert, Awake - Psychiatric Exam Psychiatric exam: Normal Affect, Normal Mood - Skin Skin Exam: Dry, Intact, Normal Color, Warm Assessment and Plan - Assessment and Plan (Free Text) Assessment: 58 year old female with PMH of Hypothyroidism, MDD, and Anxiety presenting with abdominal pain and diarrhea. Active treatment of intractable abdominal pain 2/2 descending diverticulitis. Endorses prior EGD and colonoscopy at least five years ago showing PUD and normal colon without polyps. Plan: -POD1 (07/28) flexible sigmoidoscopy- normal appearing mucosa descending colon and mild edematous and congested rectal mucosa -pending biopsy pathology -low suspicion for IBD -on Zosyn -ID managing -on IVFs -supportive care- pain control, anti-emetics -will follow clinical course <Deo Jeffries V - Last Filed: 07/29/18 23:58> Objective - Vital Signs/Intake and Output Vital Signs (last 24 hours): Temp Pulse Resp BP Pulse Ox 98.2 F 65 18 154/93 H 96 07/29/18 23:19 07/29/18 23:19 07/29/18 23:19 07/29/18 23:19 07/29/18 23:19 Intake and Output: 07/29/18 07/30/18 18:59 06:59 Intake Total 540 Balance 540 - Medications Medications: Current Medications Acetaminophen (Tylenol 325mg Tab) 650 mg PO Q6H PRN PRN Reason: Headache Last Admin: 07/28/18 20:13 Dose: 650 mg Alprazolam (Xanax) 0.5 mg PO HS PRN; Protocol PRN Reason: Insomnia Last Admin: 07/29/18 01:23 Dose: 0.5 mg Heparin Sodium (Porcine) (Heparin) 5,000 units SC Q12 [facility]; Protocol Last Admin: 07/29/18 21:47 Dose: 5,000 units Sodium Chloride (Sodium Chloride 0.9%) 1,000 mls @ 100 mls/hr IV .Q10H [facility] Last Admin: 07/29/18 14:50 Dose: 100 mls/hr Piperacillin Sod/Tazobactam Sod (Zosyn 3.375 In Ns 100ml) 100 mls @ 25 mls/hr IVPB Q8 [facility]; Protocol Last Admin: 07/29/18 21:47 Dose: 25 mls/hr Levothyroxine Sodium (Synthroid) 75 mcg PO 0600 [facility] Last Admin: 07/29/18 05:36 Dose: 75 mcg Morphine Sulfate (Morphine) 2 mg IVP Q4H PRN PRN Reason: Pain, moderate (4-7) Last Admin: 07/29/18 21:56 Dose: 2 mg Pantoprazole Sodium (Protonix Ec Tab) 40 mg PO ACB [facility] Last Admin: 07/29/18 09:36 Dose: 40 mg Tramadol HCl (Ultram) 50 mg PO Q6 PRN PRN Reason: Pain, moderate (4-7) Venlafaxine HCl (Effexor Xr) 75 mg PO DAILY [facility] Last Admin: 07/29/18 09:36 Dose: 75 mg - Labs Labs: 07/28/18 06:20 07/28/18 06:20 PT 12.9 SECONDS (9.4-12.5) H 07/28/18 08:15 INR 1.12 07/28/18 08:15 Attending/Attestation - Attestation I have personally seen and examined this patient.: Yes I have fully participated in the care of the patient.: Yes I have reviewed all pertinent clinical information, including history, physical exam and plan: Yes Notes (Text): This is an addendum to GI progress report dictated by the GI Fellow.The patient was seen and examined earlier. Medical records, lab studies, imagings were reviewed. Last 24 hours events reviewed. Agreed with the above treatment plan as outlined in GI Fellow 's notes with the addition of the following Patient tolerating diet Discussed with the patient and she was pain better than beore Flexible sigmoidoscopy revealed nonspecific mild patchy scattered patchy,and multiple diverticula present no active colitis of the wrist except for mild erythema patchy multiple diverticula presentk clinically more in favour of Acute diveticulitis Continue antibiotics Tolerating diet Elective colonoscopy 07/29/18 23:47
[2018-07-29] MEDS: Morphine 2 mg/ml ISec IVP PRN ×2 (14:50→21:56)
[2018-07-29] MEDS: Piperacillin/Tazobact 3.375 gm 100 ML IVPB SCH ×3 (14:54→22:55)
--- NOTE | 2018-07-30 03:12 | PN ---
DATE: 07/29/2018 SUBJECTIVE: The patient is in bed, in no acute distress, nontoxic. PHYSICAL EXAMINATION: VITAL SIGNS: Temperature is 98, blood pressure is 130/70, respiratory rate of 20, and heart rate of 72. HEENT: Unremarkable. NECK: Supple. LUNGS: Decreased breath sounds. HEART: Normal S1 and S2. ABDOMEN: Soft and nontender. LABORATORY DATA: Reveals a white count of 7.5. BUN is 30 and creatinine of 0.7. Microbiology reveals cultures are negative. Review of orders reveals the patient to be on Zosyn. ASSESSMENT AND PLAN: This is a 58-year-old with a history of diverticulitis, anxiety, hypothyroidism, depression, admitted with acute extensive sigmoid colon diverticulitis, failed an outpatient antibiotic therapy; on Zosyn, improving slowly. We will follow with you. Kosta Henriquez MD
[2018-07-30] MEDS: Piperacillin/Tazobact 3.375 gm 100 ML IVPB SCH ×3 (05:35→21:34)
[2018-07-30] MEDS: Levothyroxine 75 MCG TAB PO SCH (05:36)
[2018-07-30] MEDS: Sodium Chloride 0.9% 1,000 ML IV SCH (05:37)
[2018-07-30] MEDS: Morphine 2 mg/ml ISec IVP PRN ×3 (05:45→21:53)
[2018-07-30 07:50] LABS: BASO # 0.04 K/mm3 (0.0-2.0); BASO % 0.6 % (0.0-3.0); EOS # 0.2 (0.0-0.7); EOS % 3.2 % (1.5-5.0); GRAN # 3.82 (1.4-6.5); GRAN % 54.9 % (50.0-68.0); HEMOGLOBIN 13.5 g/dL (12.0-16.0); LYMPH # 2.4 (1.2-3.4); LYMPH % 34.7 % (22.0-35.0); MEAN CELL VOLUME 86.6 fl (80.0-105.0); MEAN CORPUSCULAR HEMOGLOBIN 29.2 pg (25.0-35.0); MEAN CORPUSCULAR HGB CONC 33.8 g/dl (31.0-37.0); MEAN PLATELET VOLUME 9.3 fl (7.0-11.0); MONO # 0.5 (0.1-0.6); MONO % 6.6 % (1.0-6.0); RBC 4.62 10^6/uL (3.5-6.1); RED CELL DISTRIBUTION WIDTH 13.6 % (11.5-14.5)
[2018-07-30 08:25] LABS: ALB/GLOB RATIO 1.3 (1.1-1.8); ALBUMIN 3.7 g/dL (3.0-4.8); ALT/SGPT 33 U/L (7-56); AST/SGOT 31 U/L (14-36); BLOOD UREA NITROGEN 5 mg/dL (7-21); CALCIUM 9.5 mg/dL (8.4-10.5); GFR NON-AFRICAN AMERICAN > 60
[2018-07-30] MEDS ORDERED: Hydrocortisone 2.5% Rectal Cream(30 gm) PR SCH (10:00)
--- NOTE | 2018-07-30 10:07 | CP.PCM.PN ---
Subjective - Date & Time of Evaluation Date of Evaluation: 07/30/18 Time of Evaluation: 09:46 - Subjective Subjective: PGY-1 General Surgery Progress Note for Dr. To Patient seen and examined at bedside. Patient states that she was experiencing some nausea overnight. Patient is still complaining of some abdominal pain, though it continues to improve. Objective - Vital Signs/Intake and Output Vital Signs (last 24 hours): Temp Pulse Resp BP Pulse Ox 98 F 64 20 127/80 97 07/30/18 06:00 07/30/18 06:00 07/30/18 06:00 07/30/18 06:00 07/30/18 06:00 Intake and Output: 07/30/18 07/30/18 06:59 18:59 Intake Total 540 Balance 540 - Medications Medications: Current Medications Acetaminophen (Tylenol 325mg Tab) 650 mg PO Q6H PRN PRN Reason: Headache Last Admin: 07/28/18 20:13 Dose: 650 mg Alprazolam (Xanax) 0.5 mg PO HS PRN; Protocol PRN Reason: Insomnia Last Admin: 07/29/18 01:23 Dose: 0.5 mg Heparin Sodium (Porcine) (Heparin) 5,000 units SC Q12 [facility]; Protocol Last Admin: 07/29/18 21:47 Dose: 5,000 units Hydrocortisone (Anusol-Hc) 0 gm [place] BID [facility] Piperacillin Sod/Tazobactam Sod (Zosyn 3.375 In Ns 100ml) 100 mls @ 25 mls/hr IVPB Q8 [facility]; Protocol Last Admin: 07/30/18 05:35 Dose: 25 mls/hr Levothyroxine Sodium (Synthroid) 75 mcg PO 0600 [facility] Last Admin: 07/30/18 05:36 Dose: 75 mcg Morphine Sulfate (Morphine) 2 mg IVP Q4H PRN PRN Reason: Pain, moderate (4-7) Last Admin: 07/30/18 05:45 Dose: 2 mg Pantoprazole Sodium (Protonix Ec Tab) 40 mg PO ACB [facility] Last Admin: 07/29/18 09:36 Dose: 40 mg Tramadol HCl (Ultram) 50 mg PO Q6 PRN PRN Reason: Pain, moderate (4-7) Venlafaxine HCl (Effexor Xr) 75 mg PO DAILY [facility] Last Admin: 07/29/18 09:36 Dose: 75 mg - Labs Labs: 07/30/18 07:30 07/30/18 07:30 PT 12.9 SECONDS (9.4-12.5) H 07/28/18 08:15 INR 1.12 07/28/18 08:15 - Constitutional Appears: Non-toxic, No Acute Distress - Head Exam Head Exam: ATRAUMATIC, NORMAL INSPECTION - Eye Exam Eye Exam: EOMI, Normal appearance - ENT Exam ENT Exam: Mucous Membranes Moist - Respiratory Exam Respiratory Exam: Clear to Ausculation Bilateral, NORMAL BREATHING PATTERN. absent: Rhonchi, Wheezes - Cardiovascular Exam Cardiovascular Exam: RRR, +S1, +S2 - GI/Abdominal Exam GI & Abdominal Exam: Soft, Tenderness (+Mild left sided tenderness), Normal Bowel Sounds - Extremities Exam Extremities Exam: absent: Pedal Edema, Tenderness - Neurological Exam Neurological Exam: Alert, Awake, Oriented x3 - Psychiatric Exam Psychiatric exam: Normal Affect, Normal Mood - Skin Skin Exam: Dry, Intact, Normal Color, Warm Assessment and Plan - Assessment and Plan (Free Text) Assessment: 58 y/o female w/ acute noncomplicated diverticulitis s/p flexible sigmoidoscopy with bx 07/28 Plan - LLQ pain improving - On Zosyn, continue IV antibiotics per ID - Tolerating regular diet - Flexible sigmoidoscopy (07/28) - mild edematous and congested rectal mucosa. Con't to f/u GI recss - F/u biopsy path results - C Diff negative, repeat stool cultures negative Mike Gomez, PGY-1
[2018-07-30] MEDS: Pantoprazole 40 mg EC Tab PO SCH (10:17)
[2018-07-30] MEDS: Venlafaxine 75 mg ER Cap PO SCH (10:18)
--- NOTE | 2018-07-30 11:19 | CP.PCM.DIS ---
Provider - Provider Date of Admission: 07/21/18 21:40 Attending physician: Jason Alcocer MD Hospital Course - Lab Results Lab Results: Micro Results 07/28/18 16:02 Stool C. difficile Antigen & Toxins A,B - Final 07/27/18 14:30 Stool Stool Culture - Final NO SALMONELLA, SHIGELLA OR CAMPYLOBACTER ISOLATED. 07/27/18 14:30 Stool C. difficile Antigen & Toxins A,B - Final 07/21/18 21:35 Blood Blood Culture - Final NO GROWTH AFTER 5 DAYS 07/21/18 21:35 Blood Gram Stain - Final TEST NOT PERFORMED 07/21/18 22:02 Blood Blood Culture - Final NO GROWTH AFTER 5 DAYS 07/21/18 22:02 Blood Gram Stain - Final TEST NOT PERFORMED 07/24/18 16:00 Stool Stool Culture - Final NO SALMONELLA, SHIGELLA OR CAMPYLOBACTER ISOLATED. 07/24/18 16:00 Stool Ova and Parasite Concentrate Exam - Final 07/24/18 16:00 Stool C. difficile Antigen & Toxins A,B - Final 07/21/18 21:10 Urine Urine Culture - Final No Growth (<1,000 CFU/ML) Most Recent Lab Values WBC 7.0 10^3/uL (4.5-11.0) 07/30/18 07:30 RBC 4.62 10^6/uL (3.5-6.1) 07/30/18 07:30 Hgb 13.5 g/dL (12.0-16.0) 07/30/18 07:30 Hct 40.0 % (36.0-48.0) 07/30/18 07:30 MCV 86.6 fl (80.0-105.0) 07/30/18 07:30 MCH 29.2 pg (25.0-35.0) 07/30/18 07:30 MCHC 33.8 g/dl (31.0-37.0) 07/30/18 07:30 RDW 13.6 % (11.5-14.5) 07/30/18 07:30 Plt Count 314 10^3/uL (120.0-450.0) 07/30/18 07:30 MPV 9.3 fl (7.0-11.0) 07/30/18 07:30 Gran % 54.9 % (50.0-68.0) 07/30/18 07:30 Lymph % (Auto) 34.7 % (22.0-35.0) 07/30/18 07:30 [place] % (Auto) 6.6 % (1.0-6.0) H 07/30/18 07:30 Eos % (Auto) 3.2 % (1.5-5.0) 07/30/18 07:30 Baso % (Auto) 0.6 % (0.0-3.0) 07/30/18 07:30 Gran # 3.82 (1.4-6.5) 07/30/18 07:30 Lymph # (Auto) 2.4 (1.2-3.4) 07/30/18 07:30 [place] # (Auto) 0.5 (0.1-0.6) 07/30/18 07:30 Eos # (Auto) 0.2 (0.0-0.7) 07/30/18 07:30 Baso # (Auto) 0.04 K/mm3 (0.0-2.0) 07/30/18 07:30 PT 12.9 SECONDS (9.4-12.5) H 07/28/18 08:15 INR 1.12 07/28/18 08:15 pO2 52 mm/Hg (30-55) 07/21/18 18:12 VBG pH 7.39 (7.32-7.43) 07/21/18 18:12 VBG pCO2 50.0 (40-60) 07/21/18 18:12 VBG HCO3 30.3 mmol/l (21-28) H 07/21/18 18:12 VBG Total CO2 31.8 mmol.L (22-28) H 07/21/18 18:12 VBG O2 Sat (Calc) 90.4 % (40-65) H 07/21/18 18:12 VBG Base Excess 4.2 mmol/L (0.0-2.0) H 07/21/18 18:12 VBG Potassium 3.8 mmol/L (3.6-5.2) 07/21/18 18:12 Sodium 140.0 mmol/L (132-148) 07/21/18 18:12 Chloride 105.0 mmol/L (98-107) 07/21/18 18:12 Glucose 105 mg/dl (65-105) 07/21/18 18:12 Lactate 1.2 mmol/L (0.7-2.1) 07/21/18 18:12 FiO2 21.0 % 07/21/18 18:12 Sodium 141 mmol/L (132-148) 07/30/18 07:30 Potassium 4.3 mmol/L (3.6-5.0) 07/30/18 07:30 Chloride 108 mmol/L (98-107) H 07/30/18 07:30 Carbon Dioxide 25 mmol/L (21-33) 07/30/18 07:30 Anion Gap 12 (10-20) 07/30/18 07:30 BUN 5 mg/dL (7-21) L 07/30/18 07:30 Creatinine 0.8 mg/dl (0.7-1.2) 07/30/18 07:30 Est GFR ( Amer) > 60 07/30/18 07:30 Est GFR (Non-Af Amer) > 60 07/30/18 07:30 Random Glucose 101 mg/dL (70-110) 07/30/18 07:30 Calcium 9.5 mg/dL (8.4-10.5) 07/30/18 07:30 Phosphorus 4.8 mg/dL (2.5-4.5) H 07/30/18 07:30 Magnesium 1.9 mg/dL (1.7-2.2) 07/30/18 07:30 Total Bilirubin 0.3 mg/dL (0.2-1.3) 07/30/18 07:30 AST 31 U/L (14-36) 07/30/18 07:30 ALT 33 U/L (7-56) 07/30/18 07:30 Alkaline Phosphatase 61 U/L (38-126) 07/30/18 07:30 Total Protein 6.6 g/dL (5.8-8.3) 07/30/18 07:30 Albumin 3.7 g/dL (3.0-4.8) 07/30/18 07:30 Globulin 2.9 gm/dL 07/30/18 07:30 Albumin/Globulin Ratio 1.3 (1.1-1.8) 07/30/18 07:30 Lipase 51 U/L (23-300) 07/21/18 18:12 Venous Blood Potassium 3.8 mmol/L (3.6-5.2) 07/21/18 18:12 Urine Color Yellow (YELLOW) 07/21/18 21:10 Urine Appearance Clear (CLEAR) 07/21/18 21:10 Urine pH 6.0 (4.7-8.0) 07/21/18 21:10 Ur Specific [place] <= 1.005 (1.005-1.035) 07/21/18 21:10 Urine Protein Negative mg/dL (<30 mg/dL) 07/21/18 21:10 Urine Glucose (UA) Negative mg/dL (NEGATIVE) 07/21/18 21:10 Urine Ketones Negative mg/dL (NEGATIVE) 07/21/18 21:10 Urine Blood Trace-intact (NEGATIVE) H 07/21/18 21:10 Urine Nitrate Negative (NEGATIVE) 07/21/18 21:10 Urine Bilirubin Negative (NEGATIVE) 07/21/18 21:10 Urine Urobilinogen 0.2 E.U./dL (<1 E.U./dL) 07/21/18 21:10 Ur Leukocyte Esterase Negative Remy/uL (NEGATIVE) 07/21/18 21:10 Urine RBC 2 - 5 /hpf (0-2) 07/21/18 21:10 Urine WBC 0 - 2 /hpf (0-6) 07/21/18 21:10 Ur Epithelial Cells 6 - 8 /hpf (0-5) 07/21/18 21:10 Urine Bacteria Few (NEG) 07/21/18 21:10 HIV 1&2 Ag/Ab, 4th Gen Nonreactive (Nonreactive) 07/22/18 08:30 Discharge Exam - Head Exam Head Exam: ATRAUMATIC, NORMAL INSPECTION Discharge Plan - Follow Up Plan Condition: STABLE Disposition: HOME/ ROUTINE
--- NOTE | 2018-07-30 15:52 | CP.PCM.PN ---
Subjective - Date & Time of Evaluation Date of Evaluation: 07/30/18 Time of Evaluation: 08:30 - Subjective Subjective: Still with some abdominal pain but a little better. Afebrile. Objective - Vital Signs/Intake and Output Vital Signs (last 24 hours): Temp Pulse Resp BP Pulse Ox 97.4 F L 72 20 138/80 98 07/30/18 14:00 07/30/18 14:00 07/30/18 14:00 07/30/18 14:00 07/30/18 14:00 Intake and Output: 07/30/18 07/30/18 06:59 18:59 Intake Total 540 Balance 540 - Medications Medications: Current Medications Acetaminophen (Tylenol 325mg Tab) 650 mg PO Q6H PRN PRN Reason: Headache Last Admin: 07/28/18 20:13 Dose: 650 mg Alprazolam (Xanax) 0.5 mg PO HS PRN; Protocol PRN Reason: Insomnia Last Admin: 07/29/18 01:23 Dose: 0.5 mg Heparin Sodium (Porcine) (Heparin) 5,000 units SC Q12 KAREN; Protocol Last Admin: 07/30/18 10:17 Dose: 5,000 units Hydrocortisone (Anusol-Hc) 0 gm [place] BID KAREN Last Admin: 07/30/18 10:19 Dose: 1 applic Piperacillin Sod/Tazobactam Sod (Zosyn 3.375 In Ns 100ml) 100 mls @ 25 mls/hr IVPB Q8 KAREN; Protocol Last Admin: 07/30/18 13:21 Dose: 25 mls/hr Levothyroxine Sodium (Synthroid) 75 mcg PO 0600 KAREN Last Admin: 07/30/18 05:36 Dose: 75 mcg Morphine Sulfate (Morphine) 2 mg IVP Q4H PRN PRN Reason: Pain, moderate (4-7) Last Admin: 07/30/18 14:20 Dose: 2 mg Pantoprazole Sodium (Protonix Ec Tab) 40 mg PO ACB KAREN Last Admin: 07/30/18 10:17 Dose: 40 mg Tramadol HCl (Ultram) 50 mg PO Q6 PRN PRN Reason: Pain, moderate (4-7) Venlafaxine HCl (Effexor Xr) 75 mg PO DAILY [facility] Last Admin: 07/30/18 10:18 Dose: 75 mg - Labs Labs: 07/30/18 07:30 07/30/18 07:30 PT 12.9 SECONDS (9.4-12.5) H 07/28/18 08:15 INR 1.12 07/28/18 08:15 - Constitutional Appears: No Acute Distress - Head Exam Head Exam: NORMAL INSPECTION - Respiratory Exam Respiratory Exam: Decreased Breath Sounds - Cardiovascular Exam Cardiovascular Exam: +S1, +S2 - GI/Abdominal Exam GI & Abdominal Exam: Soft. absent: Tenderness Assessment and Plan - Assessment and Plan (Free Text) Plan: Assessment acute sigmoid diverticulitis S/P sigmoidoscopy with biopsy anxiety hypothyroidism depression Plan continue Zosyn and follow up sigmoid mucosa biospy results
--- NOTE | 2018-07-30 19:18 | CP.PCM.PN ---
Subjective - Date & Time of Evaluation Date of Evaluation: 07/30/18 Time of Evaluation: 07:40 - Subjective Subjective: Progress Note for Dr. Alcocer service Patient seen and examined at bedside. No acute events reported overnight. Advanced to soft diet yesterday, had some difficulty tolerating, will observe today. Objective - Vital Signs/Intake and Output Vital Signs (last 24 hours): Temp Pulse Resp BP Pulse Ox 97.4 F L 72 20 138/80 98 07/30/18 14:00 07/30/18 14:00 07/30/18 14:00 07/30/18 14:00 07/30/18 14:00 - Medications Medications: Current Medications Acetaminophen (Tylenol 325mg Tab) 650 mg PO Q6H PRN PRN Reason: Headache Last Admin: 07/28/18 20:13 Dose: 650 mg Alprazolam (Xanax) 0.5 mg PO HS PRN; Protocol PRN Reason: Insomnia Last Admin: 07/29/18 01:23 Dose: 0.5 mg Heparin Sodium (Porcine) (Heparin) 5,000 units SC Q12 KAREN; Protocol Last Admin: 07/30/18 10:17 Dose: 5,000 units Hydrocortisone (Anusol-Hc) 0 gm [place] BID KAREN Last Admin: 07/30/18 10:19 Dose: 1 applic Piperacillin Sod/Tazobactam Sod (Zosyn 3.375 In Ns 100ml) 100 mls @ 25 mls/hr IVPB Q8 KAREN; Protocol Last Admin: 07/30/18 13:21 Dose: 25 mls/hr Levothyroxine Sodium (Synthroid) 75 mcg PO 0600 KAREN Last Admin: 07/30/18 05:36 Dose: 75 mcg Morphine Sulfate (Morphine) 2 mg IVP Q4H PRN PRN Reason: Pain, moderate (4-7) Last Admin: 07/30/18 14:20 Dose: 2 mg Pantoprazole Sodium (Protonix Ec Tab) 40 mg PO ACB KAREN Last Admin: 07/30/18 10:17 Dose: 40 mg Tramadol HCl (Ultram) 50 mg PO Q6 PRN PRN Reason: Pain, moderate (4-7) Venlafaxine HCl (Effexor Xr) 75 mg PO DAILY [facility] Last Admin: 07/30/18 10:18 Dose: 75 mg - Labs Labs: 07/30/18 07:30 07/30/18 07:30 PT 12.9 SECONDS (9.4-12.5) H 07/28/18 08:15 INR 1.12 07/28/18 08:15 - Additional Findings Additional findings: - Constitutional Appears: Non-toxic, No Acute Distress - Head Exam Head Exam: ATRAUMATIC, NORMAL INSPECTION, NORMOCEPHALIC - Eye Exam Eye Exam: EOMI, Normal appearance. absent: Conjunctival injection, Scleral icterus Pupil Exam: absent: Irregular, Unequal - ENT Exam ENT Exam: Mucous Membranes Moist - Neck Exam Neck exam: Positive for: Full Rom. Negative for: Lymphadenopathy - Respiratory Exam Respiratory Exam: Clear to Auscultation Bilateral, NORMAL BREATHING PATTERN. absent: Accessory Muscle Use, Chest Wall Tenderness, Decreased Breath Sounds, Rales, Rhonchi, Wheezes - Cardiovascular Exam Cardiovascular Exam: REGULAR RHYTHM, RRR, +S1, +S2. absent: Bradycardia, Tachycardia, Irregular Rhythm, JVD, +S4 - GI/Abdominal Exam GI & Abdominal Exam: Guarding, Normal Bowel Sounds, Soft, Tenderness (mild epigastric tenderness, moderate left upper/lower quadrant tenderness). absent: Diminished Bowel Sounds, Distended, Firm, Hyperactive Bowel Sounds, Hypoactive Bowel Sounds, Rebound, Rigid - Extremities Exam Extremities exam: Positive for: normal capillary refill, normal inspection, peda l pulses present. Negative for: calf tenderness, pedal edema, tenderness - Back Exam Back exam: absent: CVA tenderness (L), CVA tenderness (R) - Neurological Exam awake and alert, following all commands, moving all extremities - Psychiatric Exam Psychiatric exam: Normal Affect and Mood - Skin Skin Exam: Dry, Intact, Normal Color, Warm Assessment and Plan - Assessment and Plan (Free Text) Assessment: This is a 58 yo F with PMH of Hypothyroidism, Asthma, MDD (with prior suicide attempt), and Anxiety who sent to [facility] by PMD for persisting left lower quadrant abdominal pain x3 weeks. She was admitted for persisting diverticulitis, likely failed outpatient antibiotic treatment. Now with diffuse colitis, s/p sigmoidoscopy with biopsy. Continuing IV antibiotics, continue trialing soft diet until patient able to tolerate. Plan: 1) Acute diverticulitis + diffuse colitis -mild-moderate left sided pain persisting -Repeat CT abd/pelvis over the weekend concerning for diffuse colitis in addition to acute diverticulitis -GI and Surgery consulted, appreciate their recs Surgery: continue IV abx, advance diet as tolerated, f/u C diff test (was negative) GI: s/p sigmoidoscopy, path notable only non-specific colitis -ID consulted for failed outpatient abx regimen, appreciate their recs; continue Zosyn, stool cx negative, HIV testing negative; can be discharged on augmentin when ready for D/c -blood cx x2 negative at 5 days, urine cx negative, C diff negative, stool cx negative -pain control as per surgery/GI 2) Hypothyroid -continue home synthroid Dispo: Pending toleration of soft diet, likely d/c tomorrow Ppx: SCDs for DVT, Protonix for GI Reviewed and discussed with attending, Dr. Alcocer
[2018-07-31] MEDS: Levothyroxine 75 MCG TAB PO SCH (05:53)
[2018-07-31] MEDS: Piperacillin/Tazobact 3.375 gm 100 ML IVPB SCH (05:54)
[2018-07-31 07:52] VITALS: BP 124/66; PULSE 62; RESP 20; TEMP 98.2; O2SAT 98
--- NOTE | 2018-07-31 08:49 | CP.PCM.PN ---
<Clementine Hewitt - Last Filed: 07/31/18 08:44> Subjective - Date & Time of Evaluation Date of Evaluation: 07/31/18 Time of Evaluation: 08:44 - Subjective Subjective: Gastroenterology Fellow/PGY6 Progress Note Patient tolerating regular diet. Notes minimal abdominal pain. States she is ready to go home. A 12-point review of systems negative except for as above. Objective - Vital Signs/Intake and Output Vital Signs (last 24 hours): Temp Pulse Resp BP Pulse Ox 98.2 F 62 20 124/66 98 07/31/18 06:00 07/31/18 06:00 07/31/18 06:00 07/31/18 06:00 07/31/18 06:00 Intake and Output: 07/31/18 07/31/18 06:59 18:59 Intake Total 540 Balance 540 - Medications Medications: Current Medications Acetaminophen (Tylenol 325mg Tab) 650 mg PO Q6H PRN PRN Reason: Headache Last Admin: 07/28/18 20:13 Dose: 650 mg Alprazolam (Xanax) 0.5 mg PO HS PRN; Protocol PRN Reason: Insomnia Last Admin: 07/29/18 01:23 Dose: 0.5 mg Heparin Sodium (Porcine) (Heparin) 5,000 units SC Q12 KAREN; Protocol Last Admin: 07/30/18 21:38 Dose: Not Given Hydrocortisone (Anusol-Hc) 0 gm [place] BID KAREN Last Admin: 07/30/18 10:19 Dose: 1 applic Piperacillin Sod/Tazobactam Sod (Zosyn 3.375 In Ns 100ml) 100 mls @ 25 mls/hr IVPB Q8 KAREN; Protocol Last Admin: 07/31/18 05:54 Dose: 25 mls/hr Levothyroxine Sodium (Synthroid) 75 mcg PO 0600 KAREN Last Admin: 07/31/18 05:53 Dose: 75 mcg Morphine Sulfate (Morphine) 2 mg IVP Q4H PRN PRN Reason: Pain, moderate (4-7) Last Admin: 07/30/18 21:53 Dose: 2 mg Pantoprazole Sodium (Protonix Ec Tab) 40 mg PO ACB KAREN Last Admin: 07/30/18 10:17 Dose: 40 mg Tramadol HCl (Ultram) 50 mg PO Q6 PRN PRN Reason: Pain, moderate (4-7) Venlafaxine HCl (Effexor Xr) 75 mg PO DAILY KAREN Last Admin: 07/30/18 10:18 Dose: 75 mg - Labs Labs: 07/30/18 07:30 07/30/18 07:30 PT 12.9 SECONDS (9.4-12.5) H 07/28/18 08:15 INR 1.12 07/28/18 08:15 - Constitutional Appears: Non-toxic, No Acute Distress - Head Exam Head Exam: ATRAUMATIC, NORMOCEPHALIC - Eye Exam Eye Exam: EOMI, PERRL. absent: Scleral icterus Pupil Exam: PERRL. absent: Miosis, Mydriatic - ENT Exam ENT Exam: Mucous Membranes Moist, Normal Oropharynx - Neck Exam Neck Exam: Full ROM, Normal Inspection - Respiratory Exam Respiratory Exam: Clear to Ausculation Bilateral. absent: Rales, Rhonchi, Wheezes - Cardiovascular Exam Cardiovascular Exam: RRR, +S1, +S2. absent: Gallop, Rubs - GI/Abdominal Exam GI & Abdominal Exam: Soft, Tenderness, Normal Bowel Sounds. absent: Distended, Firm, Guarding, Rigid, Organomegaly, Rebound Additional comments: minimal LLQ discomfort to palpation - Extremities Exam Extremities Exam: Normal Inspection. absent: Pedal Edema - Neurological Exam Neurological Exam: Alert, Awake - Psychiatric Exam Psychiatric exam: Normal Affect, Normal Mood - Skin Skin Exam: Dry, Intact, Normal Color, Warm Assessment and Plan - Assessment and Plan (Free Text) Assessment: 58 year old female with PMH of Hypothyroidism, MDD, and Anxiety presenting with abdominal pain and diarrhea. Active treatment of intractable abdominal pain 2/2 descending diverticulitis. Endorses prior EGD and colonoscopy at least five years ago showing PUD and normal colon without polyps. Plan: -POD3 (07/28) flexible sigmoidoscopy- normal appearing mucosa descending colon and mild edematous and congested rectal mucosa, no acute inflammation on pathology -on Zosyn, recommend completion of 14 day antibiotic course -ID managing- follow up recommendations -tolerating diet -recommend outpatient GI follow up to re-assess symptoms and colonoscopy for colorectal cancer screening and re-assessment of diverticulitis <Deo Jeffries V - Last Filed: 07/31/18 23:39> Objective - Vital Signs/Intake and Output Vital Signs (last 24 hours): Temp Pulse Resp BP Pulse Ox 98.2 F 62 20 124/66 98 07/31/18 06:00 07/31/18 06:00 07/31/18 06:00 07/31/18 06:00 07/31/18 06:00 - Labs Labs: 07/30/18 07:30 07/30/18 07:30 PT 12.9 SECONDS (9.4-12.5) H 07/28/18 08:15 INR 1.12 07/28/18 08:15 Attending/Attestation - Attestation I have personally seen and examined this patient.: Yes I have fully participated in the care of the patient.: Yes I have reviewed all pertinent clinical information, including history, physical exam and plan: Yes Notes (Text): This is an addendum to GI progress report dictated by the GI Fellow.The patient was seen and examined earlier. Medical records, lab studies, imagings were reviewed. Last 24 hours events reviewed. Agreed with the above treatment plan as outlined in GI Fellow 's notes with the addition of the following Complete the antibiotic course as per ID Elective colonoscopy Advised to come to ER if any worsening of symptoms 07/31/18 23:37
--- NOTE | 2018-07-31 09:22 | CP.PCM.DIS ---
<MarliCarlton novak - Last Filed: 07/31/18 21:50> Provider - Provider Date of Admission: 07/21/18 21:40 Attending physician: Jason Alcocer MD Primary care physician: Dr. Alcocer Consults: GI: Nesha Surgery: Nesha ID: [id number] Time Spent in preparation of Discharge (in minutes): 35 Diagnosis - Discharge Diagnosis (1) Colitis Status: Acute Priority: High (2) Abdominal pain Status: Resolved Priority: Medium (3) Failure of outpatient treatment Status: Acute Priority: High (4) Diverticulitis Status: Acute Priority: High Hospital Course - Lab Results Lab Results: Micro Results 07/28/18 16:02 Stool C. difficile Antigen & Toxins A,B - Final 07/27/18 14:30 Stool Stool Culture - Final NO SALMONELLA, SHIGELLA OR CAMPYLOBACTER ISOLATED. 07/27/18 14:30 Stool C. difficile Antigen & Toxins A,B - Final 07/21/18 21:35 Blood Blood Culture - Final NO GROWTH AFTER 5 DAYS 07/21/18 21:35 Blood Gram Stain - Final TEST NOT PERFORMED 07/21/18 22:02 Blood Blood Culture - Final NO GROWTH AFTER 5 DAYS 07/21/18 22:02 Blood Gram Stain - Final TEST NOT PERFORMED 07/24/18 16:00 Stool Stool Culture - Final NO SALMONELLA, SHIGELLA OR CAMPYLOBACTER ISOLATED. 07/24/18 16:00 Stool Ova and Parasite Concentrate Exam - Final 07/24/18 16:00 Stool C. difficile Antigen & Toxins A,B - Final 07/21/18 21:10 Urine Urine Culture - Final No Growth (<1,000 CFU/ML) Most Recent Lab Values WBC 7.0 10^3/uL (4.5-11.0) 07/30/18 07:30 RBC 4.62 10^6/uL (3.5-6.1) 07/30/18 07:30 Hgb 13.5 g/dL (12.0-16.0) 07/30/18 07:30 Hct 40.0 % (36.0-48.0) 07/30/18 07:30 MCV 86.6 fl (80.0-105.0) 07/30/18 07:30 MCH 29.2 pg (25.0-35.0) 07/30/18 07:30 MCHC 33.8 g/dl (31.0-37.0) 07/30/18 07:30 RDW 13.6 % (11.5-14.5) 07/30/18 07:30 Plt Count 314 10^3/uL (120.0-450.0) 07/30/18 07:30 MPV 9.3 fl (7.0-11.0) 07/30/18 07:30 Gran % 54.9 % (50.0-68.0) 07/30/18 07:30 Lymph % (Auto) 34.7 % (22.0-35.0) 07/30/18 07:30 [place] % (Auto) 6.6 % (1.0-6.0) H 07/30/18 07:30 Eos % (Auto) 3.2 % (1.5-5.0) 07/30/18 07:30 Baso % (Auto) 0.6 % (0.0-3.0) 07/30/18 07:30 Gran # 3.82 (1.4-6.5) 07/30/18 07:30 Lymph # (Auto) 2.4 (1.2-3.4) 07/30/18 07:30 [place] # (Auto) 0.5 (0.1-0.6) 07/30/18 07:30 Eos # (Auto) 0.2 (0.0-0.7) 07/30/18 07:30 Baso # (Auto) 0.04 K/mm3 (0.0-2.0) 07/30/18 07:30 PT 12.9 SECONDS (9.4-12.5) H 07/28/18 08:15 INR 1.12 07/28/18 08:15 pO2 52 mm/Hg (30-55) 07/21/18 18:12 VBG pH 7.39 (7.32-7.43) 07/21/18 18:12 VBG pCO2 50.0 (40-60) 07/21/18 18:12 VBG HCO3 30.3 mmol/l (21-28) H 07/21/18 18:12 VBG Total CO2 31.8 mmol.L (22-28) H 07/21/18 18:12 VBG O2 Sat (Calc) 90.4 % (40-65) H 07/21/18 18:12 VBG Base Excess 4.2 mmol/L (0.0-2.0) H 07/21/18 18:12 VBG Potassium 3.8 mmol/L (3.6-5.2) 07/21/18 18:12 Sodium 140.0 mmol/L (132-148) 07/21/18 18:12 Chloride 105.0 mmol/L (98-107) 07/21/18 18:12 Glucose 105 mg/dl (65-105) 07/21/18 18:12 Lactate 1.2 mmol/L (0.7-2.1) 07/21/18 18:12 FiO2 21.0 % 07/21/18 18:12 Sodium 141 mmol/L (132-148) 07/30/18 07:30 Potassium 4.3 mmol/L (3.6-5.0) 07/30/18 07:30 Chloride 108 mmol/L (98-107) H 07/30/18 07:30 Carbon Dioxide 25 mmol/L (21-33) 07/30/18 07:30 Anion Gap 12 (10-20) 07/30/18 07:30 BUN 5 mg/dL (7-21) L 07/30/18 07:30 Creatinine 0.8 mg/dl (0.7-1.2) 07/30/18 07:30 Est GFR ( Amer) > 60 07/30/18 07:30 Est GFR (Non-Af Amer) > 60 07/30/18 07:30 Random Glucose 101 mg/dL (70-110) 07/30/18 07:30 Calcium 9.5 mg/dL (8.4-10.5) 07/30/18 07:30 Phosphorus 4.8 mg/dL (2.5-4.5) H 07/30/18 07:30 Magnesium 1.9 mg/dL (1.7-2.2) 07/30/18 07:30 Total Bilirubin 0.3 mg/dL (0.2-1.3) 07/30/18 07:30 AST 31 U/L (14-36) 07/30/18 07:30 ALT 33 U/L (7-56) 07/30/18 07:30 Alkaline Phosphatase 61 U/L (38-126) 07/30/18 07:30 Total Protein 6.6 g/dL (5.8-8.3) 07/30/18 07:30 Albumin 3.7 g/dL (3.0-4.8) 07/30/18 07:30 Globulin 2.9 gm/dL 07/30/18 07:30 Albumin/Globulin Ratio 1.3 (1.1-1.8) 07/30/18 07:30 Lipase 51 U/L (23-300) 07/21/18 18:12 Venous Blood Potassium 3.8 mmol/L (3.6-5.2) 07/21/18 18:12 Urine Color Yellow (YELLOW) 07/21/18 21:10 Urine Appearance Clear (CLEAR) 07/21/18 21:10 Urine pH 6.0 (4.7-8.0) 07/21/18 21:10 Ur Specific [place] <= 1.005 (1.005-1.035) 07/21/18 21:10 Urine Protein Negative mg/dL (<30 mg/dL) 07/21/18 21:10 Urine Glucose (UA) Negative mg/dL (NEGATIVE) 07/21/18 21:10 Urine Ketones Negative mg/dL (NEGATIVE) 07/21/18 21:10 Urine Blood Trace-intact (NEGATIVE) H 07/21/18 21:10 Urine Nitrate Negative (NEGATIVE) 07/21/18 21:10 Urine Bilirubin Negative (NEGATIVE) 07/21/18 21:10 Urine Urobilinogen 0.2 E.U./dL (<1 E.U./dL) 07/21/18 21:10 Ur Leukocyte Esterase Negative Remy/uL (NEGATIVE) 07/21/18 21:10 Urine RBC 2 - 5 /hpf (0-2) 07/21/18 21:10 Urine WBC 0 - 2 /hpf (0-6) 07/21/18 21:10 Ur Epithelial Cells 6 - 8 /hpf (0-5) 07/21/18 21:10 Urine Bacteria Few (NEG) 07/21/18 21:10 HIV 1&2 Ag/Ab, 4th Gen Nonreactive (Nonreactive) 07/22/18 08:30 - Hospital Course Hospital Course: This is a 58 yo F with PMH of Hypothyroidism, Asthma, MDD (with prior suicide attempt), and Anxiety who sent to [facility] by PMD for persisting left lower quadrant abdominal pain x3 weeks. She was admitted for persisting diverticulitis in the setting of failed outpatient antibiotic treatment. Later was found to have developed diffuse colitis, s/p sigmoidoscopy with biopsy which was notable for non-specific inflammation. While here, she was also seen by GI, Surgery, and ID. As per Surgery, no surgical intervention indicated, continue with abx ther apy and advancing diet as tolerated. As per GI, pathology notable for non- specific inflammation; f/u with GI as outpatient in 6-8 weeks for outpatient colonoscopy. She was advanced to soft diet, which she tolerated moderately well and will be discharged on, until such time as she can advance herself to a regular diet. As per ID, patient to be discharged on Augmentin; will complete PO augmentin BID for total of 14 days of antibiotics. A script for Augmentin was provided to the patient, and she was instructed to fill it and take as prescribed. She was also instructed to resume her home medi cations as previously prescribed, to maintain a soft diet for now and advance only as tolerated, to follow up with her PMD (Dr. Alcocer) within 1 week of discharge, and to follow up with GI in 6-8 weeks for elective colonoscopy. She expressed understanding and agreement with these instructions. Questions were answered to her satisfaction, and she was discharged to home. Reviewed and discussed with attending, Dr. Alcocer Discharge Exam - Additional Findings Additional findings: - Constitutional Appears: Non-toxic, No Acute Distress - Head Exam Head Exam: ATRAUMATIC, NORMAL INSPECTION, NORMOCEPHALIC - Eye Exam Eye Exam: EOMI, Normal appearance. absent: Conjunctival injection, Scleral icterus Pupil Exam: absent: Irregular, Unequal - ENT Exam ENT Exam: Mucous Membranes Moist - Neck Exam Neck exam: Positive for: Full Rom. Negative for: Lymphadenopathy - Respiratory Exam Respiratory Exam: Clear to Auscultation Bilateral, NORMAL BREATHING PATTERN. absent: Accessory Muscle Use, Chest Wall Tenderness, Decreased Breath Sounds, Rales, Rhonchi, Wheezes - Cardiovascular Exam Cardiovascular Exam: REGULAR RHYTHM, RRR, +S1, +S2. absent: Bradycardia, Tachycardia, Irregular Rhythm, JVD, +S4 - GI/Abdominal Exam GI & Abdominal Exam: Guarding, Normal Bowel Sounds, Soft, Tenderness (mild epigastric tenderness, mild left upper/lower quadrant tenderness). absent: Diminished Bowel Sounds, Distended, Firm, Hyperactive Bowel Sounds, Hypoactive Bowel Sounds, Rebound, Rigid - Extremities Exam Extremities exam: Positive for: normal capillary refill, normal inspection, pedal pulses present. Negative for: calf tenderness, pedal edema, tenderness - Back Exam Back exam: absent: CVA tenderness (L), CVA tenderness (R) - Neurological Exam awake and alert, following all commands, moving all extremities, ambulating without issue - Psychiatric Exam Psychiatric exam: Normal Affect and Mood - Skin Skin Exam: Dry, Intact, Normal Color, Warm Discharge Plan - Discharge Medications Prescriptions: Amoxicillin/Clavulanate [Augmentin 875 MG-125 MG] 1 tab PO BID #20 tab - Follow Up Plan Condition: STABLE Disposition: HOME/ ROUTINE Instructions: Irritable Bowel Syndrome, Diverticulitis (DC), Flu Vaccine Additional Instructions: You were seen for your abdominal pain and diverticulitis despite prior antibiotic regimen. You have completed a course of IV antibiotics, undergone a scope procedure to evaluated the tissue, and are tolerating a diet. You have been given a prescription for Augmentin (an antibiotic). please fill it and take as prescribed. Please resume all other home medications as previously prescribed. Please follow up with Dr. Alcocer this upcoming Saturday (08/04/18). Please call the office to make an appointment. Please follow up with Dr. Jeffries (GI) in 6-8 weeks to pursue an elective colonoscopy. Please present to the nearest emergency department if you experience worsening or newly concerning symptoms. Referrals: Jason Alcocer MD [Staff Provider] - Deo Jeffries MD [Medical Doctor] - (Follow up in 6-8 weeks for elective colonoscopy) <Jason Alcocer - Last Filed: 08/02/18 18:03> Provider - Provider Date of Admission: 07/21/18 21:40 Attending physician: Jason Alcocer MD Consults: 07/21/18 21:54 Physician Consult Stat Comment: Consulting Provider: Deo Jeffries V Consulting Physician: Deo Jeffries V Reason for Consult: Diverticulitis 07/22/18 08:19 General Surgery Consult Routine Comment: Consulting Provider: Danis To Consulting Physician: Danis To Reason for Consult: distal descending colon diverticulitis Infectious Disease Consult Routine Comment: Consulting Provider: Kosta Henriquez Consulting Physician: Kosta Henriquez Reason for Consult: diverticulitis, failed outpt abx Hospital Course - Lab Results Lab Results: Micro Results 07/28/18 16:02 Stool C. difficile Antigen & Toxins A,B - Final 07/27/18 14:30 Stool Stool Culture - Final NO SALMONELLA, SHIGELLA OR CAMPYLOBACTER ISOLATED. 07/27/18 14:30 Stool C. difficile Antigen & Toxins A,B - Final 07/21/18 21:35 Blood Blood Culture - Final NO GROWTH AFTER 5 DAYS 07/21/18 21:35 Blood Gram Stain - Final TEST NOT PERFORMED 07/21/18 22:02 Blood Blood Culture - Final NO GROWTH AFTER 5 DAYS 07/21/18 22:02 Blood Gram Stain - Final TEST NOT PERFORMED 07/24/18 16:00 Stool Stool Culture - Final NO SALMONELLA, SHIGELLA OR CAMPYLOBACTER ISOLATED. 07/24/18 16:00 Stool Ova and Parasite Concentrate Exam - Final 07/24/18 16:00 Stool C. difficile Antigen & Toxins A,B - Final 07/21/18 21:10 Urine Urine Culture - Final No Growth (<1,000 CFU/ML) Most Recent Lab Values WBC 7.0 10^3/uL (4.5-11.0) 07/30/18 07:30 RBC 4.62 10^6/uL (3.5-6.1) 07/30/18 07:30 Hgb 13.5 g/dL (12.0-16.0) 07/30/18 07:30 Hct 40.0 % (36.0-48.0) 07/30/18 07:30 MCV 86.6 fl (80.0-105.0) 07/30/18 07:30 MCH 29.2 pg (25.0-35.0) 07/30/18 07:30 MCHC 33.8 g/dl (31.0-37.0) 07/30/18 07:30 RDW 13.6 % (11.5-14.5) 07/30/18 07:30 Plt Count 314 10^3/uL (120.0-450.0) 07/30/18 07:30 MPV 9.3 fl (7.0-11.0) 07/30/18 07:30 Gran % 54.9 % (50.0-68.0) 07/30/18 07:30 Lymph % (Auto) 34.7 % (22.0-35.0) 07/30/18 07:30 [place] % (Auto) 6.6 % (1.0-6.0) H 07/30/18 07:30 Eos % (Auto) 3.2 % (1.5-5.0) 07/30/18 07:30 Baso % (Auto) 0.6 % (0.0-3.0) 07/30/18 07:30 Gran # 3.82 (1.4-6.5) 07/30/18 07:30 Lymph # (Auto) 2.4 (1.2-3.4) 07/30/18 07:30 [place] # (Auto) 0.5 (0.1-0.6) 07/30/18 07:30 Eos # (Auto) 0.2 (0.0-0.7) 07/30/18 07:30 Baso # (Auto) 0.04 K/mm3 (0.0-2.0) 07/30/18 07:30 PT 12.9 SECONDS (9.4-12.5) H 07/28/18 08:15 INR 1.12 07/28/18 08:15 pO2 52 mm/Hg (30-55) 07/21/18 18:12 VBG pH 7.39 (7.32-7.43) 07/21/18 18:12 VBG pCO2 50.0 (40-60) 07/21/18 18:12 VBG HCO3 30.3 mmol/l (21-28) H 07/21/18 18:12 VBG Total CO2 31.8 mmol.L (22-28) H 07/21/18 18:12 VBG O2 Sat (Calc) 90.4 % (40-65) H 07/21/18 18:12 VBG Base Excess 4.2 mmol/L (0.0-2.0) H 07/21/18 18:12 VBG Potassium 3.8 mmol/L (3.6-5.2) 07/21/18 18:12 Sodium 140.0 mmol/L (132-148) 07/21/18 18:12 Chloride 105.0 mmol/L (98-107) 07/21/18 18:12 Glucose 105 mg/dl (65-105) 07/21/18 18:12 Lactate 1.2 mmol/L (0.7-2.1) 07/21/18 18:12 FiO2 21.0 % 07/21/18 18:12 Sodium 141 mmol/L (132-148) 07/30/18 07:30 Potassium 4.3 mmol/L (3.6-5.0) 07/30/18 07:30 Chloride 108 mmol/L (98-107) H 07/30/18 07:30 Carbon Dioxide 25 mmol/L (21-33) 07/30/18 07:30 Anion Gap 12 (10-20) 07/30/18 07:30 BUN 5 mg/dL (7-21) L 07/30/18 07:30 Creatinine 0.8 mg/dl (0.7-1.2) 07/30/18 07:30 Est GFR ( Amer) > 60 07/30/18 07:30 Est GFR (Non-Af Amer) > 60 07/30/18 07:30 Random Glucose 101 mg/dL (70-110) 07/30/18 07:30 Calcium 9.5 mg/dL (8.4-10.5) 07/30/18 07:30 Phosphorus 4.8 mg/dL (2.5-4.5) H 07/30/18 07:30 Magnesium 1.9 mg/dL (1.7-2.2) 07/30/18 07:30 Total Bilirubin 0.3 mg/dL (0.2-1.3) 07/30/18 07:30 AST 31 U/L (14-36) 07/30/18 07:30 ALT 33 U/L (7-56) 07/30/18 07:30 Alkaline Phosphatase 61 U/L (38-126) 07/30/18 07:30 Total Protein 6.6 g/dL (5.8-8.3) 07/30/18 07:30 Albumin 3.7 g/dL (3.0-4.8) 07/30/18 07:30 Globulin 2.9 gm/dL 07/30/18 07:30 Albumin/Globulin Ratio 1.3 (1.1-1.8) 07/30/18 07:30 Lipase 51 U/L (23-300) 07/21/18 18:12 Venous Blood Potassium 3.8 mmol/L (3.6-5.2) 07/21/18 18:12 Urine Color Yellow (YELLOW) 07/21/18 21:10 Urine Appearance Clear (CLEAR) 07/21/18 21:10 Urine pH 6.0 (4.7-8.0) 07/21/18 21:10 Ur Specific [place] <= 1.005 (1.005-1.035) 07/21/18 21:10 Urine Protein Negative mg/dL (<30 mg/dL) 07/21/18 21:10 Urine Glucose (UA) Negative mg/dL (NEGATIVE) 07/21/18 21:10 Urine Ketones Negative mg/dL (NEGATIVE) 07/21/18 21:10 Urine Blood Trace-intact (NEGATIVE) H 07/21/18 21:10 Urine Nitrate Negative (NEGATIVE) 07/21/18 21:10 Urine Bilirubin Negative (NEGATIVE) 07/21/18 21:10 Urine Urobilinogen 0.2 E.U./dL (<1 E.U./dL) 07/21/18 21:10 Ur Leukocyte Esterase Negative Remy/uL (NEGATIVE) 07/21/18 21:10 Urine RBC 2 - 5 /hpf (0-2) 07/21/18 21:10 Urine WBC 0 - 2 /hpf (0-6) 07/21/18 21:10 Ur Epithelial Cells 6 - 8 /hpf (0-5) 07/21/18 21:10 Urine Bacteria Few (NEG) 07/21/18 21:10 HIV 1&2 Ag/Ab, 4th Gen Nonreactive (Nonreactive) 07/22/18 08:30 - Hospital Course Hospital Course: Pt seen and examined. This is a late entry. I have reviewed the note of the medical secretary and agree with it. I have reviewed the meds and labs of the pt. I have discussed the assessment and plan with the resident. Pt with diverticulitis that has improved. Pt is going to be on PO Abx. Pt was cleared by Cardiology. She will need to stay out of work until she improves. Pt is able to tolerate her PO diet. Pt will be discharged.
--- NOTE | 2018-07-31 09:30 | PN ---
DATE: 07/31/2018 SUBJECTIVE: The patient seen in bed, in no acute distress, nontoxic. She is comfortable, appears to be improving. OBJECTIVE: VITAL SIGNS: Temperature is 98, blood pressure is 120/60, respiratory rate 20. HEENT: Unremarkable. NECK: Supple. LUNGS: Decreased breath sounds. HEART: Normal S1, S2. ABDOMEN: Soft, nontender. LABORATORY EXAMINATION: Reveals a white count of 7000, hemoglobin of 13, platelets of 314. Chemistries reveals a BUN of 5, creatinine of 0.8. Urinalysis is noted. Serology, her HIV is negative. Microbiology, C. diff antigen is negative, toxin is negative. Stool cultures, no growth. Another C. diff is also negative. Toxin and antigen are negative. Another stool cultures also negative. The blood cultures are negative. Review of orders reveals the patient to be on Zosyn and Dr. Alcocer's note from yesterday is reviewed. The patient had a biopsy. Pathology shows lymphoid aggregates and focal edema. ASSESSMENT AND PLAN: A 58-year-old female seen earlier today in 560 with acute sigmoid diverticulitis, status post sigmoidoscopy and biopsy, anxiety, hypothyroidism, on Zosyn. Biopsies noted to be negative, may switch to p.o. Augmentin upon discharge 875 p.o. twice daily and follow up with primary medical doctor and Gastroenterology, would continue the Augmentin for another 7-10 days, has significant diverticulitis. Kosta Henriquez MD
== END 2018-07-31 12:09 | disposition home or self-care (01) | DRG 392 ==
LOC: ED 16:42 → ERH 21:40 → 5RNO 07-22 00:44
PROVIDERS: ADMIT Internal Medicine Nephrology; ATTEND Internal Medicine Nephrology
PROC: 0DBP8ZX Excision of Rectum, Via Natural or Artificial Opening Endoscopic, Diagnostic (ICD-10-PCS; 2018-07-28)
PROC: 0DBN8ZX Excision of Sigmoid Colon, Via Natural or Artificial Opening Endoscopic, Diagnostic (ICD-10-PCS; principal; 2018-07-28 15:15)
DX: K57.32 Diverticulitis of large intestine without perforation or abscess without bleeding (principal); K52.9 Noninfective gastroenteritis and colitis, unspecified; R30.0 Dysuria; J45.909 Unspecified asthma, uncomplicated; F41.9 Anxiety disorder, unspecified; F32.9 Major depressive disorder, single episode, unspecified; E03.9 Hypothyroidism, unspecified; K21.9 Gastro-esophageal reflux disease without esophagitis; K64.0 First degree hemorrhoids; K62.1 Rectal polyp; Z91.5 Personal history of self-harm